=== PATIENT | male | born 1975 | race Hispanic/Latino ===

== ENCOUNTER 2018-06-06 12:32 | Inpatient (IN) | payer MEDICAID, OTHER ==
[2018-06-06] MEDS ORDERED: Naloxone 0.4 mg/ml Inj (Adult) ONE (12:42)
[2018-06-06] MEDS ORDERED: Succinylcholine 200 mg/10 ml Inj IV ONE ×2 (12:46→19:16)
[2018-06-06] MEDS ORDERED: Etomidate 20 mg/10ml Inj IV ONE (12:46)
[2018-06-06] MEDS ORDERED: Rocuronium 10 mg/ml (5 ml) ONE (12:51)
[2018-06-06] MEDS: Propofol 10 mg/ml 1,000 MG/100 ML VIAL IV PRN ×2 (13:00→19:30)
[2018-06-06] MEDS ORDERED: Propofol 10 mg/ml 1,000 MG/100 ML VIAL ONE (13:00)
--- NOTE | 2018-06-06 13:10 | ED PDOC ---
Arrival/HPI - General Chief Complaint: Cardiac Arrest Historian: Patient - History of Present Illness Narrative History of Present Illness (Text): 06/06/18 12:56 42 year old, whose past medical history includes migraines, who presents to the Emergency department brought in by EMS for cardiac arrest travel pta. Patient's father states patient drove up from [place] to [place]. When he got to the house he felt normal, sat down, and then began feeling hot and short of breath. Patient stiffened up and became unresponsive. Patient's father started CPR until EMS arrived. No pulse was found at the time. Upon EMS and ALS arrival, CPR was continued, patient went into V tach and was converted to sinus tach after 1 shock and patient started having spontaneous respirations. Patient was given 0.4 of narcan and patient had minimal response. Patient arrived to the ED obtunded w/agonal breathing. A second dose of 0.4 narcan was administered in the Emergency department w/o any improvement in mentation or respirations. Patient was then intubated by me for impending respiratory failure and airway protection. Time/Duration: Prior to Arrival Symptom Onset: Sudden Symptom Course: Unchanged Activities at Onset: Light Context: Home Past Medical History - Provider Review Nursing Documentation Reviewed: Yes - Infectious Disease Hx of Infectious Diseases: None - Cardiac Hx Cardiac Disorders: No - Pulmonary Hx Respiratory Disorders: No - HEENT Hx HEENT Disorder: No - Renal Hx Renal Disorder: No - Psychiatric Hx Substance Use: Yes - Anesthesia Hx Anesthesia: No Family/Social History - Physician Review Nursing Documentation Reviewed: Yes Family/Social History: Unknown Family HX Smoking Status: Smoker Currrent Status Unknown Hx Alcohol Use: No Hx Substance Use: Yes Allergies/Home Meds Allergies/Adverse Reactions: Allergies No Known Allergies Allergy (Verified 06/06/18 15:28) Home Medications: Home Meds Medication Instructions Recorded Confirmed RX: Unobtainable 06/06/18 06/06/18 Review of Systems - Review of Systems Systems not reviewed;Unavailable: Acuity of Condition Physical Exam - Physical Exam Narrative Physical Exam (Text): 06/06/18 13:11 Gen: Unresponsive. Head: NCAT. HEENT: EYES: pupils 4mm, reactive. MOUTH: posterior pharynx without erythema , uvula midline. CV: tachycardia. (+) S1S2, no M/G/R LUNGS: Agonal breathing. Rhonchi. Intubated. Abd: Soft, flat, nl BS. Neuro: GCS 6. ext: no cyanosis or edema Finger Stick Blood Glucose: 246 Medical Decision Making ED Course and Treatment: 06/06/18 13:12 Impression: 42 year old male presents to the Emergency department brought in by EMS for cardiac arrest travel pta. Plan: -- ABG -- Labs -- EKG -- Cardiac ISO -- Chest X-ray -- Urinalysis -- NG Tube -- [place] -- Reassess and disposition Progress Notes: 06/06/18 11:52 EMS states they received call about patient. 06/06/18 12:30 Patient arrived to Emergency department unresponsive. Pt was in sinus tachycardia. 0.4 of narcan was administered with no response. 06/06/18 12:45 20 of etomidate and 100 of succs was administered. 06/06/18 12:40 EKG reviewed, shows sinus tachycardia at 73 bpm. Normal Interval. Normal axis. Q wave intervals. ST elevations in V5, V6, AVL, and V1. EKG sent to Dr. Rush, who believes abnormal EKG is due to electrolyte imbalance. Labs should be reviewed, and EKG repeated. 06/06/18 12:50 8.0 ET tube placed. pt intubated. Good color noted. 22 lip line noted. 06/06/18 13:00 Propophol started 06/06/18 13:[address] Swanson, wants a stop on the amnio drip. 06/06/18 13:20 Pt w/questionalbe seizure-like activity (though coughing), will start Keppra. 06/06/18 13:[address] Berman, who agrees with kepra and suggests CT head. 06/06/18 14:28 Chest X-ray reviewed, shows: IMPRESSION: Satisfactory position of endotracheal tube. Nasogastric tube tip in the stomach. The side hole is at the level of the gastroesophageal junction. - Scribe Statement The provider has reviewed the documentation as recorded by the Scribe Geeta Barnhart All medical record entries made by the Scribe were at my direction and personal ly dictated by me. I have reviewed the chart and agree that the record accurately reflects my personal performance of the history, physical exam, medical decision making, and the department course for this patient. I have also personally directed, reviewed, and agree with the discharge instructions and disposition. Disposition/Present on Arrival - Present on Arrival Any Indicators Present on Arrival: No History of DVT/PE: No History of Uncontrolled Diabetes: No Urinary Catheter: No History of Decub. Ulcer: No History Surgical Site Infection Following: None - Disposition Have Diagnosis and Disposition been Completed?: Yes Diagnosis: Cardiac arrest Disposition: HOSPITALIZED Disposition Time: 13:00 Patient Plan: Admission, ICU Patient Problems: Current Active Problems Problem Status Onset Cardiac arrest Acute Status epilepticus Acute Condition: CRITICAL
[2018-06-06 13:13] LABS: BASO # 0.02 K/mm3 (0.0-2.0); BASO % 0.2 % (0.0-3.0); EOS # 0.1 (0.0-0.7); GRAN # 5.36 (1.4-6.5); GRAN % 52.6 % (50.0-68.0); HEMOGLOBIN 13.9 g/dL (14.0-18.0); LYMPH # 3.7 (1.2-3.4); LYMPH % 36.6 % (22.0-35.0); MEAN CELL VOLUME 97.6 fl (80.0-105.0); MEAN CORPUSCULAR HEMOGLOBIN 32.9 pg (25.0-35.0); MEAN CORPUSCULAR HGB CONC 33.7 g/dl (31.0-37.0); MEAN PLATELET VOLUME 9.8 fl (7.0-11.0); MONO % 9.6 % (1.0-6.0); RBC 4.22 10^6/uL (3.5-6.1); RED CELL DISTRIBUTION WIDTH 13.1 % (11.5-14.5); WHITE BLOOD COUNT 10.2 10^3/uL (4.5-11.0)
[2018-06-06 13:16] LABS: INR 1.08; PROTHROMBIN TIME 12.4 SECONDS (9.4-12.5)
[2018-06-06 13:23] LABS: ACETAMINOPHEN < 10.0 ug/ml (10.0-20.0); ALB/GLOB RATIO 1.4 (1.1-1.8); ALBUMIN 4.2 g/dL (3.0-4.8); ALT/SGPT 53 U/L (7-56); AST/SGOT 56 U/L (17-59); BLOOD UREA NITROGEN 14 mg/dL (7-21); CALCIUM 8.7 mg/dL (8.4-10.5); GFR NON-AFRICAN AMERICAN > 60; SALICYLATE < 1 mg/dL (2.0-20.0)
[2018-06-06] MEDS ORDERED: levETIRAcetam 1000mg/100ml NS 100 ML IV ONE (13:40)
--- NOTE | 2018-06-06 14:03 | RAD ---
Date of service: 06/06/2018 HISTORY: ETT placement COMPARISON: No prior. FINDINGS: LUNGS: No active pulmonary disease. PLEURA: No significant pleural effusion identified, no pneumothorax apparent. CARDIOVASCULAR: No atherosclerotic calcification present Normal. OSSEOUS STRUCTURES: No significant abnormalities. VISUALIZED UPPER ABDOMEN: Normal. OTHER FINDINGS: Satisfactory position of recently placed support apparatus including endotracheal tube and nasogastric tube. Optimal positioning/placement of the nasogastric tube would involve advancement by approximately 5 cm (the distal side hole is at the gastroesophageal junction). IMPRESSION: Satisfactory position of endotracheal tube. Nasogastric tube tip in the stomach. The side hole is at the level of the gastroesophageal junction.
--- NOTE | 2018-06-06 14:09 | CP.PCM.HP ---
Present on Admission - Present on Admission Any Indicators Present on Admission: No Review of Systems - Review of Systems Systems not reviewed;Unavailable: Intubated Past Patient History - Infectious Disease Hx of Infectious Diseases: None - Past Social History Smoking Status: Smoker Currrent Status Unknown - CARDIAC Hx Cardiac Disorders: No - PULMONARY Hx Respiratory Disorders: No - HEENT Hx HEENT Problems: No - RENAL Hx Chronic Kidney Disease: No - PSYCHIATRIC Hx Substance Use: Yes - ANESTHESIA Hx Anesthesia: No Meds Allergies/Adverse Reactions: Allergies Allergy/AdvReac Type Severity Reaction Status Date / Time No Known Allergies Allergy Unverified 06/06/18 13:01 Physical Exam - Constitutional Appears: In Acute Distress - Head Exam Head Exam: ATRAUMATIC, NORMOCEPHALIC - ENT Exam ENT Exam: Mucous Membranes Moist Additional comments: ett in place - Neck Exam Neck exam: Negative for: Lymphadenopathy, Thyromegaly - Respiratory Exam Respiratory Exam: Clear to Auscultation Bilateral. absent: Decreased Breath Sounds, Rales, Rhonchi, Wheezes, Respiratory Distress, Stridor - Cardiovascular Exam Cardiovascular Exam: REGULAR RHYTHM, +S1, +S2. absent: Systolic Murmur - GI/Abdominal Exam GI & Abdominal Exam: Hypoactive Bowel Sounds, Soft. absent: Distended, Guarding, Rebound, Rigid - Extremities Exam Extremities exam: Positive for: normal capillary refill. Negative for: joint swelling, pedal edema, tenderness - Neurological Exam Neurological exam: Altered - Skin Skin Exam: Dry, Intact, Normal Color Results - Vital Signs Recent Vital Signs: Last Vital Signs Temp 97.5 F L 06/06/18 13:47 Pulse 107 H 06/06/18 13:47 Resp 27 H 06/06/18 13:47 BP 134/56 L 06/06/18 13:47 Pulse Ox 93 L 06/06/18 13:47 - Labs Result Diagrams: 06/06/18 13:00 06/06/18 13:00 Labs: Laboratory Results - last 24 hr 06/06/18 06/06/18 06/06/18 13:00 13:00 13:00 WBC 10.2 RBC 4.22 Hgb 13.9 L Hct 41.2 L MCV 97.6 MCH 32.9 MCHC 33.7 RDW 13.1 Plt Count 204 MPV 9.8 Gran % 52.6 Lymph % (Auto) 36.6 H [place] % (Auto) 9.6 H Eos % (Auto) 1.0 L Baso % (Auto) 0.2 Gran # 5.36 Lymph # (Auto) 3.7 H [place] # (Auto) 1.0 H Eos # (Auto) 0.1 Baso # (Auto) 0.02 PT 12.4 INR 1.08 Sodium 139 Potassium 3.4 L Chloride 106 Carbon Dioxide 17 L Anion Gap 19 BUN 14 Creatinine 0.9 Est GFR ( Amer) > 60 Est GFR (Non-Af Amer) > 60 Random Glucose 241 H Calcium 8.7 Magnesium 2.0 Total Bilirubin 0.4 AST 56 ALT 53 Alkaline Phosphatase 58 Lactate Dehydrogenase 625 Total Creatine Kinase 84 Total Protein 7.1 Albumin 4.2 Globulin 2.9 Albumin/Globulin Ratio 1.4 Salicylates Acetaminophen Alcohol, Quantitative 06/06/18 06/06/18 13:00 13:00 WBC RBC Hgb Hct MCV MCH MCHC RDW Plt Count MPV Gran % Lymph % (Auto) [place] % (Auto) Eos % (Auto) Baso % (Auto) Gran # Lymph # (Auto) [place] # (Auto) Eos # (Auto) Baso # (Auto) PT INR Sodium Potassium Chloride Carbon Dioxide Anion Gap BUN Creatinine Est GFR ( Amer) Est GFR (Non-Af Amer) Random Glucose Calcium Magnesium Total Bilirubin AST ALT Alkaline Phosphatase Lactate Dehydrogenase Total Creatine Kinase Total Protein Albumin Globulin Albumin/Globulin Ratio Salicylates < 1 L Acetaminophen < 10.0 L Alcohol, Quantitative < 10 Assessment & Plan - Date & Time Date: 06/06/18 Time: 14:09
[2018-06-06] MEDS ORDERED: Midazolam 2 MG/2 ML VIAL IVP STA ×2 (14:12→14:35)
[2018-06-06 14:19] LABS: URINE BILIRUBIN NEGATIVE (NEGATIVE); URINE BLOOD SMALL (NEGATIVE); URINE GLUCOSE (UA) NEGATIVE (NEGATIVE); URINE LEUKOCYTE ESTERASE NEGATIVE Leu/uL (NEGATIVE); URINE PROTEIN 100 mg/dL (<30 mg/dL); URINE UROBILINOGEN 0.2 E.U./dL (<1 E.U./dL)
[2018-06-06 14:21] LABS: ARTERIAL BLOOD GAS HCO3 11.1 mmol/L (21-28); ARTERIAL BLOOD GAS O2 CAPACITY 19.4 mL/dl (16-24); ARTERIAL BLOOD GAS O2 CONTENT 19.6 ML/dl (15-23); ARTERIAL BLOOD GAS O2 SAT 100.9 % (95-98); ARTERIAL BLOOD GAS PCO2 35 mm/Hg (35-45); ARTERIAL BLOOD GAS TCO2 12.2 mmol.L (22-28)
[2018-06-06 14:24] LABS: ARTERIAL BLOOD GAS PH 7.11 (7.35-7.45)
[2018-06-06 14:26] LABS: URINE APPEARANCE CLEAR (CLEAR); URINE COLOR YELLOW (YELLOW)
[2018-06-06] MEDS ORDERED: Midazolam 100 mg/100ml in NS 100 MG/100 ML SOL IV PRN (14:28)
[2018-06-06 14:29] LABS: TROPONIN I < 0.01 ng/mL
[2018-06-06] MEDS ORDERED: Midazolam 2 MG/2 ML VIAL ONE ×2 (14:32→15:01)
[2018-06-06] MEDS ORDERED: Midazolam 50 mg/10 ml Inj IVP ONE (14:36)
[2018-06-06 14:42] LABS: URINE BACTERIA FEW /hpf; URINE RBC 0 - 2 /hpf (0-2)
[2018-06-06 14:45] LABS: BARBITURATES, UR NEGATIVE (NEGATIVE); BENZODIAZEPINES, UR NEGATIVE (NEGATIVE); OPIATES, UR NEGATIVE (NEGATIVE); PHENCYCLIDINE, UR NEGATIVE (NEGATIVE)
[2018-06-06] MEDS ORDERED: Sodium Bicarbonate 8.4% 80 MEQ in Dextrose 5%/0.45% NS 1,000 ML IV SCH (14:45)
[2018-06-06] MEDS: Midazolam 100 mg/100ml in NS 100 MG/100 ML SOL IV PRN (14:55)
[2018-06-06] MEDS ORDERED: Midazolam 2 MG/2 ML VIAL IV ONE ×2 (15:00)
[2018-06-06] MEDS ORDERED: Sodium Chloride 0.9% 500 ML IV STA (15:36)
--- NOTE | 2018-06-06 15:50 | CP.PCM.CON ---
History of Present Illness - History of Present Illness History of Present Illness: Neurology Consultation Note: Mr. Robbins is a 42-year-old man with no significant past medical history, who went to his father's house today, had an episode of seizure-like activity, and subsequently became pulseless. EMS was called and arrived on the scene after chest compressions were started. He was in Vtach and was shocked. He then converted to sinus tachycardia. He was brought to the ED and required intubation for airway protection. He appeared to have tonic seizures and was given Ativan, started on propofol, but his BP dropped. He was then started on Versed drip and loaded with Keppra as well. He continues to have tonic movements that are sometimes voluntary in nature. Review of Systems - Review of Systems Systems not reviewed;Unavailable: Intubated Past Patient History - Infectious Disease Hx of Infectious Diseases: None - Past Social History Smoking Status: Smoker Currrent Status Unknown - CARDIAC Hx Cardiac Disorders: No - PULMONARY Hx Respiratory Disorders: No - HEENT Hx HEENT Problems: No - RENAL Hx Chronic Kidney Disease: No - PSYCHIATRIC Hx Substance Use: Yes - ANESTHESIA Hx Anesthesia: No Meds Allergies/Adverse Reactions: Allergies Allergy/AdvReac Type Severity Reaction Status Date / Time No Known Allergies Allergy Verified 06/06/18 15:28 - Medications Medications: Current Medications Propofol (Diprivan) 1,000 mg in 100 mls @ 2.041 mls/hr IV .Q24H PRN; Protocol PRN Reason: TITRATE PER MD ORDER Last Admin: 06/06/18 13:00 Dose: 5 mcg/kg/min, 2.041 mls/hr Midazolam 100 mg/100ml in NS (Midazolam 100 Mg/100ml In Ns) 100 mg in 100 mls @ 5 mls/hr IV .Q20H PRN; Protocol PRN Reason: Agitation Last Admin: 06/06/18 14:55 Dose: 5 mg/hr, 5 mls/hr Sodium Bicarbonate 80 meq/ (Dextrose/Sodium Chloride) 1,080 mls @ 150 mls/hr IV .Q7H12M JENNIFER Last Admin: 06/06/18 15:27 Dose: 150 mls/hr Potassium Chloride (Potassium Chloride 20 Meq/100 Ml) 20 meq in 100 mls @ 50 mls/hr IVPB ONCE ONE Stop: 06/06/18 16:48 Sodium Chloride (Sodium Chloride 0.9%) 500 mls @ 999 mls/hr IV .Q31M STA Stop: 06/06/18 16:06 Physical Exam - Neurological Exam Additional comments: Moves all extremities, but is intubated and sedated currently. Pupils are dilated, but responsive to light from 9mm to 4mm bilaterally. Reflexes are normal, plantar responses are downgoing. Results - Vital Signs Recent Vital Signs: Last Vital Signs Temp 97.5 F L 06/06/18 13:47 Pulse 107 H 06/06/18 13:47 Resp 27 H 06/06/18 13:47 BP 134/56 L 06/06/18 13:47 Pulse Ox 93 L 06/06/18 13:47 - Labs Result Diagrams: 06/06/18 13:00 06/06/18 13:00 Labs: Laboratory Results - last 24 hr 06/06/18 06/06/18 06/06/18 13:00 13:00 13:00 WBC 10.2 RBC 4.22 Hgb 13.9 L Hct 41.2 L MCV 97.6 MCH 32.9 MCHC 33.7 RDW 13.1 Plt Count 204 MPV 9.8 Gran % 52.6 Lymph % (Auto) 36.6 H [place] % (Auto) 9.6 H Eos % (Auto) 1.0 L Baso % (Auto) 0.2 Gran # 5.36 Lymph # (Auto) 3.7 H [place] # (Auto) 1.0 H Eos # (Auto) 0.1 Baso # (Auto) 0.02 PT 12.4 INR 1.08 pCO2 pO2 HCO3 ABG pH ABG Total CO2 ABG O2 Saturation ABG O2 Content ABG Base Excess ABG Hemoglobin ABG Carboxyhemoglobin POC ABG HHb (Measured) ABG Methemoglobin ABG O2 Capacity Hgb O2 Saturation FiO2 Sodium 139 Potassium 3.4 L Chloride 106 Carbon Dioxide 17 L Anion Gap 19 BUN 14 Creatinine 0.9 Est GFR ( Amer) > 60 Est GFR (Non-Af Amer) > 60 Random Glucose 241 H Calcium 8.7 Magnesium 2.0 Total Bilirubin 0.4 AST 56 ALT 53 Alkaline Phosphatase 58 Lactate Dehydrogenase 625 Total Creatine Kinase 84 Troponin I < 0.01 Total Protein 7.1 Albumin 4.2 Globulin 2.9 Albumin/Globulin Ratio 1.4 Urine Color Urine Appearance Urine pH Ur Specific [place] Urine Protein Urine Glucose (UA) Urine Ketones Urine Blood Urine Nitrate Urine Bilirubin Urine Urobilinogen Ur Leukocyte Esterase Urine RBC Urine WBC Ur Epithelial Cells Urine Bacteria Urine Other Salicylates Urine Opiates Screen Urine Methadone Screen Acetaminophen Ur Barbiturates Screen Ur Phencyclidine Scrn Ur Amphetamines Screen U Benzodiazepines Scrn U Oth Cocaine Metabols U Cannabinoids Screen Alcohol, Quantitative 06/06/18 06/06/18 06/06/18 13:00 13:00 13:30 WBC RBC Hgb Hct MCV MCH MCHC RDW Plt Count MPV Gran % Lymph % (Auto) [place] % (Auto) Eos % (Auto) Baso % (Auto) Gran # Lymph # (Auto) [place] # (Auto) Eos # (Auto) Baso # (Auto) PT INR pCO2 pO2 HCO3 ABG pH ABG Total CO2 ABG O2 Saturation ABG O2 Content ABG Base Excess ABG Hemoglobin ABG Carboxyhemoglobin POC ABG HHb (Measured) ABG Methemoglobin ABG O2 Capacity Hgb O2 Saturation FiO2 Sodium Potassium Chloride Carbon Dioxide Anion Gap BUN Creatinine Est GFR ( Amer) Est GFR (Non-Af Amer) Random Glucose Calcium Magnesium Total Bilirubin AST ALT Alkaline Phosphatase Lactate Dehydrogenase Total Creatine Kinase Troponin I Total Protein Albumin Globulin Albumin/Globulin Ratio Urine Color Yellow Urine Appearance Clear Urine pH 6.0 Ur Specific [place] >= 1.030 Urine Protein 100 H Urine Glucose (UA) Negative Urine Ketones Negative Urine Blood Small H Urine Nitrate Negative Urine Bilirubin Negative Urine Urobilinogen 0.2 Ur Leukocyte Esterase Negative Urine RBC 0 - 2 Urine WBC 1 - 3 Ur Epithelial Cells 1 - 3 Urine Bacteria Few Urine Other Usperm Salicylates < 1 L Urine Opiates Screen Urine Methadone Screen Acetaminophen < 10.0 L Ur Barbiturates Screen Ur Phencyclidine Scrn Ur Amphetamines Screen U Benzodiazepines Scrn U Oth Cocaine Metabols U Cannabinoids Screen Alcohol, Quantitative < 10 06/06/18 06/06/18 13:30 14:05 WBC RBC Hgb Hct MCV MCH MCHC RDW Plt Count MPV Gran % Lymph % (Auto) [place] % (Auto) Eos % (Auto) Baso % (Auto) Gran # Lymph # (Auto) [place] # (Auto) Eos # (Auto) Baso # (Auto) PT INR pCO2 35 pO2 283.0 H HCO3 11.1 L ABG pH 7.11 L* ABG Total CO2 12.2 L ABG O2 Saturation 100.9 H ABG O2 Content 19.6 ABG Base Excess -17.5 L ABG Hemoglobin 14.0 ABG Carboxyhemoglobin 4.0 H POC ABG HHb (Measured) -0.9 L ABG Methemoglobin 0.7 ABG O2 Capacity 19.4 Hgb O2 Saturation 96.2 FiO2 60.0 Sodium Potassium Chloride Carbon Dioxide Anion Gap BUN Creatinine Est GFR ( Amer) Est GFR (Non-Af Amer) Random Glucose Calcium Magnesium Total Bilirubin AST ALT Alkaline Phosphatase Lactate Dehydrogenase Total Creatine Kinase Troponin I Total Protein Albumin Globulin Albumin/Globulin Ratio Urine Color Urine Appearance Urine pH Ur Specific [place] Urine Protein Urine Glucose (UA) Urine Ketones Urine Blood Urine Nitrate Urine Bilirubin Urine Urobilinogen Ur Leukocyte Esterase Urine RBC Urine WBC Ur Epithelial Cells Urine Bacteria Urine Other Salicylates Urine Opiates Screen Negative Urine Methadone Screen Negative Acetaminophen Ur Barbiturates Screen Negative Ur Phencyclidine Scrn Negative Ur Amphetamines Screen Negative U Benzodiazepines Scrn Negative U Oth Cocaine Metabols Negative U Cannabinoids Screen Positive H Alcohol, Quantitative Assessment & Plan (1) Status epilepticus Assessment and Plan: Continue Keppra and Versed drip at 5 mg/hr after a 5 mg bolus. Will order STAT VEEG to evaluate for status since the patient's symptoms are not typical. STAT CT scan of the head is also needed now for further evaluation. MRI of the brain can be obtained when the patient is stable. Admit to ICU for close observation. Thank you for this consultation. Status: Acute
--- NOTE | 2018-06-06 15:54 | CP.PCM.HP ---
<Mukul Mueller - Last Filed: 06/06/18 17:21> History of Present Illness - History of Present Illness History of Present Illness: Mukul Ervin DO: [facility] for Hospitalist Service 42 year old male with a past medical history of cannabinoid hyperemesis syndrome who presented to [facility] [place] for cardiac arrest. Patient drove in from [place] to visit family and reported feeling short of breath and sat down for a minute and then started arching his back and became unresponsive. Patient was noted to be pulseless, 911 was called, father started CPR on patient and neighbor came over who assisted with breathing. In the field the patient underwent CPR and was shocked for v-fibrillation with ROSC. In the ED patient was intubated and was agitated requiring Propofol and Versed drip. Patient's EKG showed somed ST changed in V4-V6; code heart correspondence section supervisor physician was spoken to in regards to the EKG findings. Patient was also found to be acidotic warranting a bicarbonate drip. Neurology was consulted for what appeared to be convulsions and recommended Midazolam to assist with seizure control. Important to note, patient's family report he had one week of a head cold and when he returned home he was sweating. Otherwise, 12 point ROS could not be obtained secondary to patient being unresponsive and intubated. PMH: cannabis hyperemesis syndrome, migraines PSH: unknown Allergies: NKDA Social: Unemployed, has a girlfriend, uses Marijuana Present on Admission - Present on Admission Any Indicators Present on Admission: No Review of Systems - Review of Systems Systems not reviewed;Unavailable: Acuity of Condition, Altered Mental Status, Intubated Past Patient History - Infectious Disease Hx of Infectious Diseases: None - Past Social History Smoking Status: Smoker Currrent Status Unknown - CARDIAC Hx Cardiac Disorders: No - PULMONARY Hx Respiratory Disorders: No - HEENT Hx HEENT Problems: No - RENAL Hx Chronic Kidney Disease: No - PSYCHIATRIC Hx Substance Use: Yes - ANESTHESIA Hx Anesthesia: No Meds Allergies/Adverse Reactions: Allergies Allergy/AdvReac Type Severity Reaction Status Date / Time No Known Allergies Allergy Verified 06/06/18 15:28 Physical Exam - Constitutional Appears: Agitated - Eye Exam Eye Exam: PERRL Pupil Exam: Miosis - ENT Exam ENT Exam: Mucous Membranes Dry - Respiratory Exam Respiratory Exam: Clear to Auscultation Bilateral, NORMAL BREATHING PATTERN. absent: Accessory Muscle Use - Cardiovascular Exam Cardiovascular Exam: Tachycardia, +S1, +S2 - GI/Abdominal Exam GI & Abdominal Exam: Normal Bowel Sounds. absent: Guarding - Exam Additional comments: [place] in - Extremities Exam Extremities exam: Positive for: normal inspection, pedal pulses present. Negative for: calf tenderness - Skin Skin Exam: Dry, Intact, Normal Color, Warm Results - Vital Signs Recent Vital Signs: Last Vital Signs Temp 97.5 F L 06/06/18 13:47 Pulse 107 H 06/06/18 13:47 Resp 27 H 06/06/18 13:47 BP 134/56 L 06/06/18 13:47 Pulse Ox 93 L 06/06/18 13:47 - Labs Result Diagrams: 06/06/18 13:00 06/06/18 13:00 Labs: Laboratory Results - last 24 hr 06/06/18 06/06/18 06/06/18 13:00 13:00 13:00 WBC 10.2 RBC 4.22 Hgb 13.9 L Hct 41.2 L MCV 97.6 MCH 32.9 MCHC 33.7 RDW 13.1 Plt Count 204 MPV 9.8 Gran % 52.6 Lymph % (Auto) 36.6 H Mcculloch % (Auto) 9.6 H Eos % (Auto) 1.0 L Baso % (Auto) 0.2 Gran # 5.36 Lymph # (Auto) 3.7 H Mcculloch # (Auto) 1.0 H Eos # (Auto) 0.1 Baso # (Auto) 0.02 PT 12.4 INR 1.08 pCO2 pO2 HCO3 ABG pH ABG Total CO2 ABG O2 Saturation ABG O2 Content ABG Base Excess ABG Hemoglobin ABG Carboxyhemoglobin POC ABG HHb (Measured) ABG Methemoglobin ABG O2 Capacity Hgb O2 Saturation FiO2 Sodium 139 Potassium 3.4 L Chloride 106 Carbon Dioxide 17 L Anion Gap 19 BUN 14 Creatinine 0.9 Est GFR ( Amer) > 60 Est GFR (Non-Af Amer) > 60 Random Glucose 241 H Calcium 8.7 Magnesium 2.0 Total Bilirubin 0.4 AST 56 ALT 53 Alkaline Phosphatase 58 Lactate Dehydrogenase 625 Total Creatine Kinase 84 Troponin I < 0.01 Total Protein 7.1 Albumin 4.2 Globulin 2.9 Albumin/Globulin Ratio 1.4 Urine Color Urine Appearance Urine pH Ur Specific [place] Urine Protein Urine Glucose (UA) Urine Ketones Urine Blood Urine Nitrate Urine Bilirubin Urine Urobilinogen Ur Leukocyte Esterase Urine RBC Urine WBC Ur Epithelial Cells Urine Bacteria Urine Other Salicylates Urine Opiates Screen Urine Methadone Screen Acetaminophen Ur Barbiturates Screen Ur Phencyclidine Scrn Ur Amphetamines Screen U Benzodiazepines Scrn U Oth Cocaine Metabols U Cannabinoids Screen Alcohol, Quantitative 06/06/18 06/06/18 06/06/18 13:00 13:00 13:30 WBC RBC Hgb Hct MCV MCH MCHC RDW Plt Count MPV Gran % Lymph % (Auto) Mcculloch % (Auto) Eos % (Auto) Baso % (Auto) Gran # Lymph # (Auto) Mcculloch # (Auto) Eos # (Auto) Baso # (Auto) PT INR pCO2 pO2 HCO3 ABG pH ABG Total CO2 ABG O2 Saturation ABG O2 Content ABG Base Excess ABG Hemoglobin ABG Carboxyhemoglobin POC ABG HHb (Measured) ABG Methemoglobin ABG O2 Capacity Hgb O2 Saturation FiO2 Sodium Potassium Chloride Carbon Dioxide Anion Gap BUN Creatinine Est GFR ( Amer) Est GFR (Non-Af Amer) Random Glucose Calcium Magnesium Total Bilirubin AST ALT Alkaline Phosphatase Lactate Dehydrogenase Total Creatine Kinase Troponin I Total Protein Albumin Globulin Albumin/Globulin Ratio Urine Color Yellow Urine Appearance Clear Urine pH 6.0 Ur Specific [place] >= 1.030 Urine Protein 100 H Urine Glucose (UA) Negative Urine Ketones Negative Urine Blood Small H Urine Nitrate Negative Urine Bilirubin Negative Urine Urobilinogen 0.2 Ur Leukocyte Esterase Negative Urine RBC 0 - 2 Urine WBC 1 - 3 Ur Epithelial Cells 1 - 3 Urine Bacteria Few Urine Other Usperm Salicylates < 1 L Urine Opiates Screen Urine Methadone Screen Acetaminophen < 10.0 L Ur Barbiturates Screen Ur Phencyclidine Scrn Ur Amphetamines Screen U Benzodiazepines Scrn U Oth Cocaine Metabols U Cannabinoids Screen Alcohol, Quantitative < 10 06/06/18 06/06/18 13:30 14:05 WBC RBC Hgb Hct MCV MCH MCHC RDW Plt Count MPV Gran % Lymph % (Auto) M[place]ulloch % (Auto) Eos % (Auto) Baso % (Auto) Gran # Lymph # (Auto) M[place]ulloch # (Auto) Eos # (Auto) Baso # (Auto) PT INR pCO2 35 pO2 283.0 H HCO3 11.1 L ABG pH 7.11 L* ABG Total CO2 12.2 L ABG O2 Saturation 100.9 H ABG O2 Content 19.6 ABG Base Excess -17.5 L ABG Hemoglobin 14.0 ABG Carboxyhemoglobin 4.0 H POC ABG HHb (Measured) -0.9 L ABG Methemoglobin 0.7 ABG O2 Capacity 19.4 Hgb O2 Saturation 96.2 FiO2 60.0 Sodium Potassium Chloride Carbon Dioxide Anion Gap BUN Creatinine Est GFR ( Amer) Est GFR (Non-Af Amer) Random Glucose Calcium Magnesium Total Bilirubin AST ALT Alkaline Phosphatase Lactate Dehydrogenase Total Creatine Kinase Troponin I Total Protein Albumin Globulin Albumin/Globulin Ratio Urine Color Urine Appearance Urine pH Ur Specific [place] Urine Protein Urine Glucose (UA) Urine Ketones Urine Blood Urine Nitrate Urine Bilirubin Urine Urobilinogen Ur Leukocyte Esterase Urine RBC Urine WBC Ur Epithelial Cells Urine Bacteria Urine Other Salicylates Urine Opiates Screen Negative Urine Methadone Screen Negative Acetaminophen Ur Barbiturates Screen Negative Ur Phencyclidine Scrn Negative Ur Amphetamines Screen Negative U Benzodiazepines Scrn Negative U Oth Cocaine Metabols Negative U Cannabinoids Screen Positive H Alcohol, Quantitative - EKG Data Rate: Tachycardia Assessment & Plan - Assessment and Plan (Free Text) Assessment: 42 year old male with a past medical history of cannabis hyperemesis syndrome who came in s/p cardiac arrest and obtained ROSC with CPR and defibrillation. Plan: 1) S/P cardiac arrest - Intubated on mechanical ventilation - EKG shows ST-T changes in V4-V6; will trend troponins - ICU and cardiology consulted - Contacted on-call (code heart manager care management) given EKG showed some ST elevation in V4-V6; agreed that EKG findings most likely represent pseudoinfarct pattern seen in the setting of cannabinoid ingestion, acidosis, and electrolyte abnormalities - Dr. Hernandez consulted 2) Seizures and agitation - CT head ordered - Video EEG - neurology consulted - Propafol and Versed ggt; titrate to reduce seizure/agitation - Consider LP 3) Metabolic acidosis - D5W 1/2 NS with 80 mEq of bicarbonate at 150 mls/hr 4) Fever - Tylenol 650 mg q6h PRN for fever - blood culture, urine cultures, and sputum cultures Case reviewed and discussed with attending physician, Dr. Berman - Date & Time Date: 06/06/18 Time: 17:25 <Cullen,Anwar A - Last Filed: 06/06/18 19:04> Results - Vital Signs Recent Vital Signs: Last Vital Signs Temp 100.0 F H 06/06/18 18:14 Pulse 88 06/06/18 18:14 Resp 30 H 06/06/18 16:51 BP 93/56 L 06/06/18 18:15 Pulse Ox 100 06/06/18 18:14 - Labs Result Diagrams: 06/06/18 13:00 06/06/18 13:00 Labs: Laboratory Results - last 24 hr 06/06/18 06/06/18 06/06/18 13:00 13:00 13:00 WBC 10.2 RBC 4.22 Hgb 13.9 L Hct 41.2 L MCV 97.6 MCH 32.9 MCHC 33.7 RDW 13.1 Plt Count 204 MPV 9.8 Gran % 52.6 Lymph % (Auto) 36.6 H Mcculloch % (Auto) 9.6 H Eos % (Auto) 1.0 L Baso % (Auto) 0.2 Gran # 5.36 Lymph # (Auto) 3.7 H Mcculloch # (Auto) 1.0 H Eos # (Auto) 0.1 Baso # (Auto) 0.02 PT 12.4 INR 1.08 pCO2 pO2 HCO3 ABG pH ABG Total CO2 ABG O2 Saturation ABG O2 Content ABG Base Excess ABG Hemoglobin ABG Carboxyhemoglobin POC ABG HHb (Measured) ABG Methemoglobin ABG O2 Capacity Hgb O2 Saturation FiO2 Sodium 139 Potassium 3.4 L Chloride 106 Carbon Dioxide 17 L Anion Gap 19 BUN 14 Creatinine 0.9 Est GFR ( Amer) > 60 Est GFR (Non-Af Amer) > 60 Random Glucose 241 H Calcium 8.7 Magnesium 2.0 Total Bilirubin 0.4 AST 56 ALT 53 Alkaline Phosphatase 58 Lactate Dehydrogenase 625 Total Creatine Kinase 84 CK-MB (CK-2) CK-MB (CK-2) % Troponin I < 0.01 Total Protein 7.1 Albumin 4.2 Globulin 2.9 Albumin/Globulin Ratio 1.4 Urine Color Urine Appearance Urine pH Ur Specific [place] Urine Protein Urine Glucose (UA) Urine Ketones Urine Blood Urine Nitrate Urine Bilirubin Urine Urobilinogen Ur Leukocyte Esterase Urine RBC Urine WBC Ur Epithelial Cells Urine Bacteria Urine Other Salicylates Urine Opiates Screen Urine Methadone Screen Acetaminophen Ur Barbiturates Screen Ur Phencyclidine Scrn Ur Amphetamines Screen U Benzodiazepines Scrn U Oth Cocaine Metabols U Cannabinoids Screen Alcohol, Quantitative 06/06/18 06/06/18 06/06/18 13:00 13:00 13:30 WBC RBC Hgb Hct MCV MCH MCHC RDW Plt Count MPV Gran % Lymph % (Auto) [place]ull[place] % (Auto) Eos % (Auto) Baso % (Auto) Gran # Lymph # (Auto) [place]ull[place] # (Auto) Eos # (Auto) Baso # (Auto) PT INR pCO2 pO2 HCO3 ABG pH ABG Total CO2 ABG O2 Saturation ABG O2 Content ABG Base Excess ABG Hemoglobin ABG Carboxyhemoglobin POC ABG HHb (Measured) ABG Methemoglobin ABG O2 Capacity Hgb O2 Saturation FiO2 Sodium Potassium Chloride Carbon Dioxide Anion Gap BUN Creatinine Est GFR ( Amer) Est GFR (Non-Af Amer) Random Glucose Calcium Magnesium Total Bilirubin AST ALT Alkaline Phosphatase Lactate Dehydrogenase Total Creatine Kinase CK-MB (CK-2) CK-MB (CK-2) % Troponin I Total Protein Albumin Globulin Albumin/Globulin Ratio Urine Color Yellow Urine Appearance Clear Urine pH 6.0 Ur Specific [place] >= 1.030 Urine Protein 100 H Urine Glucose (UA) Negative Urine Ketones Negative Urine Blood Small H Urine Nitrate Negative Urine Bilirubin Negative Urine Urobilinogen 0.2 Ur Leukocyte Esterase Negative Urine RBC 0 - 2 Urine WBC 1 - 3 Ur Epithelial Cells 1 - 3 Urine Bacteria Few Urine Other Usperm Salicylates < 1 L Urine Opiates Screen Urine Methadone Screen Acetaminophen < 10.0 L Ur Barbiturates Screen Ur Phencyclidine Scrn Ur Amphetamines Screen U Benzodiazepines Scrn U Oth Cocaine Metabols U Cannabinoids Screen Alcohol, Quantitative < 10 06/06/18 06/06/18 06/06/18 13:30 14:05 17:30 WBC RBC Hgb Hct MCV MCH MCHC RDW Plt Count MPV Gran % Lymph % (Auto) Mcculloch % (Auto) Eos % (Auto) Baso % (Auto) Gran # Lymph # (Auto) [place]ulloch # (Auto) Eos # (Auto) Baso # (Auto) PT INR pCO2 35 pO2 283.0 H HCO3 11.1 L ABG pH 7.11 L* ABG Total CO2 12.2 L ABG O2 Saturation 100.9 H ABG O2 Content 19.6 ABG Base Excess -17.5 L ABG Hemoglobin 14.0 ABG Carboxyhemoglobin 4.0 H POC ABG HHb (Measured) -0.9 L ABG Methemoglobin 0.7 ABG O2 Capacity 19.4 Hgb O2 Saturation 96.2 FiO2 60.0 Sodium Potassium Chloride Carbon Dioxide Anion Gap BUN Creatinine Est GFR ( Amer) Est GFR (Non-Af Amer) Random Glucose Calcium Magnesium Total Bilirubin AST ALT Alkaline Phosphatase Lactate Dehydrogenase 847 H Total Creatine Kinase 584 H CK-MB (CK-2) 7.9 H CK-MB (CK-2) % 1.4 L Troponin I 0.69 H* D Total Protein Albumin Globulin Albumin/Globulin Ratio Urine Color Urine Appearance Urine pH Ur Specific [place] Urine Protein Urine Glucose (UA) Urine Ketones Urine Blood Urine Nitrate Urine Bilirubin Urine Urobilinogen Ur Leukocyte Esterase Urine RBC Urine WBC Ur Epithelial Cells Urine Bacteria Urine Other Salicylates Urine Opiates Screen Negative Urine Methadone Screen Negative Acetaminophen Ur Barbiturates Screen Negative Ur Phencyclidine Scrn Negative Ur Amphetamines Screen Negative U Benzodiazepines Scrn Negative U Oth Cocaine Metabols Negative U Cannabinoids Screen Positive H Alcohol, Quantitative Attending/Attestation - Attestation I have personally seen and examined this patient.: Yes I have fully participated in the care of the patient.: Yes I have reviewed all pertinent clinical information: Yes Notes (Text): 06/06/18 18:58 42 year old male with past medical history of cannabis use who presented today s/p cardiac arrest. Obtained ROSC with CPR and defibrillation for vtach on the field. In the ER he was intubated for airway protection and agonal breathing. He was found to have significant seizures and started on keppra, versed and proprofol. Neurology evaluation was appreciated who requested CT head and video EEG, still pending. EKG showed some ST changes in anterolateral leads. Initial troponin was negative. EKGs were reviewed with code heart manager care management who recommended to correct electrolytes and acidosis. Started on iv bicarb and potassium supplementation. Will trend troponins and request cardiology evaluation. Echocardiogram and lipid panel ordered. Consider aspirin if CT head is negative. Patient will be admitted to the ICU. Case discussed with Dr. Swanson. Family is at bedside and questions were answered. Yoko Berman MD Hospitalist.
[2018-06-06 18:21] LABS: CK MB% 1.4 % (2.5-3.0); CK-MB 7.9 ng/mL (0.0-3.6); TROPONIN I 0.69 ng/mL
[2018-06-06] MEDS ORDERED: Sodium Chloride 0.9% 1,000 ML IV STA (19:16)
[2018-06-06] MEDS ORDERED: Naloxone 0.4 mg/ml Inj (Adult) IVP ONE (19:16)
[2018-06-06] MEDS ORDERED: Etomidate 20 mg/10ml Inj IVP STA (19:16)
[2018-06-06 19:48] LABS: HDL CHOLESTEROL 25 mg/dL (29-60)
[2018-06-06 20:00] LABS: LDL CHOLESTEROL 144 mg/dL (0-129)
[2018-06-06 20:34] VITALS: BMI 23.5
[2018-06-06] MEDS ORDERED: Influenza Vaccine 60 mcg/0.5 mL SYR (4YR UP) IM ONE (20:34)
[2018-06-06] MEDS ORDERED: Pneumococcal 23-Valent Vaccine IM ONE (20:34)
--- NOTE | 2018-06-06 21:09 | CON ---
DATE: 06/06/2018 COMPOSING ROOM SUPERVISOR CONSULT REQUESTING PHYSICIAN: Dr. Berman. CHIEF COMPLAINT: The patient presented with CPR cardiac arrest. HISTORY OF PRESENT ILLNESS: Mr. Robbins, he is a 42-year-old male who has no significant past medical history, it was stated that he had come home and was sitting on the couch and had an episode of seizure-like activity at which time the patient developed cardiac arrest and CPR was done. The patient had episode of ventricular tachycardia as well, was transported to the emergency room. Since being in the emergency room, the patient has had seizure-like activity and at present he is on Keppra, Versed, as well as Diprivan, and is on bicarb drip for metabolic acidosis. The patient is on ventilator for respiratory support and airway protection. This patient has a history of cannabinoid use and does have what is known as cannabinoid hyperemesis syndrome. PAST MEDICAL HISTORY: As above. ALLERGIES: HE HAS NO KNOWN ALLERGIES. CURRENT MEDICATIONS: Can be evaluated as per the nurse's intake form. SOCIAL HISTORY: The patient does use cannabinoids or cannabis. Smoking history: Unknown. FAMILY HISTORY: Unknown. REVIEW OF SYSTEMS: Unable to assess or obtain because the patient is sedated, on the ventilator. PHYSICAL EXAMINATION VITAL SIGNS: Note that his temperature is 97.4, his pulse is 94, respirations are 20, and BP is 99/52. SKIN: Warm and dry. HEENT: Head: Atraumatic, normocephalic. Eyes: Reactive to light. Ear, nose, and throat: Seem to be within normal limits. NECK: Supple. No JVD. No thyroid enlargement. No lymph nodes. HEART: Regular rate and rhythm. Normal S1, S2. LUNGS: Reveal good breath sounds bilaterally. ABDOMEN: Soft. Decreased bowel sounds. GENITALIA AND RECTAL: Deferred. MUSCULOSKELETAL: No joint deformities. EXTREMITIES: Reveal no edema. NEUROLOGICAL: The patient is sedated, on the ventilator. LABORATORY DATA: Laboratories reveal a white count of 10.2, hemoglobin of 13.9, hematocrit 41.2, and platelets of 204,000. His PT is 12.4, INR is 1.08. Arterial blood gas reveals a pH of 7.11, pCO2 of 35, and a pO2 of 283. His sodium is 139, potassium 3.4, chloride 106, CO2 of 17, BUN of 14, creatinine 0.9, and glucose of 241. The patient's tox screen is positive for cannabinoids. IMPRESSION: As far as my impression, this patient has cardiac arrest requiring CPR. The patient also had ventricular tachycardia. As this point the patient had respiratory failure and now is on ventilator support. He had episodes of seizure activity and has significant metabolic acidosis at this time. The patient has a history of cannabinoid use. PLAN: As far as our plan, the patient is on bicarb drip and he continues to require Versed as well as Diprivan. We have called consult for Cardiology as well as Neurology. The patient continues to require the ventilator and we will titrate FIO2 down as tolerated. We will follow his chest x-ray and arterial blood gases, and we will continue to treat aggressively along with the other consultants and the primary care doctor. Carmelo Swanson MD
--- NOTE | 2018-06-06 23:24 | PN ---
DATE: 06/06/2018 Incidentally, I found a consult on my list for the patient, Felix Robbins around 6:30 p.m. and I did review the case in the computer, discussed the case with Dr. Berman. Apparently, the patient drove from [place] to [place] and he sustained a cardiac arrest and he did test positive for cannabinoids. After suffering a cardiac arrest in the field, in the emergency room the patient had another cardiac arrest that required resuscitation. The patient was also experiencing recurrent seizure activity and so that CAT scan could not be performed yet. The initial EKG was consistent with recent anterolateral SC, and Dr. Rush the marketing project specialist was contacted and the patient was not considered a candidate for immediate cardiac catheterization. In the meantime, Dr. Alarcon, the neurologist was consulted, and the patient was as status epilepticus and was started on Keppra and drips and a stat VEEG was ordered, and the brain MRI will be obtained when the patient is stable. In the meantime, in view of abnormal EKG and borderline troponin elevation and hypokalemia, I recommend replacing potassium, and if CT scan reveals no hemorrhage, start baby aspirin and obtain a bedside echocardiographic study. Boyd Hernandez MD
[2018-06-06 23:58] LABS: ARTERIAL BLOOD GAS HCO3 21.9 mmol/L (21-28); ARTERIAL BLOOD GAS HEMOGLOBIN 12.1 g/dL (11.7-17.4); ARTERIAL BLOOD GAS O2 CAPACITY 17.2 mL/dl (16-24); ARTERIAL BLOOD GAS O2 CONTENT 17.3 ML/dl (15-23); ARTERIAL BLOOD GAS O2 SAT 100.4 % (95-98); ARTERIAL BLOOD GAS PCO2 33 mm/Hg (35-45); ARTERIAL BLOOD GAS PH 7.43 (7.35-7.45); ARTERIAL BLOOD GAS TCO2 22.9 mmol.L (22-28)
[2018-06-07] MEDS: Propofol 10 mg/ml 1,000 MG/100 ML VIAL IV PRN ×3 (00:10→18:22)
[2018-06-07] MEDS: Midazolam 100 mg/100ml in NS 100 MG/100 ML SOL IV PRN (00:11)
[2018-06-07 06:14] LABS: BASO # 0.01 K/mm3 (0.0-2.0); BASO % 0.1 % (0.0-3.0); EOS % 0.1 % (1.5-5.0); GRAN # 7.47 (1.4-6.5); GRAN % 76.3 % (50.0-68.0); HEMOGLOBIN 12.1 g/dL (14.0-18.0); LYMPH # 1.4 (1.2-3.4); LYMPH % 14.2 % (22.0-35.0); MEAN CELL VOLUME 96.8 fl (80.0-105.0); MEAN CORPUSCULAR HEMOGLOBIN 32.4 pg (25.0-35.0); MEAN CORPUSCULAR HGB CONC 33.5 g/dl (31.0-37.0); MEAN PLATELET VOLUME 10.6 fl (7.0-11.0); MONO # 0.9 (0.1-0.6); MONO % 9.3 % (1.0-6.0); RBC 3.73 10^6/uL (3.5-6.1); RED CELL DISTRIBUTION WIDTH 13.3 % (11.5-14.5); WHITE BLOOD COUNT 9.8 10^3/uL (4.5-11.0)
[2018-06-07 06:26] LABS: ALB/GLOB RATIO 1.3 (1.1-1.8); ALBUMIN 3.5 g/dL (3.0-4.8); ALT/SGPT 53 U/L (7-56); AST/SGOT 64 U/L (17-59); BLOOD UREA NITROGEN 10 mg/dL (7-21); CALCIUM 7.7 mg/dL (8.4-10.5); GFR NON-AFRICAN AMERICAN > 60
--- NOTE | 2018-06-07 09:07 | CARD ---
APPROVED REPORT Date of service: 06/06/2018 EKG Measurement Heart [id number] <Conclusion> Normal sinus rhythm Possible Left atrial enlargement ALMI, age unknown STTW changes Prolonged QTc
--- NOTE | 2018-06-07 10:06 | CP.PCM.PN ---
<AshleyDotsamuel Chavez - Last Filed: 06/07/18 16:11> Subjective - Date & Time of Evaluation Date of Evaluation: 06/07/18 Time of Evaluation: 10:06 - Subjective Subjective: Resident Progress Note for Hospitalist Service Patient examined at bedside. Patient is sedated and intubated, unable to follow commands. Patient is on propofol and versed drip. Patient was noted to have adin red blood in OG tube. Objective - Vital Signs/Intake and Output Vital Signs (last 24 hours): Temp Pulse Resp BP Pulse Ox 99.0 F 65 20 102/62 100 06/07/18 07:50 06/07/18 07:50 06/07/18 07:36 06/07/18 07:45 06/07/18 07:50 Intake and Output: 06/07/18 06/07/18 06:59 18:59 Intake Total 260 1200 Output Total 1000 Balance 260 200 - Medications Medications: Current Medications Acetaminophen (Tylenol 650 Mg Supp) 650 mg RC Q4H PRN PRN Reason: Fever >100.4 F Propofol (Diprivan) 1,000 mg in 100 mls @ 2.041 mls/hr IV .Q24H PRN; Protocol PRN Reason: TITRATE PER MD ORDER Last Titration: 06/07/18 07:00 Dose: 20 mcg/kg/min, 8.165 mls/hr Midazolam 100 mg/100ml in NS (Midazolam 100 Mg/100ml In Ns) 100 mg in 100 mls @ 5 mls/hr IV .Q20H PRN; Protocol PRN Reason: Agitation Last Titration: 06/07/18 07:00 Dose: 6 mg/hr, 6 mls/hr Sodium Chloride (Sodium Chloride 0.9%) 1,000 mls @ 100 mls/hr IV .Q10H JENN[facility]ER Lorazepam (Ativan) 4 mg IVP ONCE PRN; Protocol PRN Reason: prior to CT Last Admin: 06/06/18 23:36 Dose: 4 mg Pantoprazole Sodium (Protonix Inj) 40 mg IVP Q12 JENNIFER - Labs Labs: 06/07/18 05:30 06/07/18 05:30 PT 12.4 SECONDS (9.4-12.5) 06/06/18 13:00 INR 1.08 06/06/18 13:00 - Constitutional Appears: No Acute Distress, Agitated - Head Exam Head Exam: ATRAUMATIC, NORMOCEPHALIC - Eye Exam Eye Exam: Normal appearance. absent: Scleral icterus - ENT Exam ENT Exam: Mucous Membranes Moist Additional comments: OG tube and ett in place - Respiratory Exam Respiratory Exam: Clear to Ausculation Bilateral, NORMAL BREATHING PATTERN. absent: Wheezes, Respiratory Distress - Cardiovascular Exam Cardiovascular Exam: REGULAR RHYTHM, +S1, +S2. absent: Murmur - GI/Abdominal Exam GI & Abdominal Exam: Soft, Hypoactive Bowel Sounds. absent: Distended, Firm, Guarding, Rigid - Exam Additional comments: lee in place with pink urine - Extremities Exam Extremities Exam: Normal Capillary Refill. absent: Pedal Edema - Neurological Exam Neurological Exam: Altered - Skin Skin Exam: Dry, Intact Assessment and Plan - Assessment and Plan (Free Text) Assessment: 42 year old male with a past medical history of cannabis hyperemesis syndrome who came in s/p cardiac arrest and obtained ROSC with CPR and defibrillation, now admitted to ICU for management of respiratory failure and metabolic aci dosis. Plan: Cardiac arrest - s/p intubation - troponins trending down - ICU and cardiology consulted. - Contacted on-call ([facility]) given EKG showed some ST elevation in V4-V6; agreed that EKG findings most likely represent pseudoinfarct, pattern seen in the setting of cannabinoid ingestion, acidosis, and electrolyte abnormalities - Cardiology consulted. Seizures - UDS positive for cannabinoids, negative for salicylates/acetaminophen/alcohol - CT head shows no acute intracranial abnormalities - followup VEEG - Neurology consulted. Appreciate recs. - Propofol and Versed ggt GI bleed - coffee grounds noted in OG tube - Hgb stable - monitor and transfuse as needed - GI consulted. Appreciate recs. Metabolic acidosis - resolved - D5W 1/2 NS with 80 mEq of bicarbonate at 150 mls/hr PPX - SCDs - DVT ppx contraindicated due to bleeding Case discussed with attending physician, Dr. Cullen Ramirez PGY-1 <Yoko Berman - Last Filed: 06/08/18 07:36> Objective - Vital Signs/Intake and Output Vital Signs (last 24 hours): Temp Pulse Resp BP Pulse Ox 98.6 F 65 15 124/70 100 06/08/18 04:23 06/08/18 04:23 06/08/18 04:23 06/08/18 04:15 06/08/18 04:23 Intake and Output: 06/08/18 06/08/18 06:59 18:59 Intake Total 1600 Output Total 800 Balance 800 - Medications Medications: Current Medications Acetaminophen (Tylenol 650 Mg Supp) 650 mg RC Q4H PRN PRN Reason: Fever >100.4 F Propofol (Diprivan) 1,000 mg in 100 mls @ 2.041 mls/hr IV .Q24H PRN; Protocol PRN Reason: TITRATE PER MD ORDER Last Admin: 06/08/18 07:04 Dose: 30 mcg/kg/min, 12.247 mls/hr Midazolam 100 mg/100ml in NS (Midazolam 100 Mg/100ml In Ns) 100 mg in 100 mls @ 5 mls/hr IV .Q20H PRN; Protocol PRN Reason: Agitation Last Titration: 06/07/18 07:00 Dose: 6 mg/hr, 6 mls/hr Sodium Chloride (Sodium Chloride 0.9%) 1,000 mls @ 100 mls/hr IV .Q10H JENNIFER Last Admin: 06/08/18 07:05 Dose: 100 mls/hr Levetiracetam (Keppra 500mg Ivpb) 500 mg in 100 mls @ 460 mls/hr IV Q12 JENNIFER Last Admin: 06/07/18 22:03 Dose: 460 mls/hr Acetaminophen (Ofirmev) 1,000 mg in 100 mls @ 400 mls/hr IVPB Q6H PRN PRN Reason: Temperature Stop: 06/09/18 19:54 Last Admin: 06/07/18 22:04 Dose: 400 mls/hr Lorazepam (Ativan) 4 mg IVP ONCE PRN; Protocol PRN Reason: prior to CT Last Admin: 06/06/18 23:36 Dose: 4 mg Pantoprazole Sodium (Protonix Inj) 40 mg IVP Q12 JENNIFER Last Admin: 06/07/18 22:10 Dose: 40 mg - Labs Labs: 06/08/18 05:30 06/08/18 05:30 PT 12.4 SECONDS (9.4-12.5) 06/06/18 13:00 INR 1.08 06/06/18 13:00 Attending/Attestation - Attestation I have personally seen and examined this patient.: Yes I have fully participated in the care of the patient.: Yes I have reviewed all pertinent clinical information, including history, physical exam and plan: Yes Notes (Text): 06/07/18 42 year old male with past medical history of cannabis use who presented s/p cardiac arrest. Obtained ROSC with CPR and defibrillation for vtach on the field. In the ER he was intubated for airway protection and agonal breathing. He was found to have seizures and started on keppra, versed and proprofol. CT head was negative. EEG is pending. Neurology is following. EKG showed some ST changes in anterolateral leads. Initial troponin was neg ative however repeat troponins were 0.69 and 0.42. EKGs were reviewed with code heart ball assembler who recommended to correct electrolytes and acidosis. Started on iv bicarb and potassium supplementation with improvement of acidosis and hypokalemia. Cardiology evaluation was appreciated. Echocardiogram is pending. Patient is not on aspirin secondary to coffee ground emesis from OGT. He is on protonix and GI is pending. Yoko Berman MD Hospitalist.
--- NOTE | 2018-06-07 10:55 | PN ---
INVESTMENT SPECIALIST NOTE DATE: 06/07/2018 SUBJECTIVE: The patient is sedated on the ventilator with FIO2 of 60%. He is getting Diprivan as well as Versed. Noted that he has a OG tube placed this morning, it is noted that he had a small amount of coffee grounds come from the tube most likely secondary to stress ulcers and GI consult has been called. The patient is hemodynamically stable at this time. PHYSICAL EXAMINATION: VITAL SIGNS: His temperature is 99, his pulse is 65, respirations are 20 and BP is 102/62. SKIN: Warm and dry. HEENT: Head atraumatic and normocephalic. Eyes reactive to light. Ear, nose and throat seemed to be within normal limits. NECK: Supple. No JVD. No thyroid enlargement or lymph nodes. HEART: Has regular rate and rhythm. Normal S1 and S2. LUNGS: Reveal rare rhonchi at the bases. ABDOMEN: Soft. Decreased bowel sounds. GENITALIA: Deferred. RECTAL: Deferred. MUSCULOSKELETAL: No joint deformities. EXTREMITIES: Reveal no edema. NEUROLOGIC: He is sedated on the ventilator. LABORATORY DATA: The patient's white count is 9.8, hemoglobin is 12.1, hematocrit 36.1 with platelets of 184,000. Noted that his arterial blood gas is pH of 7.43, pCO2 of 33 and pO2 of 260. The sodium is 141, potassium 4.0, chloride 111, CO2 of 24 with a BUN of 10, creatinine of 0.8 and a glucose of 102. The patient had increased troponin. Chest x-ray is pending. IMPRESSION: This patient is post cardiac arrest with cardiopulmonary resuscitation and cardiac arrhythmia. He has respiratory failure requiring ventilator support and episodes of seizure activity. The patient is status post metabolic acidosis and drug tox revealed cannabinoid use. PLAN: We will continue with Versed and Diprivan and GI was consulted for the GI bleed. The patient continues to require ventilator support and we will decrease FIO2 as tolerated. We will follow his chest x-ray and arterial blood gas closely. We will continue to treat aggressively along with the other consultants and the primary care doctor. Carmelo Swanson MD
--- NOTE | 2018-06-07 11:11 | CARD ---
APPROVED REPORT Date of service: 06/06/2018 EKG Measurement Heart [id number] ID [id number] <Conclusion> Normal sinus rhythm Possible Left atrial enlargement ALMI, age unknown STTW changes Prolonged QTc
[2018-06-07] MEDS: Sodium Chloride 0.9% 1,000 ML IV SCH ×2 (11:37→18:23)
--- NOTE | 2018-06-07 12:15 | CT ---
Date of service: 06/06/2018 PROCEDURE: CT HEAD WITHOUT CONTRAST. HISTORY: possible seizure COMPARISON: None available. TECHNIQUE: Axial computed tomography images were obtained through the head/brain without intravenous contrast. Supplemental Coronal and Sagittal projections created and reviewed. Radiation dose: Total exam DLP = 1063.67 mGy-cm. This CT exam was performed using one or more of the following dose reduction techniques: Automated exposure control, adjustment of the mA and/or kV according to patient size, and/or use of iterative reconstruction technique. FINDINGS: HEMORRHAGE: No intracranial hemorrhage. BRAIN: No mass effect or edema. No atrophy or chronic microvascular ischemic changes. VENTRICLES: Unremarkable. No hydrocephalus. CALVARIUM: Unremarkable. PARANASAL SINUSES: Unremarkable as visualized. No significant inflammatory changes. MASTOID AIR CELLS: Unremarkable as visualized. No inflammatory changes. OTHER FINDINGS: None. IMPRESSION: No acute intracranial abnormalities. No significant findings to account for the clinical presentation. Concordant results (preliminary interpretation) provided by [employer]. Procedure Completed: 22:19. Preliminary Report: Dictated and Authenticated: 22:50. Final Interpretation: 12:11. June 07, 2018
[2018-06-07] MEDS ORDERED: levETIRAcetam 500 MG in Sodium Chloride 0.9% 100 ML IV STA ×2 (12:56→13:48)
[2018-06-07 13:03] LABS: BASO # 0.01 K/mm3 (0.0-2.0); BASO % 0.1 % (0.0-3.0); EOS % 0.2 % (1.5-5.0); GRAN # 10.12 (1.4-6.5); GRAN % 80.2 % (50.0-68.0); HEMOGLOBIN 12.6 g/dL (14.0-18.0); LYMPH # 1.5 (1.2-3.4); LYMPH % 11.7 % (22.0-35.0); MEAN CELL VOLUME 97.6 fl (80.0-105.0); MEAN CORPUSCULAR HEMOGLOBIN 33.1 pg (25.0-35.0); MEAN CORPUSCULAR HGB CONC 33.9 g/dl (31.0-37.0); MEAN PLATELET VOLUME 9.5 fl (7.0-11.0); MONO % 7.8 % (1.0-6.0); RBC 3.81 10^6/uL (3.5-6.1); RED CELL DISTRIBUTION WIDTH 13.3 % (11.5-14.5); WHITE BLOOD COUNT 12.6 10^3/uL (4.5-11.0)
--- NOTE | 2018-06-07 15:26 | CP.PCM.PN ---
Subjective - Date & Time of Evaluation Date of Evaluation: 06/07/18 Time of Evaluation: 11:00 - Subjective Subjective: Patient seen and examined at bedside intubated and sedated on diprivan and versed. As per nursing, patient was pulling at his endotracheal tube and lee. ROS not obtained due to patient being sedated. Objective - Vital Signs/Intake and Output Vital Signs (last 24 hours): Temp Pulse Resp BP Pulse Ox 99.3 F 71 32 H 114/68 99 06/07/18 14:50 06/07/18 14:50 06/07/18 12:32 06/07/18 14:45 06/07/18 14:50 Intake and Output: 06/07/18 06/07/18 06:59 18:59 Intake Total 260 1300 Output Total 1000 Balance 260 300 - Medications Medications: Current Medications Acetaminophen (Tylenol 650 Mg Supp) 650 mg RC Q4H PRN PRN Reason: Fever >100.4 F Propofol (Diprivan) 1,000 mg in 100 mls @ 2.041 mls/hr IV .Q24H PRN; Protocol PRN Reason: TITRATE PER MD ORDER Last Admin: 06/07/18 09:51 Dose: 20 mcg/kg/min, 8.165 mls/hr Midazolam 100 mg/100ml in NS (Midazolam 100 Mg/100ml In Ns) 100 mg in 100 mls @ 5 mls/hr IV .Q20H PRN; Protocol PRN Reason: Agitation Last Titration: 06/07/18 07:00 Dose: 6 mg/hr, 6 mls/hr Sodium Chloride (Sodium Chloride 0.9%) 1,000 mls @ 100 mls/hr IV .Q10H JENNIFER Last Admin: 06/07/18 11:37 Dose: 100 mls/hr Lorazepam (Ativan) 4 mg IVP ONCE PRN; Protocol PRN Reason: prior to CT Last Admin: 06/06/18 23:36 Dose: 4 mg Pantoprazole Sodium (Protonix Inj) 40 mg IVP Q12 JENNIFER Last Admin: 06/07/18 11:36 Dose: 40 mg - Labs Labs: 06/07/18 12:50 06/07/18 05:30 PT 12.4 SECONDS (9.4-12.5) 06/06/18 13:00 INR 1.08 06/06/18 13:00 - Head Exam Head Exam: ATRAUMATIC, NORMAL INSPECTION, NORMOCEPHALIC - Eye Exam Additional comments: pupils no longer as dilated as yesterday, responsive to light - ENT Exam ENT Exam: Mucous Membranes Moist - Respiratory Exam Respiratory Exam: absent: Clear to Ausculation Bilateral, NORMAL BREATHING PATTERN - Cardiovascular Exam Cardiovascular Exam: REGULAR RHYTHM, +S1, +S2 - GI/Abdominal Exam GI & Abdominal Exam: Soft - Neurological Exam Additional comments: not obtained as patient is intubated and sedated - Skin Skin Exam: Normal Color, Warm Assessment and Plan - Assessment and Plan (Free Text) Assessment: Status epilepticus -Continue Keppra 500 BID -VEEG monitoring to evaluate for status since the patient's symptoms are atypical -CT head reveals no acute intracranial abnormalities -MRI brain once patient is stable -Will be able to better assess once patient is off sedation and extubated
[2018-06-07 18:09] LABS: BASO # 0.01 K/mm3 (0.0-2.0); BASO % 0.1 % (0.0-3.0); EOS % 0.1 % (1.5-5.0); GRAN # 11.21 (1.4-6.5); GRAN % 80.9 % (50.0-68.0); HEMOGLOBIN 12.4 g/dL (14.0-18.0); LYMPH # 1.6 (1.2-3.4); LYMPH % 11.3 % (22.0-35.0); MEAN CELL VOLUME 97.4 fl (80.0-105.0); MEAN CORPUSCULAR HEMOGLOBIN 32.6 pg (25.0-35.0); MEAN CORPUSCULAR HGB CONC 33.5 g/dl (31.0-37.0); MEAN PLATELET VOLUME 9.4 fl (7.0-11.0); MONO # 1.1 (0.1-0.6); MONO % 7.6 % (1.0-6.0); RBC 3.8 10^6/uL (3.5-6.1); RED CELL DISTRIBUTION WIDTH 13.4 % (11.5-14.5); WHITE BLOOD COUNT 13.8 10^3/uL (4.5-11.0)
--- NOTE | 2018-06-07 21:39 | CON ---
DATE: 06/07/2018 CARDIOLOGY CONSULT REASON FOR CONSULTATION: Cardiac arrest. The history was obtained from the patient's father at the bedside. HISTORY OF PRESENT ILLNESS: The patient is a 42-year-old male who has no significant cardiac history, but he has a strong family history of coronary artery disease. His mother had stent in her mid 40s. The patient has a history of migraine and according to the son, he had a history of abdominal seizures for which he took no medications. The clinical syndrome described by the father as episodic abdominal cramps and nausea and vomiting. The patient arrived from yesterday and he was reporting after arrival that he is feeling short of breath and palpitation. Following that, the patient did not answer, was found by the father on the floor, unresponsive and . The patient initiated CPR with the help of a neighboring physician who did [id number] breathing. In few minutes, EMS arrived and the patient required a defibrillation. According to the father, the patient required intubation in the ambulance and required another resuscitation in the ambulance itself. The patient received 2 doses of Narcan and the patient continues to have seizures in the emergency room and in the ICU. The case was discussed with a "heart on-call" lamina searcher who did not consider the patient a suitable candidate for emergency cardiac catheterization. There is no reported ventricular tachycardia since the patient's presentation to the ICU. SOCIAL HISTORY: The patient is a smoker. He is a marijuana abuser. He lives with his girlfriend. MEDICATIONS: The patient is on Ativan 4 mg intravenously p.r.n., Diprivan infusion, midazolam drip, Protonix 40 mg intravenously every 12 hours, and normal saline 100 mL an hour. PHYSICAL EXAMINATION: GENERAL: The patient is a middle-aged male who is sedated, on a ventilator. VITAL SIGNS: Blood pressure 102/62, heart rate 65, temperature 99, respirations 32. HEENT: Normocephalic. CHEST: Clear. HEART: S1 and S2 regular. EXTREMITIES: No edema. LABORATORY DATA: The EKG on admission revealed sinus tachycardia at a rate of 126; consider recent anterolateral versus acute anterolateral OR. Subsequent EKG revealed sinus rhythm, LVH, heart rate is 73 with recent anterolateral OR. Chest x-ray was remarkable except for mild cardiomegaly and prominent bronchovascular markings. Head CT scan, no acute intracranial abnormality. Today's hemoglobin and hematocrit 12.6 and 37.2, white count 12.6, platelet count 157,000. Today's SMA-7 is within normal limits except for chloride of 111. Calcium is 7.7. Troponin, first one was negative, second one 0.69, third one 0.42. ASSESSMENT: 1. Status post cardiac arrest. 2. Status epilepticus. 3. Borderline troponin elevation. 4. Evidence of recent anterolateral infarct on EKG. 5. Mild hypokalemia on presentation. 6. Cannabinoid abuse. RECOMMENDATIONS: The patient's case was discussed with the medical team. Aspirin on hold because of bleeding noted from the nasogastric tube. Continue current IV midazolam and p.r.n. IV Ativan. Obtain a bedside echocardiographic study tomorrow. Boyd Hernandez MD
[2018-06-07] MEDS: levETIRAcetam 500mg IVPB 500 MG/100 ML BAG IV SCH (22:03)
[2018-06-08] MEDS ORDERED: levETIRAcetam 500 MG in Sodium Chloride 0.9% 100 ML IV SCH (01:00)
[2018-06-08 01:19] LABS: BASO # 0.01 K/mm3 (0.0-2.0); BASO % 0.1 % (0.0-3.0); EOS % 0.1 % (1.5-5.0); GRAN # 11.09 (1.4-6.5); GRAN % 77.7 % (50.0-68.0); HEMOGLOBIN 12.3 g/dL (14.0-18.0); MEAN CELL VOLUME 98.2 fl (80.0-105.0); MEAN CORPUSCULAR HEMOGLOBIN 32.5 pg (25.0-35.0); MEAN CORPUSCULAR HGB CONC 33.1 g/dl (31.0-37.0); MEAN PLATELET VOLUME 10.1 fl (7.0-11.0); MONO # 1.2 (0.1-0.6); MONO % 8.1 % (1.0-6.0); RBC 3.79 10^6/uL (3.5-6.1); RED CELL DISTRIBUTION WIDTH 13.5 % (11.5-14.5); WHITE BLOOD COUNT 14.3 10^3/uL (4.5-11.0)
[2018-06-08 06:35] LABS: BASO # 0.01 K/mm3 (0.0-2.0); BASO % 0.1 % (0.0-3.0); EOS % 0.1 % (1.5-5.0); GRAN # 11.57 (1.4-6.5); GRAN % 79.5 % (50.0-68.0); HEMOGLOBIN 13.5 g/dL (14.0-18.0); LYMPH # 1.6 (1.2-3.4); LYMPH % 10.7 % (22.0-35.0); MEAN CELL VOLUME 98.8 fl (80.0-105.0); MEAN CORPUSCULAR HEMOGLOBIN 32.5 pg (25.0-35.0); MEAN CORPUSCULAR HGB CONC 32.8 g/dl (31.0-37.0); MEAN PLATELET VOLUME 9.9 fl (7.0-11.0); MONO # 1.4 (0.1-0.6); MONO % 9.6 % (1.0-6.0); RBC 4.16 10^6/uL (3.5-6.1); RED CELL DISTRIBUTION WIDTH 13.5 % (11.5-14.5); WHITE BLOOD COUNT 14.6 10^3/uL (4.5-11.0)
--- NOTE | 2018-06-08 06:44 | CP.PCM.PN ---
<Rhina Ramirez - Last Filed: 06/08/18 14:40> Subjective - Date & Time of Evaluation Date of Evaluation: 06/08/18 Time of Evaluation: 06:43 - Subjective Subjective: Resident Progress Note for Hospitalist Service Patient examined at bedside. No acute events overnight. Patient is intubated and sedated but moves all extremities. Unable to provide history. Objective - Vital Signs/Intake and Output Vital Signs (last 24 hours): Temp Pulse Resp BP Pulse Ox 98.6 F 65 15 124/70 100 06/08/18 04:23 06/08/18 04:23 06/08/18 04:23 06/08/18 04:15 06/08/18 04:23 Intake and Output: 06/07/18 06/08/18 18:59 06:59 Intake Total 2750 1500 Output Total 2075 800 Balance 675 700 - Medications Medications: Current Medications Acetaminophen (Tylenol 650 Mg Supp) 650 mg RC Q4H PRN PRN Reason: Fever >100.4 F Propofol (Diprivan) 1,000 mg in 100 mls @ 2.041 mls/hr IV .Q24H PRN; Protocol PRN Reason: TITRATE PER MD ORDER Last Admin: 06/07/18 18:22 Dose: 30 mcg/kg/min, 12.247 mls/hr Midazolam 100 mg/100ml in NS (Midazolam 100 Mg/100ml In Ns) 100 mg in 100 mls @ 5 mls/hr IV .Q20H PRN; Protocol PRN Reason: Agitation Last Titration: 06/07/18 07:00 Dose: 6 mg/hr, 6 mls/hr Sodium Chloride (Sodium Chloride 0.9%) 1,000 mls @ 100 mls/hr IV .Q10H JENNIFER Last Admin: 06/07/18 18:23 Dose: 100 mls/hr Levetiracetam (Keppra 500mg Ivpb) 500 mg in 100 mls @ 460 mls/hr IV Q12 JENNIFER Last Admin: 06/07/18 22:03 Dose: 460 mls/hr Acetaminophen (Ofirmev) 1,000 mg in 100 mls @ 400 mls/hr IVPB Q6H PRN PRN Reason: Temperature Stop: 06/09/18 19:54 Last Admin: 06/07/18 22:04 Dose: 400 mls/hr Lorazepam (Ativan) 4 mg IVP ONCE PRN; Protocol PRN Reason: prior to CT Last Admin: 06/06/18 23:36 Dose: 4 mg Pantoprazole Sodium (Protonix Inj) 40 mg IVP Q12 JENNIFER Last Admin: 06/07/18 22:10 Dose: 40 mg - Labs Labs: 06/08/18 00:30 06/07/18 05:30 PT 12.4 SECONDS (9.4-12.5) 06/06/18 13:00 INR 1.08 06/06/18 13:00 - Additional Findings Additional findings: - Constitutional Appears: No Acute Distress, Agitated - Head Exam Head Exam: ATRAUMATIC, NORMOCEPHALIC - Eye Exam Eye Exam: Normal appearance. absent: Scleral icterus - ENT Exam ENT Exam: Mucous Membranes Moist Additional comments: OG tube with dark bloody output ett in place - Respiratory Exam Respiratory Exam: Clear to Ausculation Bilateral, NORMAL BREATHING PATTERN. absent: Wheezes, Respiratory Distress - Cardiovascular Exam Cardiovascular Exam: REGULAR RHYTHM, +S1, +S2. absent: Murmur - GI/Abdominal Exam GI & Abdominal Exam: Soft, Hypoactive Bowel Sounds. absent: Distended, Firm, Guarding, Rigid - Exam Additional comments: lee in place with pink urine - Extremities Exam Extremities Exam: Normal Capillary Refill. absent: Pedal Edema - Neurological Exam Neurological Exam: Altered - Skin Skin Exam: Dry, Intact Assessment and Plan - Assessment and Plan (Free Text) Assessment: 42 year old male with a past medical history of cannabis hyperemesis syndrome who came in s/p cardiac arrest and obtained ROSC with CPR and defibrillation, now admitted to ICU for management of respiratory failure and metabolic acidosis. Plan: Cardiac arrest - s/p intubation - EKG shows recent anterolateral M.I. - ECHO shows EF 26%, akinetic apex, mild TR, mild/mod pulm HTN - ICU and cardiology consulted. - Cardiology consulted. - Losartan 12.5 mg PO daily Seizures - UDS positive for cannabinoids, negative for salicylates/acetaminophen/alcohol - CT head shows no acute intracranial abnormalities - VEEG shows rae matter dysfunction, findings do not suggest a specific etiology - Neurology consulted. Appreciate recs. - Propofol and Versed ggt - Keppra 500 mg IV Q12H GI bleed - coffee grounds noted in OG tube - Hgb stable - monitor and transfuse as needed - hold aspirin - GI consulted. Appreciate recs. - Protonix 40 mg IV Q12 - NS @ 100 ccs/hr Metabolic acidosis - resolved - bicarb drip discontinued PPX - SCDs - Protonix Case discussed with Dr. Cullen Ramirez PGY-1 <Yoko Berman - Last Filed: 06/08/18 18:13> Objective - Vital Signs/Intake and Output Vital Signs (last 24 hours): Temp Pulse Resp BP Pulse Ox 99.9 F H 72 28 H 119/68 100 06/08/18 17:10 06/08/18 17:10 06/08/18 14:03 06/08/18 17:00 06/08/18 17:10 Intake and Output: 06/08/18 06/08/18 06:59 18:59 Intake Total 1700 100 Output Total 800 Balance 900 100 - Medications Medications: Current Medications Acetaminophen (Tylenol 650 Mg Supp) 650 mg RC Q4H PRN PRN Reason: Fever >100.4 F Last Admin: 06/08/18 16:39 Dose: 650 mg Carvedilol (Coreg) 3.125 mg PO BID JENNIFER Last Admin: 06/08/18 16:36 Dose: 3.125 mg Propofol (Diprivan) 1,000 mg in 100 mls @ 2.041 mls/hr IV .Q24H PRN; Protocol PRN Reason: TITRATE PER MD ORDER Last Admin: 06/08/18 14:05 Dose: 30 mcg/kg/min, 12.247 mls/hr Midazolam 100 mg/100ml in NS (Midazolam 100 Mg/100ml In Ns) 100 mg in 100 mls @ 5 mls/hr IV .Q20H PRN; Protocol PRN Reason: Agitation Last Admin: 06/08/18 09:53 Dose: 6 mg/hr, 6 mls/hr Sodium Chloride (Sodium Chloride 0.9%) 1,000 mls @ 100 mls/hr IV .Q10H JENNIFER Last Admin: 06/08/18 11:03 Dose: 100 mls/hr Levetiracetam (Keppra 500mg Ivpb) 500 mg in 100 mls @ 460 mls/hr IV Q12 JENNIFER Last Admin: 06/08/18 09:46 Dose: 460 mls/hr Acetaminophen (Ofirmev) 1,000 mg in 100 mls @ 400 mls/hr IVPB Q6H PRN PRN Reason: Temperature Stop: 06/09/18 19:54 Last Admin: 06/07/18 22:04 Dose: 400 mls/hr Lorazepam (Ativan) 4 mg IVP ONCE PRN; Protocol PRN Reason: prior to CT Last Admin: 06/06/18 23:36 Dose: 4 mg Losartan Potassium (Cozaar) 12.5 mg PO DAILY [facility] Last Admin: 06/08/18 16:37 Dose: 12.5 mg Pantoprazole Sodium (Protonix Inj) 40 mg IVP Q12 [facility] Last Admin: 06/08/18 11:02 Dose: 40 mg Thiamine HCl (Vitamin B1 Tab) 100 mg NG DAILY [facility] Last Admin: 06/08/18 16:38 Dose: 100 mg - Labs Labs: 06/08/18 05:30 06/08/18 05:30 PT 12.4 SECONDS (9.4-12.5) 06/06/18 13:00 INR 1.08 06/06/18 13:00 Attending/Attestation - Attestation I have personally seen and examined this patient.: Yes I have fully participated in the care of the patient.: Yes I have reviewed all pertinent clinical information, including history, physical exam and plan: Yes Notes (Text): 06/08/18 18:10 42 year old male with past medical history of cannabis use who presented s/p cardiac arrest. Obtained ROSC with CPR and defibrillation for vtach on the field. In the ER he was intubated for airway protection and agonal breathing. He was found to have seizures and started on keppra, versed and proprofol. CT head was negative. VEEG was reviewed as above. Neurology is following. EKG showed some ST changes in anterolateral leads. Initial troponin was negative however repeat troponins were 0.69 and 0.42. EKGs were reviewed with code heart burlap bag sewer who recommended to correct electrolytes and acidosis. Started on iv bicarb and potassium supplementation with improvement of acidosis and hypokalemia. Cardiology evaluation was appreciated. Echocardiogram was reviewed as above. Patient is started on coreg and cozaar. Patient is not on aspirin secondary to coffee ground emesis from OGT. Consider cardiac cath as per cardiology once cleared by neurology/pulmonary. He is on protonix and GI was appreciated. Yoko Berman MD Hospitalist.
[2018-06-08 06:49] LABS: ALB/GLOB RATIO 1.3 (1.1-1.8); ALBUMIN 3.7 g/dL (3.0-4.8); ALT/SGPT 46 U/L (7-56); AST/SGOT 68 U/L (17-59); BLOOD UREA NITROGEN 9 mg/dL (7-21); CALCIUM 8.4 mg/dL (8.4-10.5); GFR NON-AFRICAN AMERICAN > 60
--- NOTE | 2018-06-08 06:50 | CP.CCUPN ---
<Tani Mesa - Last Filed: 06/08/18 12:54> CCU Subjective - Physician Review Subjective (Free Text): Tani Mesa Internal Medicine Resident- Progress Note on Behalf of Critical Care Team Subjective: Patient seen and examined at bedside. No acute events. Further subjective data cannot be ascertained at this time. 12 point ROS cannot be ascertained at this time due to altered mental status Physical Examination: - Constitutional Appears: Well, No Acute Distress - Head Exam Head Exam: ATRAUMATIC, NORMAL INSPECTION, NORMOCEPHALIC - Eye Exam Eye Exam: sluggish pupillary response to light - ENT Exam ENT Exam: Mucous Membranes Dry, OG tube and ett in place - Neck Exam Neck exam: Positive for: Normal Inspection - Respiratory Exam Respiratory Exam: Clear to Auscultation Bilateral, NORMAL BREATHING PATTERN - Cardiovascular Exam Cardiovascular Exam: REGULAR RHYTHM, +S1, +S2. absent: Gallop, JVD, Rubs - GI/Abdominal Exam GI & Abdominal Exam: Normal Bowel Sounds, Soft. absent: Tenderness - Neurological Exam Neurological exam: Altered mental status, GCS 3T - Psychiatric Exam Psychiatric exam: Normal Affect, Normal Mood - Skin Skin Exam: Dry, Intact, Normal Color, Warm Assessment and Plan: Patient is a 42 year old male with a past medical history of cannabis hyperemesis syndrome who came in s/p cardiac arrest and obtained ROSC with CPR and defibrillation. Patient is admitted to ICU for management of respiratory failure on vent. Neuro Acute encephalopathy,AMS - rule out metabolic vs. toxic - 06/06/2018 CT Head without contrast No acute intracranial abnormalities - 06/08/2018 CT head without contrast- ordered and pending - GCS3T Seizures - continue on keppra 500mg IV q12 - continue on versed drip 5mcg/hr & propofol @ 5mcg/kg/min - neurology consulted- appreciate recommendation, follow up video EEG - UDS positive for cannabinoids Cardiovascular: Cardiac Arrest s/p ROSC - troponins trending down - 06/08/2018 echocardiogram- LVEF 26%, LV moderately dilated, akinetic apex - hold aspirin due to GI bleed - consider starting patient on statin once CPK normalizes - cardiology consulted (Dr. Velasco)- appreciate recommendation- will need AC upon GI hemorrhage resolution Hyperlipidemia - elevated LDL and TAG - consider starting patient on statin - hold aspirin secondary to GI bleed Resp: Respiratory Failure s/p Cardiac Arrest, Seizure - intubated - continue PRVC TV400 RR12 [id number] [id number] - weaning trial and sedation trial daily GI GI Hemorrhage - ddx- j carlos keith tear during seizure episode - NPO - continue protonix 40mg IV q12 - continue IVF NS @ 100cc/hr - GI consulted (Dr. Minor)- appreciate recommendations Heme Anemia - normocytic - stable 13.5 DVT Ppx - SCD Patient case discussed with and plan approved by attending physician, Dr. Hampton. CCU Objective - Vital Signs / Intake & Output Vital Signs (Last 4 hours): Vital Signs Temp Pulse Resp BP Pulse Ox 06/08/18 04:23 98.6 F 65 15 100 06/08/18 04:22 98.6 F 65 23 100 06/08/18 04:21 98.6 F 68 28 H 100 06/08/18 04:20 98.6 F 75 29 H 100 06/08/18 04:19 98.6 F 76 28 H 100 06/08/18 04:18 98.4 F 73 28 H 100 06/08/18 04:17 98.4 F 71 19 100 06/08/18 04:16 98.4 F 84 24 100 06/08/18 04:15 124/70 06/08/18 04:14 98.4 F 68 28 H 100 06/08/18 04:13 98.4 F 66 21 99 06/08/18 04:12 98.4 F 67 17 99 06/08/18 04:11 98.4 F 67 24 99 06/08/18 04:10 98.4 F 68 20 99 06/08/18 04:09 98.4 F 68 18 99 06/08/18 04:08 98.4 F 68 22 100 06/08/18 04:07 98.4 F 69 23 100 06/08/18 04:06 98.4 F 73 25 H 100 06/08/18 04:05 98.4 F 69 27 H 100 06/08/18 04:04 98.4 F 57 L 27 H 100 06/08/18 04:03 98.2 F 62 28 H 100 06/08/18 04:02 98.2 F 84 39 H 99 06/08/18 04:01 98.2 F 85 28 H 100 06/08/18 04:00 126/87 06/08/18 03:59 98.2 F 68 16 100 06/08/18 03:58 98.2 F 68 17 100 06/08/18 03:57 98.2 F 89 24 100 06/08/18 03:56 98.2 F 74 15 100 06/08/18 03:55 98.2 F 61 24 100 06/08/18 03:54 98.2 F 64 26 H 100 06/08/18 03:53 98.2 F 69 26 H 100 06/08/18 03:52 98.1 F 79 18 100 06/08/18 03:51 98.1 F 82 20 100 06/08/18 03:50 98.1 F 76 21 100 06/08/18 03:49 98.1 F 75 17 100 06/08/18 03:48 98.1 F 67 21 100 06/08/18 03:47 98.1 F 75 18 100 06/08/18 03:46 98.2 F 69 23 100 06/08/18 03:45 131/74 06/08/18 03:44 98.2 F 63 21 100 06/08/18 03:43 98.1 F 72 21 100 06/08/18 03:42 98.1 F 70 21 100 06/08/18 03:41 98.2 F 68 22 100 06/08/18 03:40 98.2 F 67 21 100 06/08/18 03:39 98.1 F 69 21 100 06/08/18 03:38 98.1 F 62 15 100 06/08/18 03:37 98.1 F 63 22 100 Intake and Output (Last 8hrs): Intake & Output 06/07/18 06/07/18 06/08/18 14:59 22:59 06:59 Intake Total 1300 1450 1500 Output Total 1000 1075 800 Balance 300 375 700 Weight 137 lb 12.8 oz Intake: IV 1300 1450 1500 Left Forearm 1000 10 Right Forearm 1200 1400 Right Hand 200 140 100 Oral 0 0 0 Output: Gastric Amount 200 Stomach 200 Urine 1000 775 600 Urethral ([place]) 1000 775 600 Other 300 Other: # Bowel Movements 0 0 - Medications Active Medications: Active Medications Generic Name Dose Route Start Last Admin Trade Name Freq PRN Reason Stop Dose Admin Acetaminophen 650 mg 06/06/18 17:21 Tylenol 650 Mg Supp RC Q4H PRN Fever >100.4 F Propofol 1,000 mg in 100 mls @ 2.041 mls/hr 06/06/18 13:44 06/07/18 18:22 Diprivan IV 30 mcg/kg/min .Q24H PRN 12.247 mls/hr TITRATE PER MD ORDER Administration Protocol 5 MCG/KG/MIN Midazolam 100 mg/100ml in NS 100 mg in 100 mls @ 5 mls/hr 06/06/18 14:34 06/07/18 07:00 Midazolam 100 Mg/100ml In Ns IV 6 mg/hr .Q20H PRN 6 mls/hr Agitation Titration Protocol 5 MG/HR Sodium Chloride 1,000 mls @ 100 mls/hr 06/07/18 04:30 06/07/18 18:23 Sodium Chloride 0.9% IV 100 mls/hr .Q10H JENNIFER Administration Levetiracetam 500 mg in 100 mls @ 460 mls/hr 06/07/18 22:00 06/07/18 22:03 Keppra 500mg Ivpb IV 460 mls/hr Q12 JENNIFER Administration Acetaminophen 1,000 mg in 100 mls @ 400 mls/hr 06/07/18 19:53 06/07/18 22:04 Ofirmev IVPB 06/09/18 19:54 400 mls/hr Q6H PRN Administration Temperature Lorazepam 4 mg 06/06/18 19:33 06/06/18 23:36 Ativan IVP 4 mg ONCE PRN Administration prior to CT Protocol Pantoprazole Sodium 40 mg 06/07/18 10:00 06/07/18 22:10 Protonix Inj IVP 40 mg Q12 JENNIFER Administration - Patient Studies Lab Studies: Microbiology Studies 06/06/18 16:00 MRSA Culture (Admit) - Final Naris MRSA NOT DETECTED 06/06/18 17:45 Blood Culture - Preliminary Blood NO GROWTH AFTER 24 HOURS 06/06/18 17:30 Blood Culture - Preliminary Blood NO GROWTH AFTER 24 HOURS 06/06/18 18:50 Gram Stain - Final Trachasp Lab Studies 06/08/18 06/08/18 06/08/18 Range/Units 05:30 05:30 00:30 WBC 14.6 H 14.3 H (4.5-11.0) 10^3/uL RBC 4.16 3.79 (3.5-6.1) 10^6/uL Hgb 13.5 L 12.3 L (14.0-18.0) g/dL Hct 41.1 L 37.2 L (42.0-52.0) % MCV 98.8 98.2 (80.0-105.0) fl MCH 32.5 32.5 (25.0-35.0) pg MCHC 32.8 33.1 (31.0-37.0) g/dl RDW 13.5 13.5 (11.5-14.5) % Plt Count 176 187 (120.0-450.0) 10^3/uL MPV 9.9 10.1 (7.0-11.0) fl Gran % 79.5 H 77.7 H (50.0-68.0) % Lymph % (Auto) 10.7 L 14.0 L (22.0-35.0) % [place] % (Auto) 9.6 H 8.1 H (1.0-6.0) % Eos % (Auto) 0.1 L 0.1 L (1.5-5.0) % Baso % (Auto) 0.1 0.1 (0.0-3.0) % Gran # 11.57 H 11.09 H (1.4-6.5) Lymph # (Auto) 1.6 2.0 (1.2-3.4) [place] # (Auto) 1.4 H 1.2 H (0.1-0.6) Eos # (Auto) 0.0 0.0 (0.0-0.7) Baso # (Auto) 0.01 0.01 (0.0-2.0) K/mm3 Sodium 141 (132-148) mmol/L Potassium 4.1 (3.6-5.0) mmol/L Chloride 112 H (98-107) mmol/L Carbon Dioxide 22 (21-33) mmol/L Anion Gap 12 (10-20) BUN 9 (7-21) mg/dL Creatinine 0.7 L (0.8-1.5) mg/dl Est GFR ( Amer) > 60 Est GFR (Non-Af Amer) > 60 Random Glucose 85 (70-110) mg/dL Calcium 8.4 (8.4-10.5) mg/dL Magnesium 2.2 (1.7-2.2) mg/dL Total Bilirubin 0.8 (0.2-1.3) mg/dL AST 68 H (17-59) U/L ALT 46 (7-56) U/L Alkaline Phosphatase 58 (38-126) U/L Total Protein 6.5 (5.8-8.3) g/dL Albumin 3.7 (3.0-4.8) g/dL Globulin 2.8 gm/dL Albumin/Globulin Ratio 1.3 (1.1-1.8) 06/07/18 06/07/18 Range/Units 18:00 12:50 WBC 13.8 H 12.6 H D (4.5-11.0) 10^3/uL RBC 3.80 3.81 (3.5-6.1) 10^6/uL Hgb 12.4 L 12.6 L (14.0-18.0) g/dL Hct 37.0 L 37.2 L (42.0-52.0) % MCV 97.4 97.6 (80.0-105.0) fl MCH 32.6 33.1 (25.0-35.0) pg MCHC 33.5 33.9 (31.0-37.0) g/dl RDW 13.4 13.3 (11.5-14.5) % Plt Count 166 157 (120.0-450.0) 10^3/uL MPV 9.4 9.5 (7.0-11.0) fl Gran % 80.9 H 80.2 H (50.0-68.0) % Lymph % (Auto) 11.3 L 11.7 L (22.0-35.0) % [place] % (Auto) 7.6 H 7.8 H (1.0-6.0) % Eos % (Auto) 0.1 L 0.2 L (1.5-5.0) % Baso % (Auto) 0.1 0.1 (0.0-3.0) % Gran # 11.21 H 10.12 H (1.4-6.5) Lymph # (Auto) 1.6 1.5 (1.2-3.4) [place] # (Auto) 1.1 H 1.0 H (0.1-0.6) Eos # (Auto) 0.0 0.0 (0.0-0.7) Baso # (Auto) 0.01 0.01 (0.0-2.0) K/mm3 Sodium (132-148) mmol/L Potassium (3.6-5.0) mmol/L Chloride (98-107) mmol/L Carbon Dioxide (21-33) mmol/L Anion Gap (10-20) BUN (7-21) mg/dL Creatinine (0.8-1.5) mg/dl Est GFR ( Amer) Est GFR (Non-Af Amer) Random Glucose (70-110) mg/dL Calcium (8.4-10.5) mg/dL Magnesium (1.7-2.2) mg/dL Total Bilirubin (0.2-1.3) mg/dL AST (17-59) U/L ALT (7-56) U/L Alkaline Phosphatase (38-126) U/L Total Protein (5.8-8.3) g/dL Albumin (3.0-4.8) g/dL Globulin gm/dL Albumin/Globulin Ratio (1.1-1.8) Laboratory Results - last 24 hr 06/07/18 06/07/18 06/08/18 12:50 18:00 00:30 WBC 12.6 H D 13.8 H 14.3 H RBC 3.81 3.80 3.79 Hgb 12.6 L 12.4 L 12.3 L Hct 37.2 L 37.0 L 37.2 L MCV 97.6 97.4 98.2 MCH 33.1 32.6 32.5 MCHC 33.9 33.5 33.1 RDW 13.3 13.4 13.5 Plt Count 157 166 187 MPV 9.5 9.4 10.1 Gran % 80.2 H 80.9 H 77.7 H Lymph % (Auto) 11.7 L 11.3 L 14.0 L [place] % (Auto) 7.8 H 7.6 H 8.1 H Eos % (Auto) 0.2 L 0.1 L 0.1 L Baso % (Auto) 0.1 0.1 0.1 Gran # 10.12 H 11.21 H 11.09 H Lymph # (Auto) 1.5 1.6 2.0 [place] # (Auto) 1.0 H 1.1 H 1.2 H Eos # (Auto) 0.0 0.0 0.0 Baso # (Auto) 0.01 0.01 0.01 Sodium Potassium Chloride Carbon Dioxide Anion Gap BUN Creatinine Est GFR ( Amer) Est GFR (Non-Af Amer) Random Glucose Calcium Magnesium Total Bilirubin AST ALT Alkaline Phosphatase Total Protein Albumin Globulin Albumin/Globulin Ratio 06/08/18 06/08/18 05:30 05:30 WBC 14.6 H RBC 4.16 Hgb 13.5 L Hct 41.1 L MCV 98.8 MCH 32.5 MCHC 32.8 RDW 13.5 Plt Count 176 MPV 9.9 Gran % 79.5 H Lymph % (Auto) 10.7 L [place] % (Auto) 9.6 H Eos % (Auto) 0.1 L Baso % (Auto) 0.1 Gran # 11.57 H Lymph # (Auto) 1.6 [place] # (Auto) 1.4 H Eos # (Auto) 0.0 Baso # (Auto) 0.01 Sodium 141 Potassium 4.1 Chloride 112 H Carbon Dioxide 22 Anion Gap 12 BUN 9 Creatinine 0.7 L Est GFR ( Amer) > 60 Est GFR (Non-Af Amer) > 60 Random Glucose 85 Calcium 8.4 Magnesium 2.2 Total Bilirubin 0.8 AST 68 H ALT 46 Alkaline Phosphatase 58 Total Protein 6.5 Albumin 3.7 Globulin 2.8 Albumin/Globulin Ratio 1.3 Radiology Impressions: Radiology Impressions Head CT 06/06/18 13:40 IMPRESSION: No acute intracranial abnormalities. No significant findings to account for the clinical presentation. Concordant results (preliminary interpretation) provided by SHAZIA FUENTES. Procedure Completed: 22:19. Preliminary Report: Dictated and Authenticated: 22:50. Final Interpretation: 12:11. June 07, 2018 EKG/Cardiology Studies: Cardiology / EKG Studies 06/07/18 14:37 EKG [ELECTROCARDIOGRAM] Stat Comment: was done yesterday 06/06 19:00 Reason For Exam: stat Fingerstick Blood Sugar Results: 246 <Ranjit Hampton - Last Filed: 06/08/18 13:40> CCU Objective - Vital Signs / Intake & Output Vital Signs (Last 4 hours): Vital Signs Temp Pulse Resp BP Pulse Ox 06/08/18 11:00 99.1 F 66 128/71 100 06/08/18 10:50 99.0 F 71 100 06/08/18 10:45 128/72 06/08/18 10:44 99.0 F 68 100 06/08/18 10:40 99.0 F 68 100 06/08/18 10:30 126/77 06/08/18 10:29 98.8 F 70 100 06/08/18 10:20 98.8 F 77 100 06/08/18 10:18 98.8 F 68 17 100 06/08/18 10:17 98.8 F 59 L 26 H 100 06/08/18 10:16 98.8 F 69 25 H 100 06/08/18 10:15 129/75 06/08/18 10:14 98.6 F 67 25 H 100 06/08/18 10:13 98.6 F 69 25 H 100 06/08/18 10:12 98.6 F 68 22 100 06/08/18 10:11 98.6 F 56 L 24 100 06/08/18 10:10 98.8 F 68 26 H 100 06/08/18 10:09 98.6 F 65 25 H 100 06/08/18 10:08 98.6 F 60 23 100 06/08/18 10:07 98.6 F 66 24 99 06/08/18 10:00 126/71 06/08/18 09:59 98.6 F 59 L 100 06/08/18 09:50 98.6 F 61 100 06/08/18 09:45 124/75 06/08/18 09:44 98.6 F 64 100 06/08/18 09:40 98.4 F 65 100 Intake and Output (Last 8hrs): Intake & Output 06/07/18 06/08/18 06/08/18 22:59 06:59 14:59 Intake Total 1450 1700 Output Total 1075 800 Balance 375 900 Weight 137 lb 12.8 oz Intake: IV 1450 1700 Left Forearm 10 Right Forearm 1200 1400 Right Hand 140 100 Oral 0 0 Output: Gastric Amount 200 Stomach 200 Urine 775 600 Urethral ([place]) 775 600 Other 300 Other: # Bowel Movements 0 - Medications Active Medications: Active Medications Generic Name Dose Route Start Last Admin Trade Name Freq PRN Reason Stop Dose Admin Acetaminophen 650 mg 06/06/18 17:21 Tylenol 650 Mg Supp RC Q4H PRN Fever >100.4 F Propofol 1,000 mg in 100 mls @ 2.041 mls/hr 06/06/18 13:44 06/08/18 07:04 Diprivan IV 30 mcg/kg/min .Q24H PRN 12.247 mls/hr TITRATE PER MD ORDER Administration Protocol 5 MCG/KG/MIN Midazolam 100 mg/100ml in NS 100 mg in 100 mls @ 5 mls/hr 06/06/18 14:34 06/08/18 09:53 Midazolam 100 Mg/100ml In Ns IV 6 mg/hr .Q20H PRN 6 mls/hr Agitation Administration Protocol 5 MG/HR Sodium Chloride 1,000 mls @ 100 mls/hr 06/07/18 04:30 06/08/18 11:03 Sodium Chloride 0.9% IV 100 mls/hr .Q10H JENNIFER Administration Levetiracetam 500 mg in 100 mls @ 460 mls/hr 06/07/18 22:00 06/08/18 09:46 Keppra 500mg Ivpb IV 460 mls/hr Q12 JENNIFER Administration Acetaminophen 1,000 mg in 100 mls @ 400 mls/hr 06/07/18 19:53 06/07/18 22:04 Ofirmev IVPB 06/09/18 19:54 400 mls/hr Q6H PRN Administration Temperature Lorazepam 4 mg 06/06/18 19:33 06/06/18 23:36 Ativan IVP 4 mg ONCE PRN Administration prior to CT Protocol Pantoprazole Sodium 40 mg 06/07/18 10:00 06/08/18 11:02 Protonix Inj IVP 40 mg Q12 JENNIFER Administration - Patient Studies Lab Studies: Microbiology Studies 06/06/18 18:50 Urine Culture - Final Urine,[place] No Growth (<1,000 CFU/ML) 06/06/18 16:00 MRSA Culture (Admit) - Final Naris MRSA NOT DETECTED 06/06/18 17:45 Blood Culture - Preliminary Blood NO GROWTH AFTER 24 HOURS 06/06/18 17:30 Blood Culture - Preliminary Blood NO GROWTH AFTER 24 HOURS 06/06/18 18:50 Gram Stain - Final Trachasp Lab Studies 06/08/18 06/08/18 06/08/18 Range/Units 05:30 05:30 00:30 WBC 14.6 H 14.3 H (4.5-11.0) 10^3/uL RBC 4.16 3.79 (3.5-6.1) 10^6/uL Hgb 13.5 L 12.3 L (14.0-18.0) g/dL Hct 41.1 L 37.2 L (42.0-52.0) % MCV 98.8 98.2 (80.0-105.0) fl MCH 32.5 32.5 (25.0-35.0) pg MCHC 32.8 33.1 (31.0-37.0) g/dl RDW 13.5 13.5 (11.5-14.5) % Plt Count 176 187 (120.0-450.0) 10^3/uL MPV 9.9 10.1 (7.0-11.0) fl Gran % 79.5 H 77.7 H (50.0-68.0) % Lymph % (Auto) 10.7 L 14.0 L (22.0-35.0) % [place] % (Auto) 9.6 H 8.1 H (1.0-6.0) % Eos % (Auto) 0.1 L 0.1 L (1.5-5.0) % Baso % (Auto) 0.1 0.1 (0.0-3.0) % Gran # 11.57 H 11.09 H (1.4-6.5) Lymph # (Auto) 1.6 2.0 (1.2-3.4) [place] # (Auto) 1.4 H 1.2 H (0.1-0.6) Eos # (Auto) 0.0 0.0 (0.0-0.7) Baso # (Auto) 0.01 0.01 (0.0-2.0) K/mm3 Sodium 141 (132-148) mmol/L Potassium 4.1 (3.6-5.0) mmol/L Chloride 112 H (98-107) mmol/L Carbon Dioxide 22 (21-33) mmol/L Anion Gap 12 (10-20) BUN 9 (7-21) mg/dL Creatinine 0.7 L (0.8-1.5) mg/dl Est GFR ( Amer) > 60 Est GFR (Non-Af Amer) > 60 Random Glucose 85 (70-110) mg/dL Hemoglobin A1c (4.2-6.5) % Calcium 8.4 (8.4-10.5) mg/dL Magnesium 2.2 (1.7-2.2) mg/dL Total Bilirubin 0.8 (0.2-1.3) mg/dL AST 68 H (17-59) U/L ALT 46 (7-56) U/L Alkaline Phosphatase 58 (38-126) U/L Total Protein 6.5 (5.8-8.3) g/dL Albumin 3.7 (3.0-4.8) g/dL Globulin 2.8 gm/dL Albumin/Globulin Ratio 1.3 (1.1-1.8) 06/07/18 06/07/18 Range/Units 18:00 14:00 WBC 13.8 H (4.5-11.0) 10^3/uL RBC 3.80 (3.5-6.1) 10^6/uL Hgb 12.4 L (14.0-18.0) g/dL Hct 37.0 L (42.0-52.0) % MCV 97.4 (80.0-105.0) fl MCH 32.6 (25.0-35.0) pg MCHC 33.5 (31.0-37.0) g/dl RDW 13.4 (11.5-14.5) % Plt Count 166 (120.0-450.0) 10^3/uL MPV 9.4 (7.0-11.0) fl Gran % 80.9 H (50.0-68.0) % Lymph % (Auto) 11.3 L (22.0-35.0) % [place] % (Auto) 7.6 H (1.0-6.0) % Eos % (Auto) 0.1 L (1.5-5.0) % Baso % (Auto) 0.1 (0.0-3.0) % Gran # 11.21 H (1.4-6.5) Lymph # (Auto) 1.6 (1.2-3.4) [place] # (Auto) 1.1 H (0.1-0.6) Eos # (Auto) 0.0 (0.0-0.7) Baso # (Auto) 0.01 (0.0-2.0) K/mm3 Sodium (132-148) mmol/L Potassium (3.6-5.0) mmol/L Chloride (98-107) mmol/L Carbon Dioxide (21-33) mmol/L Anion Gap (10-20) BUN (7-21) mg/dL Creatinine (0.8-1.5) mg/dl Est GFR ( Amer) Est GFR (Non-Af Amer) Random Glucose (70-110) mg/dL Hemoglobin A1c 5.8 (4.2-6.5) % Calcium (8.4-10.5) mg/dL Magnesium (1.7-2.2) mg/dL Total Bilirubin (0.2-1.3) mg/dL AST (17-59) U/L ALT (7-56) U/L Alkaline Phosphatase (38-126) U/L Total Protein (5.8-8.3) g/dL Albumin (3.0-4.8) g/dL Globulin gm/dL Albumin/Globulin Ratio (1.1-1.8) Laboratory Results - last 24 hr 06/07/18 06/07/18 06/08/18 14:00 18:00 00:30 WBC 13.8 H 14.3 H RBC 3.80 3.79 Hgb 12.4 L 12.3 L Hct 37.0 L 37.2 L MCV 97.4 98.2 MCH 32.6 32.5 MCHC 33.5 33.1 RDW 13.4 13.5 Plt Count 166 187 MPV 9.4 10.1 Gran % 80.9 H 77.7 H Lymph % (Auto) 11.3 L 14.0 L [place] % (Auto) 7.6 H 8.1 H Eos % (Auto) 0.1 L 0.1 L Baso % (Auto) 0.1 0.1 Gran # 11.21 H 11.09 H Lymph # (Auto) 1.6 2.0 [place] # (Auto) 1.1 H 1.2 H Eos # (Auto) 0.0 0.0 Baso # (Auto) 0.01 0.01 Sodium Potassium Chloride Carbon Dioxide Anion Gap BUN Creatinine Est GFR ( Amer) Est GFR (Non-Af Amer) Random Glucose Hemoglobin A1c 5.8 Calcium Magnesium Total Bilirubin AST ALT Alkaline Phosphatase Total Protein Albumin Globulin Albumin/Globulin Ratio 06/08/18 06/08/18 05:30 05:30 WBC 14.6 H RBC 4.16 Hgb 13.5 L Hct 41.1 L MCV 98.8 MCH 32.5 MCHC 32.8 RDW 13.5 Plt Count 176 MPV 9.9 Gran % 79.5 H Lymph % (Auto) 10.7 L [place] % (Auto) 9.6 H Eos % (Auto) 0.1 L Baso % (Auto) 0.1 Gran # 11.57 H Lymph # (Auto) 1.6 [place] # (Auto) 1.4 H Eos # (Auto) 0.0 Baso # (Auto) 0.01 Sodium 141 Potassium 4.1 Chloride 112 H Carbon Dioxide 22 Anion Gap 12 BUN 9 Creatinine 0.7 L Est GFR ( Amer) > 60 Est GFR (Non-Af Amer) > 60 Random Glucose 85 Hemoglobin A1c Calcium 8.4 Magnesium 2.2 Total Bilirubin 0.8 AST 68 H ALT 46 Alkaline Phosphatase 58 Total Protein 6.5 Albumin 3.7 Globulin 2.8 Albumin/Globulin Ratio 1.3 Radiology Impressions: Radiology Impressions Chest X-Ray 06/08/18 08:31 IMPRESSION: No active disease. EKG/Cardiology Studies: Cardiology / EKG Studies 06/07/18 14:37 EKG [ELECTROCARDIOGRAM] Stat Comment: was done yesterday 06/06 19:00 Reason For Exam: stat Assessment/Plan - Assessment and Plan (Free Text) Assessment: Patient seen and examined on rounds with resident, agree with note with following additions/exceptions: Patient is 42yo male with PMHx of marijuana abuse, presented s/p cardiac arrest, VFIB arrest, intubated Currently intubated, sedated, HD stable, comfortable in NAD EEG done, results noted CTH done on presentation no acute itracranial pathology NGT with dark/bloody material, GI following, HH has been stable Cardiology following Cardiac Arrest, ROSC GIB Recommend: - cont wiht vent support, low tidal vol ventilation, daily sedation vacation, - NO Issues - BP control - ECHO - cardiology follow up, may need cardiac cath - monitor electrolytes - NPO - PPI drip - monitor HH, thus far has been stable - follow up GI - follow up Neuro, ??MRI brain - GI ppx - DVT ppx, SCDs - Monitor in MICU Critical care time 35 minutes
[2018-06-08] MEDS: Propofol 10 mg/ml 1,000 MG/100 ML VIAL IV PRN ×3 (07:04→21:33)
[2018-06-08] MEDS: Sodium Chloride 0.9% 1,000 ML IV SCH ×3 (07:05→21:36)
--- NOTE | 2018-06-08 08:01 | CP.PCM.PN ---
<Imtiaz Bailey - Last Filed: 06/08/18 07:57> Subjective - Date & Time of Evaluation Date of Evaluation: 06/08/18 Time of Evaluation: 07:45 - Subjective Subjective: PGY-4 GI Fellow Consult Note The following obtained from chart review, hospital staff and family at bedside due to patient's clinical condition. Pt is a 42 yo WM with h/o cannabis abuse c/b hyperemesis who was admitted for cardiac arrest. There was some reports of possible seizure activity, respiratory failure then cardiac arrest. CPR and intubation were done in the field and patient later admitted to the ICU for ongoing treatment. Shortly after admission, an OG was placed which later reveal some bloody suctioned material and Hgb decreased from 13.9 -> 12.1; therefore, GI was called for further evaluation. Unable to obtain ROS due to clinical condition MHx: See above SurgHx: None Meds: None FamHx: Mother with CRC, dx at 62 yo SocHx: + MJ, no other substances reported All: NKDA Endos: Possible EGD many years ago, but no CSPY Objective - Vital Signs/Intake and Output Vital Signs (last 24 hours): Temp Pulse Resp BP Pulse Ox 98.6 F 65 17 124/70 98 06/08/18 04:23 06/08/18 04:23 06/08/18 07:37 06/08/18 04:15 06/08/18 07:37 Intake and Output: 06/08/18 06/08/18 06:59 18:59 Intake Total 1600 Output Total 800 Balance 800 - Medications Medications: Current Medications Acetaminophen (Tylenol 650 Mg Supp) 650 mg RC Q4H PRN PRN Reason: Fever >100.4 F Propofol (Diprivan) 1,000 mg in 100 mls @ 2.041 mls/hr IV .Q24H PRN; Protocol PRN Reason: TITRATE PER MD ORDER Last Admin: 06/08/18 07:04 Dose: 30 mcg/kg/min, 12.247 mls/hr Midazolam 100 mg/100ml in NS (Midazolam 100 Mg/100ml In Ns) 100 mg in 100 mls @ 5 mls/hr IV .Q20H PRN; Protocol PRN Reason: Agitation Last Titration: 06/07/18 07:00 Dose: 6 mg/hr, 6 mls/hr Sodium Chloride (Sodium Chloride 0.9%) 1,000 mls @ 100 mls/hr IV .Q10H [facility] Last Admin: 06/08/18 07:05 Dose: 100 mls/hr Levetiracetam (Keppra 500mg Ivpb) 500 mg in 100 mls @ 460 mls/hr IV Q12 [facility]ENN[facility]ER Last Admin: 06/07/18 22:03 Dose: 460 mls/hr Acetaminophen (Ofirmev) 1,000 mg in 100 mls @ 400 mls/hr IVPB Q6H PRN PRN Reason: Temperature Stop: 06/09/18 19:54 Last Admin: 06/07/18 22:04 Dose: 400 mls/hr Lorazepam (Ativan) 4 mg IVP ONCE PRN; Protocol PRN Reason: prior to CT Last Admin: 06/06/18 23:36 Dose: 4 mg Pantoprazole Sodium (Protonix Inj) 40 mg IVP Q12 [facility] Last Admin: 06/07/18 22:10 Dose: 40 mg - Labs Labs: 06/08/18 05:30 06/08/18 05:30 PT 12.4 SECONDS (9.4-12.5) 06/06/18 13:00 INR 1.08 06/06/18 13:00 - Constitutional Appears: Other (Sedated, on vent) - ENT Exam ENT Exam: Mucous Membranes Dry. absent: Mucous Membranes Moist - Respiratory Exam Additional comments: intubated, lungs clear anteriorly - Cardiovascular Exam Cardiovascular Exam: REGULAR RHYTHM, RRR - GI/Abdominal Exam GI & Abdominal Exam: Normal Bowel Sounds. absent: Bruit, Distended, Firm, Guarding, Rigid, Soft, Tenderness, Mass, Organomegaly, Pulsatile Mass, Rebound - Rectal Exam Rectal Exam: Deferred - Extremities Exam Extremities Exam: Normal Inspection. absent: Pedal Edema - Neurological Exam Neurological Exam: Altered. absent: Alert - Skin Skin Exam: Dry, Warm Assessment and Plan - Assessment and Plan (Free Text) Assessment: 42 yo WM with seizure activity, cardiac arrest, respiratory failure found to have some bloody output from OG tube. # Bloody OG output, Upper GI Bleed: Vitals and repeat Hgb stable. Main DDx included MW Syndrome given seizure activity and current intubation status (pt was reported agitated and while intubated can raise intrabd pressure). Also could be related to OG trauma. No reported hematemesis per nursing or family prior. Plan: - PPI IV q 12hrs - Monitor Hgb - If symptoms persist and pending clinical course, will consider endoscopic evaluation - Supportive care Pt seen and examined with Dr. Minor; please see attestation for further recs/changes. Imtiaz Bailey, PGY-4 <Sam Minor - Last Filed: 06/08/18 08:11> Objective - Vital Signs/Intake and Output Vital Signs (last 24 hours): Temp Pulse Resp BP Pulse Ox 98.6 F 65 17 124/70 98 06/08/18 04:23 06/08/18 04:23 06/08/18 07:37 06/08/18 04:15 06/08/18 07:37 Intake and Output: 06/08/18 06/08/18 06:59 18:59 Intake Total 1600 Output Total 800 Balance 800 - Medications Medications: Current Medications Acetaminophen (Tylenol 650 Mg Supp) 650 mg RC Q4H PRN PRN Reason: Fever >100.4 F Propofol (Diprivan) 1,000 mg in 100 mls @ 2.041 mls/hr IV .Q24H PRN; Protocol PRN Reason: TITRATE PER MD ORDER Last Admin: 06/08/18 07:04 Dose: 30 mcg/kg/min, 12.247 mls/hr Midazolam 100 mg/100ml in NS (Midazolam 100 Mg/100ml In Ns) 100 mg in 100 mls @ 5 mls/hr IV .Q20H PRN; Protocol PRN Reason: Agitation Last Titration: 06/07/18 07:00 Dose: 6 mg/hr, 6 mls/hr Sodium Chloride (Sodium Chloride 0.9%) 1,000 mls @ 100 mls/hr IV .Q10H [facility] Last Admin: 06/08/18 07:05 Dose: 100 mls/hr Levetiracetam (Keppra 500mg Ivpb) 500 mg in 100 mls @ 460 mls/hr IV Q12 [facility] Last Admin: 06/07/18 22:03 Dose: 460 mls/hr Acetaminophen (Ofirmev) 1,000 mg in 100 mls @ 400 mls/hr IVPB Q6H PRN PRN Reason: Temperature Stop: 06/09/18 19:54 Last Admin: 06/07/18 22:04 Dose: 400 mls/hr Lorazepam (Ativan) 4 mg IVP ONCE PRN; Protocol PRN Reason: prior to CT Last Admin: 06/06/18 23:36 Dose: 4 mg Pantoprazole Sodium (Protonix Inj) 40 mg IVP Q12 [facility]ENN[facility] Last Admin: 06/07/18 22:10 Dose: 40 mg - Labs Labs: 06/08/18 05:30 06/08/18 05:30 PT 12.4 SECONDS (9.4-12.5) 06/06/18 13:00 INR 1.08 06/06/18 13:00 Attending/Attestation - Attestation I have personally seen and examined this patient.: Yes I have fully participated in the care of the patient.: Yes I have reviewed all pertinent clinical information, including history, physical exam and plan: Yes Notes (Text): 06/08/18 08:05 I have seen and examined patient with GI fellow. Agree with above documentation with the following additions. In brief, this is a 42 year old male with history of substance abuse who presented to hospital with complaint of altered mental status, found to be unresponsive at home, intubated and brought to hospital. Hospital course complicated by seizure activity and cardiac arrest. GI called for evaluation of bloody output via OGT. Patient is currently intubated and sedated in critical care unit, undergoing video EEG monitoring. Approximately 600 cc bloody output in canister via OGT over past 24 hours noted. Review of vitals from today are normal. Substance abuse Altered mental status Status epilepticus Cardiac arrest Suspected upper GI bleeding, anemia - NPO - Continue to monitor OGT output - H/H stable, continue to monitor - Continue with PPI therapy - Follow up neurology recommendations - No current indication for GI intervention given ongoing cardiac and neurologic issues, will continue to monitor patient clinical course
--- NOTE | 2018-06-08 08:59 | CARD ---
APPROVED REPORT Date of service: 06/06/2018 EKG Measurement Heart [id number] <Conclusion> Sinus tachycardia Possible Left atrial enlargement Anterolateral infarct, age unknown, possibly recent
--- NOTE | 2018-06-08 09:33 | RAD ---
Date of service: 06/08/2018 HISTORY: vented COMPARISON: 06/06/2018 FINDINGS: LUNGS: The endotracheal tube and nasogastric tube are in satisfactory position. PLEURA: No significant pleural effusion identified, no pneumothorax apparent. CARDIOVASCULAR: No aortic atherosclerotic calcification present. Normal cardiac size. No pulmonary vascular congestion. OSSEOUS STRUCTURES: No significant abnormalities. VISUALIZED UPPER ABDOMEN: Normal. OTHER FINDINGS: None. IMPRESSION: No active disease.
[2018-06-08] MEDS: levETIRAcetam 500mg IVPB 500 MG/100 ML BAG IV SCH ×2 (09:46→21:34)
[2018-06-08] MEDS: Midazolam 100 mg/100ml in NS 100 MG/100 ML SOL IV PRN (09:53)
--- NOTE | 2018-06-08 10:10 | PCM.VEEG ---
Video EEG - Procedure Start Date: 06/07/18 Start Time: 16:10 End Date: 06/08/18 End Time: 09:00 Technical Summary: DATA ACQUISITION: This was a multichannel inpatient video-EEG, a minimum of 22 channels were uti lized, performed in accordance with recommendations specified by the [place] [employer] (Savage Ortega et al. ACNS Guideline 1: Minimum Technical Requirements for Performing Clinical Electroencephalography. Journal of Clinical Neurophysiology 2016;33:303-7). The 10-20 electrode placement system was utilized in accordance with guidelines detailed by the International Federation of Clinical Neurophysiology (Melita Montoya et al. The Ten-Twenty Electrode System of the International Federation. Recommendations for the Practice of Clinical Neurophysiology: Guidelines of the International Federation of Clinical Physiology 1999; EEG Suppl. 52.). DATA REVIEW / SPIKE DETECTION / DIGITAL ANALYSIS: The entire EEG was scanned and reviewed. Synchronized audio and video recording were reviewed at the time of each alarm and whenever an abnormality or suspicious activity was noted. The entire recording was analyzed utilizing an automated digital spike and seizure analysis program and all automatic spike and seizure detections were manually reviewed. A compressed spectral array was displayed and reviewed alongside the raw EEG tracings. In addition, further analysis of the EEG was performed when abnormalities were identified, including montage changes, dipole source localization, and frequency band identification. Video portion of the study is necessary to correlate abnormal EEG activity with clinical behavior. This study was attended 24 hours per day. - Interpretation Description of the study: INDICATION; 42 y/o man s/p cardiac arrest, preceded by a seizure, now unresponsive, possible non convulsive status epielpticus. EEG Finding during wakefulness: There was not discernible awake EEG background (patient was sedated), the EEG showed diffuse bilateral attenuation with frequencies in the 7 to 8 Hz range that were noon reactive to stimulation. At times EEG looks like diffuse bilateral a reactive alpha activity. Other time, the EEG showed diffuse 4 to5 Hz slowing with over riding faster activity. There was intermittent bifrontal rhythmic delta slowing at 3 to 4 Hz lasting 3 to 6 seconds seen on and off during the test. EEG Finding during sleep: Normal sleep architecture was not seen. The EEG did not show awake/sleep architecture. Interictal non-epileptiform abnormalities: None Interictal epileptiform abnormalities: None Ictal epileptiform abnormalities: None - Impression Impression: This is an abnormal video EEG, monitoring study, due to the presence of: 1- Moderate to severe background slowing, and EEG disorganization. No episodes were capture. No seizures. Not in status epilepticus. INTERPRETATION: The above findings are in keeping with a moderate to severe non specific diffuse disturbance of cortical activity. This is in keeping with a diffuse rae matter dysfunction. The findings do not suggest a specific etiology.
--- NOTE | 2018-06-08 12:46 | CARD ---
APPROVED REPORT Date of service: 06/08/2018 EXAM: Two-dimensional and M-mode echocardiogram with Doppler and color Doppler. INDICATION EVAL LVEF 2D DIMENSIONS IVSd1.1 (0.7-1.1cm)LVDd6.7 (3.9-5.9cm) PWd1.0 (0.7-1.1cm)LVDs5.9 (2.5-4.0cm) FS (%) 12.6 %LVEF (%)26.1 (>50%) M-Mode DIMENSIONS Left Atrium (MM)4.50 (2.5-4.0cm)Aortic Root3.50 (2.2-3.7cm) Aortic Cusp Exc.2.30 (1.5-2.0cm) Aortic Valve AoV Peak Utwjakbu404.0cm/Viral Peak GR.6mmHg Mitral Valve MV E Ouvatoyw069.0cm/sMV A Ktpvpmlt84.9cm/sE/A ratio2.1 TDI Lateral E' Peak V4.68cm/sMedial E' Peak V4.60cm/sE/Lateral E'22.0 E/Medial E'22.4 Tricuspid Valve TR Peak [id number]/sRAP [id number] Peak Gr.38mmHg [id number] LEFT VENTRICLE The Left Ventricle is moderately dilated. There is normal left ventricular wall thickness. The systolic function is severely impaired. Akinetic [place] Transmitral Doppler flow pattern is abnormal. Spontaneous contrast is noted consistent with the low flow state. RIGHT VENTRICLE The right ventricle is normal size. There is normal right ventricular wall thickness. Systolic function is mildly reduced. ATRIA The left atrium is mildly dilated. The right atrium is mildly dilated. AORTIC VALVE The aortic valve is normal in structure. There is trace aortic regurgitation. There is no aortic valvular stenosis. MITRAL VALVE There is no mitral valve regurgitation noted. There is no mitral valve stenosis. A mild mitral valve prolapse is present. TRICUSPID VALVE There is mild tricuspid regurgitation. There is mild to moderate pulmonary hypertension. GREAT VESSELS The aortic root is normal in size. <Conclusion> The Left Ventricle is moderately dilated. There is normal left ventricular wall thickness. The systolic function is severely impaired. Akinetic [place] Transmitral Doppler flow pattern is abnormal. Spontaneous contrast is noted consistent with the low flow state. There is mild tricuspid regurgitation. There is mild to moderate pulmonary hypertension.
--- NOTE | 2018-06-08 18:01 | PN ---
DATE: SUBJECTIVE: The patient is sedated on a ventilator. PHYSICAL EXAMINATION: VITAL SIGNS: Blood pressure 128/71, heart rate 66, temperature 98.1, respirations 20. HEENT: Normocephalic. CHEST: Bilateral rhonchi. HEART: S1 and S2 regular. EXTREMITIES: No edema. LABORATORY DATA: Today's hemoglobin and hematocrit 13.5 and 41.1, white count 14.6, platelet count 176,000. Today's SMA-7: Within normal limits except for chloride of 112 and BUN of 0.7. Echocardiographic study revealed mildly dilated eccentric with apical akinesis and ejection fraction. In my opinion, the yeast infection is now close to 15%. Spontaneous echo contrast is noted in the left ventricle. ASSESSMENT: 1. Status post cardiac arrest. 2. Ischemic cardiomyopathy. 3. Seizure activity. 4. Gastrointestinal bleeding. RECOMMENDATIONS: Case was discussed with the medical team. Continue current IV Keppra and IV midazolam. Start Coreg at 3.125 mg twice a day and Cozaar 12.5 mg daily. Cardiac catheterization will be considered once the patient is clear from the neurological point of view and stable from the respiratory failure point of view. Boyd Hernandez MD (Delete this signature block when dictator is a preceptor.)
[2018-06-09] MEDS: Midazolam 100 mg/100ml in NS 100 MG/100 ML SOL IV PRN ×2 (01:01→16:42)
[2018-06-09] MEDS: Propofol 10 mg/ml 1,000 MG/100 ML VIAL IV PRN ×3 (02:08→16:44)
[2018-06-09 05:42] LABS: BASO # 0.02 K/mm3 (0.0-2.0); BASO % 0.1 % (0.0-3.0); EOS # 0.1 (0.0-0.7); EOS % 0.4 % (1.5-5.0); GRAN # 9.9 (1.4-6.5); HEMOGLOBIN 12.9 g/dL (14.0-18.0); LYMPH # 2.5 (1.2-3.4); LYMPH % 18.3 % (22.0-35.0); MEAN CORPUSCULAR HEMOGLOBIN 32.8 pg (25.0-35.0); MEAN CORPUSCULAR HGB CONC 32.8 g/dl (31.0-37.0); MEAN PLATELET VOLUME 9.8 fl (7.0-11.0); MONO # 1.3 (0.1-0.6); MONO % 9.2 % (1.0-6.0); RBC 3.93 10^6/uL (3.5-6.1); RED CELL DISTRIBUTION WIDTH 13.6 % (11.5-14.5); WHITE BLOOD COUNT 13.8 10^3/uL (4.5-11.0)
[2018-06-09 05:51] LABS: ALB/GLOB RATIO 1.3 (1.1-1.8); ALBUMIN 3.6 g/dL (3.0-4.8); ALT/SGPT 41 U/L (7-56); AST/SGOT 72 U/L (17-59); BLOOD UREA NITROGEN 8 mg/dL (7-21); CALCIUM 8.6 mg/dL (8.4-10.5); GFR NON-AFRICAN AMERICAN > 60
[2018-06-09 06:01] LABS: TROPONIN I 0.02 ng/mL
[2018-06-09 06:25] LABS: ARTERIAL BLOOD GAS HEMOGLOBIN 11.7 g/dL (11.7-17.4); ARTERIAL BLOOD GAS O2 CAPACITY 16.1 mL/dl (16-24); ARTERIAL BLOOD GAS O2 CONTENT 15.7 ML/dl (15-23); ARTERIAL BLOOD GAS O2 SAT 97.7 % (95-98); ARTERIAL BLOOD GAS PCO2 30 mm/Hg (35-45); ARTERIAL BLOOD GAS PH 7.41 (7.35-7.45); ARTERIAL BLOOD GAS TCO2 19.9 mmol.L (22-28)
[2018-06-09 07:40] LABS: CK MB% 0.2 % (2.5-3.0); CK-MB 5.3 ng/mL (0.0-3.6)
--- NOTE | 2018-06-09 08:13 | CP.CCUPN ---
<Tani Mesa - Last Filed: 06/09/18 10:29> CCU Subjective - Physician Review Subjective (Free Text): Tani Mesa Internal Medicine Resident- Progress Note on Behalf of Critical Care Team Subjective: Patient seen and examined at bedside. Tmax overnight 100.6 F. Further subjective data cannot be ascertained at this time. 12 point ROS cannot be ascertained at this time due to altered mental status Physical Examination: - Constitutional Appears: Well, No Acute Distress - Head Exam Head Exam: ATRAUMATIC, NORMAL INSPECTION, NORMOCEPHALIC - Eye Exam Eye Exam: pinpoint pupils bilaterally, responsive to light - ENT Exam ENT Exam: Mucous Membranes Moist, OG tube and ett in place - Neck Exam Neck exam: Positive for: Normal Inspection - Respiratory Exam Respiratory Exam: Clear to Auscultation Bilateral, NORMAL BREATHING PATTERN - Cardiovascular Exam Cardiovascular Exam: REGULAR RHYTHM, +S1, +S2. absent: Gallop, JVD, Rubs - GI/Abdominal Exam GI & Abdominal Exam: Normal Bowel Sounds, Soft. absent: Tenderness - Neurological Exam Neurological exam: Altered mental status, GCS 3T - Psychiatric Exam Psychiatric exam: Normal Affect, Normal Mood - Skin Skin Exam: Dry, Intact, Normal Color, Warm Assessment and Plan: Patient is a 42 year old male with a past medical history of cannabis hyperemesis syndrome who came in s/p cardiac arrest and obtained ROSC with CPR and defibrillation. Patient is admitted to ICU for management of respiratory failure on vent. Neuro Acute encephalopathy,AMS - rule out metabolic vs. toxic - 06/06/2018 CT Head without contrast No acute intracranial abnormalities - 06/08/2018 CT head without contrast- ordered and pending- to be completed after video eeg completed - GCS3T Seizures - continue on keppra 500mg IV q12 - will discontinue on versed drip 5mcg/hr & propofol @ 5mcg/kg/min pending repeat CT of head without contrast 06/09/2018 - neurology consulted- appreciate recommendation, follow up video EEG - UDS positive for cannabinoids Cardiovascular: Cardiac Arrest s/p ROSC - troponins trending down - 06/08/2018 echocardiogram- LVEF 26%, LV moderately dilated, akinetic apex - hold aspirin due to GI bleed - consider starting patient on statin once CPK normalizes - cardiology consulted (Dr. Velasco)- appreciate recommendation- will need AC upon GI hemorrhage resolution, continue carvedilol 3.125 PO BID and losartan 12.5 PO daily with holding parameters Hyperlipidemia - elevated LDL and TAG - consider starting patient on statin once CPK normalizes - hold aspirin secondary to GI bleed Resp: Respiratory Failure s/p Cardiac Arrest, Seizure - intubated - continue PRVC TV450 RR15 FiO2 50 PEEP5 - weaning trial and sedation trial daily MSK Rhabdomyolysis - CPK elevated~ 2700 - increase IVF NS @ 100cc/hr to 150cc/hr - repeat CPK in AM GI GI Hemorrhage - ddx- j carlos keith tear during seizure episode - NPO - protonix 40mg IV q12 changed to protonix 40mg IV daily - continue IVF NS @ 100cc/hr - GI consulted (Dr. Minor)- appreciate recommendations Heme Anemia - normocytic - stable 12.9 DVT Ppx - SCD Patient case discussed with and plan approved by attending physician, Dr. Hampton. CCU Objective - Vital Signs / Intake & Output Vital Signs (Last 4 hours): Vital Signs Pulse 06/09/18 06:00 63 Intake and Output (Last 8hrs): Intake & Output 06/08/18 06/09/18 06/09/18 22:59 06:59 14:59 Intake Total 1700 1789 Output Total 900 1000 Balance 800 789 Weight 151 lb 3.2 oz Intake: IV 1700 1789 Left Forearm 1489 Right Forearm 400 Right Hand 1200 Oral 0 0 Output: Gastric Amount 200 Stomach 200 Urine 900 500 Urethral ([place]) 900 500 Other 300 Other: # Bowel Movements 0 - Medications Active Medications: Active Medications Generic Name Dose Route Start Last Admin Trade Name Freq PRN Reason Stop Dose Admin Acetaminophen 650 mg 06/06/18 17:21 06/09/18 00:03 Tylenol 650 Mg Supp RC 650 mg Q4H PRN Administration Fever >100.4 F Carvedilol 3.125 mg 06/08/18 18:00 06/08/18 21:21 Coreg PO 3.125 mg BID JENNIFER Administration Propofol 1,000 mg in 100 mls @ 2.041 mls/hr 06/06/18 13:44 06/09/18 06:36 Diprivan IV 45 mcg/kg/min .Q24H PRN 18.371 mls/hr TITRATE PER MD ORDER Administration Protocol 5 MCG/KG/MIN Midazolam 100 mg/100ml in NS 100 mg in 100 mls @ 5 mls/hr 06/06/18 14:34 06/09/18 01:01 Midazolam 100 Mg/100ml In Ns IV 6 mg/hr .Q20H PRN 6 mls/hr Agitation Administration Protocol 5 MG/HR Sodium Chloride 1,000 mls @ 100 mls/hr 06/07/18 04:30 06/08/18 21:36 Sodium Chloride 0.9% IV 100 mls/hr .Q10H JENNIFER Administration Levetiracetam 500 mg in 100 mls @ 460 mls/hr 06/07/18 22:00 06/08/18 21:34 Keppra 500mg Ivpb IV 460 mls/hr Q12 JENNIFER Administration Acetaminophen 1,000 mg in 100 mls @ 400 mls/hr 06/07/18 19:53 06/07/18 22:04 Ofirmev IVPB 06/09/18 19:54 400 mls/hr Q6H PRN Administration Temperature Lorazepam 4 mg 06/06/18 19:33 06/06/18 23:36 Ativan IVP 4 mg ONCE PRN Administration prior to CT Protocol Losartan Potassium 12.5 mg 06/08/18 14:15 06/08/18 16:37 Cozaar PO 12.5 mg DAILY JENNIFER Administration Pantoprazole Sodium 40 mg 06/07/18 10:00 06/08/18 21:35 Protonix Inj IVP 40 mg Q12 JENNIFER Administration Thiamine HCl 100 mg 06/08/18 14:15 06/08/18 16:38 Vitamin B1 Tab NG 100 mg DAILY JENNIFER Administration - Patient Studies Lab Studies: Microbiology Studies 06/06/18 17:45 Blood Culture - Preliminary Blood NO GROWTH AFTER 48 HOURS 06/06/18 17:30 Blood Culture - Preliminary Blood NO GROWTH AFTER 48 HOURS 06/06/18 18:50 Urine Culture - Final Urine,[place] No Growth (<1,000 CFU/ML) Lab Studies 06/09/18 06/09/18 06/09/18 Range/Units 05:25 05:25 05:00 WBC 13.8 H (4.5-11.0) 10^3/uL RBC 3.93 (3.5-6.1) 10^6/uL Hgb 12.9 L (14.0-18.0) g/dL Hct 39.3 L (42.0-52.0) % MCV 100.0 (80.0-105.0) fl MCH 32.8 (25.0-35.0) pg MCHC 32.8 (31.0-37.0) g/dl RDW 13.6 (11.5-14.5) % Plt Count 195 (120.0-450.0) 10^3/uL MPV 9.8 (7.0-11.0) fl Gran % 72.0 H (50.0-68.0) % Lymph % (Auto) 18.3 L (22.0-35.0) % Rolette % (Auto) 9.2 H (1.0-6.0) % Eos % (Auto) 0.4 L (1.5-5.0) % Baso % (Auto) 0.1 (0.0-3.0) % Gran # 9.90 H (1.4-6.5) Lymph # (Auto) 2.5 (1.2-3.4) Rolette # (Auto) 1.3 H (0.1-0.6) Eos # (Auto) 0.1 (0.0-0.7) Baso # (Auto) 0.02 (0.0-2.0) K/mm3 pCO2 30 L (35-45) mm/Hg pO2 78.0 L (80-100) mm/Hg HCO3 19.0 L (21-28) mmol/L ABG pH 7.41 (7.35-7.45) ABG Total CO2 19.9 L (22-28) mmol.L ABG O2 Saturation 97.7 (95-98) % ABG O2 Content 15.7 (15-23) ML/dl ABG Base Excess -4.6 L (-2.0-3.0) mmol/L ABG Hemoglobin 11.7 (11.7-17.4) g/dL ABG Carboxyhemoglobin 1.8 H (0.5-1.5) % POC ABG HHb (Measured) 2.2 (0-5) % ABG Methemoglobin 0.8 (0.0-3.0) % ABG O2 Capacity 16.1 (16-24) mL/dl Hgb O2 Saturation 95.2 (95.0-98.0) % FiO2 50.0 % Sodium 142 (132-148) mmol/L Potassium 4.3 (3.6-5.0) mmol/L Chloride 113 H (98-107) mmol/L Carbon Dioxide 22 (21-33) mmol/L Anion Gap 11 (10-20) BUN 8 (7-21) mg/dL Creatinine 0.6 L (0.8-1.5) mg/dl Est GFR ( Amer) > 60 Est GFR (Non-Af Amer) > 60 Random Glucose 79 (70-110) mg/dL Hemoglobin A1c (4.2-6.5) % Calcium 8.6 (8.4-10.5) mg/dL Magnesium 2.1 (1.7-2.2) mg/dL Total Bilirubin 0.6 (0.2-1.3) mg/dL AST 72 H (17-59) U/L ALT 41 (7-56) U/L Alkaline Phosphatase 59 (38-126) U/L Total Creatine Kinase 2702 H (35-230) U/L CK-MB (CK-2) 5.3 H (0.0-3.6) ng/mL CK-MB (CK-2) % 0.2 L (2.5-3.0) % Troponin I 0.02 D ng/mL Total Protein 6.5 (5.8-8.3) g/dL Albumin 3.6 (3.0-4.8) g/dL Globulin 2.9 gm/dL Albumin/Globulin Ratio 1.3 (1.1-1.8) 06/07/18 Range/Units 14:00 WBC (4.5-11.0) 10^3/uL RBC (3.5-6.1) 10^6/uL Hgb (14.0-18.0) g/dL Hct (42.0-52.0) % MCV (80.0-105.0) fl MCH (25.0-35.0) pg MCHC (31.0-37.0) g/dl RDW (11.5-14.5) % Plt Count (120.0-450.0) 10^3/uL MPV (7.0-11.0) fl Gran % (50.0-68.0) % Lymph % (Auto) (22.0-35.0) % Rolette % (Auto) (1.0-6.0) % Eos % (Auto) (1.5-5.0) % Baso % (Auto) (0.0-3.0) % Gran # (1.4-6.5) Lymph # (Auto) (1.2-3.4) Rolette # (Auto) (0.1-0.6) Eos # (Auto) (0.0-0.7) Baso # (Auto) (0.0-2.0) K/mm3 pCO2 (35-45) mm/Hg pO2 (80-100) mm/Hg HCO3 (21-28) mmol/L ABG pH (7.35-7.45) ABG Total CO2 (22-28) mmol.L ABG O2 Saturation (95-98) % ABG O2 Content (15-23) ML/dl ABG Base Excess (-2.0-3.0) mmol/L ABG Hemoglobin (11.7-17.4) g/dL ABG Carboxyhemoglobin (0.5-1.5) % POC ABG HHb (Measured) (0-5) % ABG Methemoglobin (0.0-3.0) % ABG O2 Capacity (16-24) mL/dl Hgb O2 Saturation (95.0-98.0) % FiO2 % Sodium (132-148) mmol/L Potassium (3.6-5.0) mmol/L Chloride (98-107) mmol/L Carbon Dioxide (21-33) mmol/L Anion Gap (10-20) BUN (7-21) mg/dL Creatinine (0.8-1.5) mg/dl Est GFR ( Amer) Est GFR (Non-Af Amer) Random Glucose (70-110) mg/dL Hemoglobin A1c 5.8 (4.2-6.5) % Calcium (8.4-10.5) mg/dL Magnesium (1.7-2.2) mg/dL Total Bilirubin (0.2-1.3) mg/dL AST (17-59) U/L ALT (7-56) U/L Alkaline Phosphatase (38-126) U/L Total Creatine Kinase (35-230) U/L CK-MB (CK-2) (0.0-3.6) ng/mL CK-MB (CK-2) % (2.5-3.0) % Troponin I ng/mL Total Protein (5.8-8.3) g/dL Albumin (3.0-4.8) g/dL Globulin gm/dL Albumin/Globulin Ratio (1.1-1.8) Laboratory Results - last 24 hr 06/07/18 06/09/18 06/09/18 14:00 05:00 05:25 WBC 13.8 H RBC 3.93 Hgb 12.9 L Hct 39.3 L MCV 100.0 MCH 32.8 MCHC 32.8 RDW 13.6 Plt Count 195 MPV 9.8 Gran % 72.0 H Lymph % (Auto) 18.3 L Rolette % (Auto) 9.2 H Eos % (Auto) 0.4 L Baso % (Auto) 0.1 Gran # 9.90 H Lymph # (Auto) 2.5 Rolette # (Auto) 1.3 H Eos # (Auto) 0.1 Baso # (Auto) 0.02 pCO2 30 L pO2 78.0 L HCO3 19.0 L ABG pH 7.41 ABG Total CO2 19.9 L ABG O2 Saturation 97.7 ABG O2 Content 15.7 ABG Base Excess -4.6 L ABG Hemoglobin 11.7 ABG Carboxyhemoglobin 1.8 H POC ABG HHb (Measured) 2.2 ABG Methemoglobin 0.8 ABG O2 Capacity 16.1 Hgb O2 Saturation 95.2 FiO2 50.0 Sodium Potassium Chloride Carbon Dioxide Anion Gap BUN Creatinine Est GFR ( Amer) Est GFR (Non-Af Amer) Random Glucose Hemoglobin A1c 5.8 Calcium Magnesium Total Bilirubin AST ALT Alkaline Phosphatase Total Creatine Kinase CK-MB (CK-2) CK-MB (CK-2) % Troponin I Total Protein Albumin Globulin Albumin/Globulin Ratio 06/09/18 05:25 WBC RBC Hgb Hct MCV MCH MCHC RDW Plt Count MPV Gran % Lymph % (Auto) Rolette % (Auto) Eos % (Auto) Baso % (Auto) Gran # Lymph # (Auto) Rolette # (Auto) Eos # (Auto) Baso # (Auto) pCO2 pO2 HCO3 ABG pH ABG Total CO2 ABG O2 Saturation ABG O2 Content ABG Base Excess ABG Hemoglobin ABG Carboxyhemoglobin POC ABG HHb (Measured) ABG Methemoglobin ABG O2 Capacity Hgb O2 Saturation FiO2 Sodium 142 Potassium 4.3 Chloride 113 H Carbon Dioxide 22 Anion Gap 11 BUN 8 Creatinine 0.6 L Est GFR ( Amer) > 60 Est GFR (Non-Af Amer) > 60 Random Glucose 79 Hemoglobin A1c Calcium 8.6 Magnesium 2.1 Total Bilirubin 0.6 AST 72 H ALT 41 Alkaline Phosphatase 59 Total Creatine Kinase 2702 H CK-MB (CK-2) 5.3 H CK-MB (CK-2) % 0.2 L Troponin I 0.02 D Total Protein 6.5 Albumin 3.6 Globulin 2.9 Albumin/Globulin Ratio 1.3 Radiology Impressions: Radiology Impressions Chest X-Ray 06/08/18 08:31 IMPRESSION: No active disease. EKG/Cardiology Studies: Cardiology / EKG Studies 06/09/18 04:55 ELECTROCARDIOGRAM Stat Comment: Reason For Exam: bradycardia Fingerstick Blood Sugar Results: 246 <Ranjit Hampton - Last Filed: 06/09/18 12:32> CCU Objective - Vital Signs / Intake & Output Vital Signs (Last 4 hours): Vital Signs Temp Pulse Resp Pulse Ox 06/09/18 08:54 97.3 F L 59 L 15 99 06/09/18 08:53 97.3 F L 59 L 15 99 06/09/18 08:52 97.3 F L 58 L 15 100 06/09/18 08:51 97.3 F L 58 L 15 100 06/09/18 08:50 97.3 F L 58 L 15 100 06/09/18 08:49 97.3 F L 57 L 15 100 06/09/18 08:48 97.3 F L 59 L 15 100 06/09/18 08:47 97.3 F L 60 15 100 06/09/18 08:46 97.2 F L 61 15 100 06/09/18 08:45 97.3 F L 59 L 15 100 06/09/18 08:44 97.3 F L 63 15 100 06/09/18 08:43 97.2 F L 55 L 15 100 06/09/18 08:42 97.2 F L 57 L 15 100 06/09/18 08:41 97.2 F L 57 L 16 99 06/09/18 08:40 97.2 F L 58 L 15 99 06/09/18 08:39 97.2 F L 57 L 15 100 06/09/18 08:38 97.3 F L 59 L 15 99 06/09/18 08:37 97.3 F L 60 15 100 06/09/18 08:36 97.3 F L 62 15 100 06/09/18 08:35 97.2 F L 67 15 100 06/09/18 08:34 97.2 F L 57 L 15 100 06/09/18 08:33 97.2 F L 56 L 15 100 06/09/18 08:32 97.2 F L 57 L 15 100 06/09/18 08:31 97.2 F L 57 L 15 100 06/09/18 08:30 97.2 F L 56 L 15 99 06/09/18 08:29 97.2 F L 57 L 15 99 06/09/18 08:28 97.2 F L 57 L 15 99 06/09/18 08:27 97.2 F L 57 L 15 99 06/09/18 08:26 97.2 F L 56 L 15 99 06/09/18 08:25 97.2 F L 56 L 15 99 Intake and Output (Last 8hrs): Intake & Output 06/08/18 06/09/18 06/09/18 22:59 06:59 14:59 Intake Total 1700 1789 Output Total 900 1000 Balance 800 789 Weight 151 lb 3.2 oz Intake: IV 1700 1789 Left Forearm 1489 Right Forearm 400 Right Hand 1200 Oral 0 0 Output: Gastric Amount 200 Stomach 200 Urine 900 500 Urethral ([place]) 900 500 Other 300 Other: # Bowel Movements 0 - Medications Active Medications: Active Medications Generic Name Dose Route Start Last Admin Trade Name Freq PRN Reason Stop Dose Admin Acetaminophen 650 mg 06/06/18 17:21 06/09/18 00:03 Tylenol 650 Mg Supp RC 650 mg Q4H PRN Administration Fever >100.4 F Aspirin 325 mg 06/09/18 11:30 Aspirin NG DAILY JENNIFER Carvedilol 3.125 mg 06/09/18 10:32 Coreg PO BID JENNIFER Propofol 1,000 mg in 100 mls @ 2.041 mls/hr 06/06/18 13:44 06/09/18 06:36 Diprivan IV 45 mcg/kg/min .Q24H PRN 18.371 mls/hr TITRATE PER MD ORDER Administration Protocol 5 MCG/KG/MIN Midazolam 100 mg/100ml in NS 100 mg in 100 mls @ 5 mls/hr 06/06/18 14:34 06/09/18 01:01 Midazolam 100 Mg/100ml In Ns IV 6 mg/hr .Q20H PRN 6 mls/hr Agitation Administration Protocol 5 MG/HR Levetiracetam 500 mg in 100 mls @ 460 mls/hr 06/07/18 22:00 06/09/18 10:23 Keppra 500mg Ivpb IV 460 mls/hr Q12 JENNIFER Administration Acetaminophen 1,000 mg in 100 mls @ 400 mls/hr 06/07/18 19:53 06/07/18 22:04 Ofirmev IVPB 06/09/18 19:54 400 mls/hr Q6H PRN Administration Temperature Sodium Chloride 1,000 mls @ 150 mls/hr 06/09/18 10:21 Sodium Chloride 0.9% IV .Q6H40M JENNIFER Lorazepam 4 mg 06/06/18 19:33 06/06/18 23:36 Ativan IVP 4 mg ONCE PRN Administration prior to CT Protocol Losartan Potassium 12.5 mg 06/09/18 10:33 Cozaar PO DAILY JENNIFER Pantoprazole Sodium 40 mg 06/10/18 10:00 Protonix Inj IVP DAILY JENNIFER Thiamine HCl 100 mg 06/08/18 14:15 06/09/18 10:26 Vitamin B1 Tab NG 100 mg DAILY JENNIFER Administration - Patient Studies Lab Studies: Microbiology Studies 06/06/18 17:45 Blood Culture - Preliminary Blood NO GROWTH AFTER 48 HOURS 06/06/18 17:30 Blood Culture - Preliminary Blood NO GROWTH AFTER 48 HOURS 06/06/18 18:50 Urine Culture - Final Urine,[place] No Growth (<1,000 CFU/ML) Lab Studies 06/09/18 06/09/18 06/09/18 Range/Units 05:25 05:25 05:00 WBC 13.8 H (4.5-11.0) 10^3/uL RBC 3.93 (3.5-6.1) 10^6/uL Hgb 12.9 L (14.0-18.0) g/dL Hct 39.3 L (42.0-52.0) % MCV 100.0 (80.0-105.0) fl MCH 32.8 (25.0-35.0) pg MCHC 32.8 (31.0-37.0) g/dl RDW 13.6 (11.5-14.5) % Plt Count 195 (120.0-450.0) 10^3/uL MPV 9.8 (7.0-11.0) fl Gran % 72.0 H (50.0-68.0) % Lymph % (Auto) 18.3 L (22.0-35.0) % Rolette % (Auto) 9.2 H (1.0-6.0) % Eos % (Auto) 0.4 L (1.5-5.0) % Baso % (Auto) 0.1 (0.0-3.0) % Gran # 9.90 H (1.4-6.5) Lymph # (Auto) 2.5 (1.2-3.4) Rolette # (Auto) 1.3 H (0.1-0.6) Eos # (Auto) 0.1 (0.0-0.7) Baso # (Auto) 0.02 (0.0-2.0) K/mm3 pCO2 30 L (35-45) mm/Hg pO2 78.0 L (80-100) mm/Hg HCO3 19.0 L (21-28) mmol/L ABG pH 7.41 (7.35-7.45) ABG Total CO2 19.9 L (22-28) mmol.L ABG O2 Saturation 97.7 (95-98) % ABG O2 Content 15.7 (15-23) ML/dl ABG Base Excess -4.6 L (-2.0-3.0) mmol/L ABG Hemoglobin 11.7 (11.7-17.4) g/dL ABG Carboxyhemoglobin 1.8 H (0.5-1.5) % POC ABG HHb (Measured) 2.2 (0-5) % ABG Methemoglobin 0.8 (0.0-3.0) % ABG O2 Capacity 16.1 (16-24) mL/dl Hgb O2 Saturation 95.2 (95.0-98.0) % FiO2 50.0 % Sodium 142 (132-148) mmol/L Potassium 4.3 (3.6-5.0) mmol/L Chloride 113 H (98-107) mmol/L Carbon Dioxide 22 (21-33) mmol/L Anion Gap 11 (10-20) BUN 8 (7-21) mg/dL Creatinine 0.6 L (0.8-1.5) mg/dl Est GFR ( Amer) > 60 Est GFR (Non-Af Amer) > 60 Random Glucose 79 (70-110) mg/dL Calcium 8.6 (8.4-10.5) mg/dL Magnesium 2.1 (1.7-2.2) mg/dL Total Bilirubin 0.6 (0.2-1.3) mg/dL AST 72 H (17-59) U/L ALT 41 (7-56) U/L Alkaline Phosphatase 59 (38-126) U/L Total Creatine Kinase 2702 H (35-230) U/L CK-MB (CK-2) 5.3 H (0.0-3.6) ng/mL CK-MB (CK-2) % 0.2 L (2.5-3.0) % Troponin I 0.02 D ng/mL Total Protein 6.5 (5.8-8.3) g/dL Albumin 3.6 (3.0-4.8) g/dL Globulin 2.9 gm/dL Albumin/Globulin Ratio 1.3 (1.1-1.8) Laboratory Results - last 24 hr 06/09/18 06/09/18 06/09/18 05:00 05:25 05:25 WBC 13.8 H RBC 3.93 Hgb 12.9 L Hct 39.3 L MCV 100.0 MCH 32.8 MCHC 32.8 RDW 13.6 Plt Count 195 MPV 9.8 Gran % 72.0 H Lymph % (Auto) 18.3 L Rolette % (Auto) 9.2 H Eos % (Auto) 0.4 L Baso % (Auto) 0.1 Gran # 9.90 H Lymph # (Auto) 2.5 Rolette # (Auto) 1.3 H Eos # (Auto) 0.1 Baso # (Auto) 0.02 pCO2 30 L pO2 78.0 L HCO3 19.0 L ABG pH 7.41 ABG Total CO2 19.9 L ABG O2 Saturation 97.7 ABG O2 Content 15.7 ABG Base Excess -4.6 L ABG Hemoglobin 11.7 ABG Carboxyhemoglobin 1.8 H POC ABG HHb (Measured) 2.2 ABG Methemoglobin 0.8 ABG O2 Capacity 16.1 Hgb O2 Saturation 95.2 FiO2 50.0 Sodium 142 Potassium 4.3 Chloride 113 H Carbon Dioxide 22 Anion Gap 11 BUN 8 Creatinine 0.6 L Est GFR ( Amer) > 60 Est GFR (Non-Af Amer) > 60 Random Glucose 79 Calcium 8.6 Magnesium 2.1 Total Bilirubin 0.6 AST 72 H ALT 41 Alkaline Phosphatase 59 Total Creatine Kinase 2702 H CK-MB (CK-2) 5.3 H CK-MB (CK-2) % 0.2 L Troponin I 0.02 D Total Protein 6.5 Albumin 3.6 Globulin 2.9 Albumin/Globulin Ratio 1.3 Radiology Impressions: Radiology Impressions Chest X-Ray 06/09/18 05:23 IMPRESSION: Stable infiltrate left lower lobe. Stable position of endotracheal tube. Improperly positioned nasogastric tube in the thorax/esophagus. EKG/Cardiology Studies: Cardiology / EKG Studies 06/09/18 04:55 ELECTROCARDIOGRAM Stat Comment: Reason For Exam: bradycardia Assessment/Plan - Assessment and Plan (Free Text) Assessment: Patient seen and examined on rounds with resident, agree with note with following additions/exceptions: Patient is 42yo male with PMHx of marijuana abuse, presented s/p cardiac arrest, VFIB arrest, intubated Currently intubated, sedated, HD stable, comfortable in NAD EEG done, results noted CTH done on presentation no acute itracranial pathology, repeat CT head today NGT NO longer with dark/bloody material, GI following, HH has been stable, OK to start ASA Cardiology following Cardiac Arrest, ROSC GIB Rhabdo Cardiomyopathy Recommend: - cont wiht vent support, low tidal vol ventilation, daily sedation vacation - NO ID Issues - BP control - ECHO results noted; will discuss with cardiology for cardiac cath - monitor electrolytes - monitor HH, thus far has been stable - follow up GI - follow up Neuro - ASA, BB - IVF, increase rate to 150cc/hr - GI ppx - DVT ppx, SCDs - Monitor in MICU Critical care time 30 minutes
--- NOTE | 2018-06-09 09:59 | CP.PCM.PN ---
<Imtiaz Bailey - Last Filed: 06/09/18 09:55> Subjective - Date & Time of Evaluation Date of Evaluation: 06/09/18 Time of Evaluation: 09:00 - Subjective Subjective: PGY-4 GI Fellow Prog Note Pt sedated on vent when seen this AM. Nursing stated only 50 cc of OG output. No BMs noted. Unable to obtain ROS due to clinical condition Objective - Vital Signs/Intake and Output Vital Signs (last 24 hours): Temp Pulse Resp BP Pulse Ox 97.3 F L 59 L 15 113/59 L 99 06/09/18 08:54 06/09/18 08:54 06/09/18 08:54 06/08/18 21:21 06/09/18 08:54 Intake and Output: 06/09/18 06/09/18 06:59 18:59 Intake Total 1889 Output Total 1000 Balance 889 - Medications Medications: Current Medications Acetaminophen (Tylenol 650 Mg Supp) 650 mg RC Q4H PRN PRN Reason: Fever >100.4 F Last Admin: 06/09/18 00:03 Dose: 650 mg Carvedilol (Coreg) 3.125 mg PO BID [facility] Last Admin: 06/08/18 21:21 Dose: 3.125 mg Propofol (Diprivan) 1,000 mg in 100 mls @ 2.041 mls/hr IV .Q24H PRN; Protocol PRN Reason: TITRATE PER MD ORDER Last Admin: 06/09/18 06:36 Dose: 45 mcg/kg/min, 18.371 mls/hr Midazolam 100 mg/100ml in NS (Midazolam 100 Mg/100ml In Ns) 100 mg in 100 mls @ 5 mls/hr IV .Q20H PRN; Protocol PRN Reason: Agitation Last Admin: 06/09/18 01:01 Dose: 6 mg/hr, 6 mls/hr Sodium Chloride (Sodium Chloride 0.9%) 1,000 mls @ 100 mls/hr IV .Q10H [facility] Last Admin: 06/08/18 21:36 Dose: 100 mls/hr Levetiracetam (Keppra 500mg Ivpb) 500 mg in 100 mls @ 460 mls/hr IV Q12 [facility] Last Admin: 06/08/18 21:34 Dose: 460 mls/hr Acetaminophen (Ofirmev) 1,000 mg in 100 mls @ 400 mls/hr IVPB Q6H PRN PRN Reason: Temperature Stop: 06/09/18 19:54 Last Admin: 06/07/18 22:04 Dose: 400 mls/hr Lorazepam (Ativan) 4 mg IVP ONCE PRN; Protocol PRN Reason: prior to CT Last Admin: 06/06/18 23:36 Dose: 4 mg Losartan Potassium (Cozaar) 12.5 mg PO DAILY [facility] Last Admin: 06/08/18 16:37 Dose: 12.5 mg Pantoprazole Sodium (Protonix Inj) 40 mg IVP Q12 [facility] Last Admin: 06/08/18 21:35 Dose: 40 mg Thiamine HCl (Vitamin B1 Tab) 100 mg NG DAILY [facility] Last Admin: 06/08/18 16:38 Dose: 100 mg - Labs Labs: 06/09/18 05:25 06/09/18 05:25 PT 12.4 SECONDS (9.4-12.5) 06/06/18 13:00 INR 1.08 06/06/18 13:00 - Constitutional Appears: Other (Sedated, intubated on vent) - ENT Exam ENT Exam: Mucous Membranes Dry Additional comments: OG in place, intubated - Cardiovascular Exam Cardiovascular Exam: REGULAR RHYTHM, RRR - GI/Abdominal Exam GI & Abdominal Exam: Soft, Normal Bowel Sounds. absent: Bruit, Distended, Firm, Guarding, Rigid, Tenderness, Mass, Organomegaly, Pulsatile Mass Assessment and Plan - Assessment and Plan (Free Text) Assessment: 42 yo WM with seizure activity, cardiac arrest, respiratory failure found to have some bloody output from OG tube. # Bloody OG output, Upper GI Bleed: Vitals and repeat Hgb continue to be stable. Likely due to MW Syndrome given seizure activity and current intubation status (pt was reported agitated and while intubated can raise intrabd pressure). Also could be related to OG trauma. No reported hematemesis per nursing or family prior. Plan: - PPI IV q 12hrs -> Pantoprazole 40 mg IV Daily - Monitor Hgb - Supportive care Thank you for the consult. Will sign off; please call if questions. Pt seen and examined with Dr. Minor; please see attestation for further recs/changes. Imtiaz Bailey, PGY-4 <Sam Minor - Last Filed: 06/09/18 11:23> Objective - Vital Signs/Intake and Output Vital Signs (last 24 hours): Temp Pulse Resp BP Pulse Ox 97.3 F L 59 L 15 113/59 L 99 06/09/18 08:54 06/09/18 08:54 06/09/18 08:54 06/08/18 21:21 06/09/18 08:54 Intake and Output: 06/09/18 06/09/18 06:59 18:59 Intake Total 1889 Output Total 1000 Balance 889 - Medications Medications: Current Medications Acetaminophen (Tylenol 650 Mg Supp) 650 mg RC Q4H PRN PRN Reason: Fever >100.4 F Last Admin: 06/09/18 00:03 Dose: 650 mg Carvedilol (Coreg) 3.125 mg PO BID [facility] Propofol (Diprivan) 1,000 mg in 100 mls @ 2.041 mls/hr IV .Q24H PRN; Protocol PRN Reason: TITRATE PER MD ORDER Last Admin: 06/09/18 06:36 Dose: 45 mcg/kg/min, 18.371 mls/hr Midazolam 100 mg/100ml in NS (Midazolam 100 Mg/100ml In Ns) 100 mg in 100 mls @ 5 mls/hr IV .Q20H PRN; Protocol PRN Reason: Agitation Last Admin: 06/09/18 01:01 Dose: 6 mg/hr, 6 mls/hr Levetiracetam (Keppra 500mg Ivpb) 500 mg in 100 mls @ 460 mls/hr IV Q12 [facility] Last Admin: 06/09/18 10:23 Dose: 460 mls/hr Acetaminophen (Ofirmev) 1,000 mg in 100 mls @ 400 mls/hr IVPB Q6H PRN PRN Reason: Temperature Stop: 06/09/18 19:54 Last Admin: 06/07/18 22:04 Dose: 400 mls/hr Sodium Chloride (Sodium Chloride 0.9%) 1,000 mls @ 150 mls/hr IV .Q6H40M [facility] Lorazepam (Ativan) 4 mg IVP ONCE PRN; Protocol PRN Reason: prior to CT Last Admin: 06/06/18 23:36 Dose: 4 mg Losartan Potassium (Cozaar) 12.5 mg PO DAILY [facility] Pantoprazole Sodium (Protonix Inj) 40 mg IVP DAILY [facility] Thiamine HCl (Vitamin B1 Tab) 100 mg NG DAILY [facility] Last Admin: 06/09/18 10:26 Dose: 100 mg - Labs Labs: 06/09/18 05:25 06/09/18 05:25 PT 12.4 SECONDS (9.4-12.5) 06/06/18 13:00 INR 1.08 06/06/18 13:00 Attending/Attestation - Attestation I have personally seen and examined this patient.: Yes I have fully participated in the care of the patient.: Yes I have reviewed all pertinent clinical information, including history, physical exam and plan: Yes Notes (Text): 06/09/18 11:20 I have seen and examined patient with GI fellow. No acute events overnight, he remains intubated and sedated in critical care unit. Minimal output via OGT (approximately 50 cc) over past 24 hours. No bowel movements. Altered mental status Seizure Cardiac arrest Respiratory failure, s/p intubation Anemia, bloody output via OGT - H/H remains stable without evidence of ongoing overt bleeding - May begin tube feeding - Continue with PPI therapy - Follow up cardiology and neurology recommendations - Currently no indication for GI intervention, would suggest additional follow up after neurologic and cardiac issues have resolved. Will sign off case, please reconsult as necessary, thank you. Case discussed with patient's sister at bedside and ICU team.
--- NOTE | 2018-06-09 10:07 | RAD ---
Date of service: 06/09/2018 HISTORY: routine COMPARISON: No prior. FINDINGS: LUNGS: Retrocardiac consolidative changes. PLEURA: No significant pleural effusion identified, no pneumothorax apparent. CARDIOVASCULAR: No atherosclerotic calcification present Normal. OSSEOUS STRUCTURES: No significant abnormalities. VISUALIZED UPPER ABDOMEN: Normal. OTHER FINDINGS: Stable position of endotracheal tube. Poorly positioned nasogastric tube. The tip is at least 5 cm from the esophagogastric junction. IMPRESSION: Stable infiltrate left lower lobe. Stable position of endotracheal tube. Improperly positioned nasogastric tube in the thorax/esophagus.
[2018-06-09] MEDS: levETIRAcetam 500mg IVPB 500 MG/100 ML BAG IV SCH ×2 (10:23→22:29)
--- NOTE | 2018-06-09 13:12 | CP.PCM.PN ---
<Maddy Burgos - Last Filed: 06/09/18 13:32> Subjective - Date & Time of Evaluation Date of Evaluation: 06/09/18 Time of Evaluation: 08:00 - Subjective Subjective: Maddy Burgos PGY1 Hospital Progress Note Patient seen and examined at bedside. Tmax of 100.6F at midnight, no other acute events reported overnight. Continues to be intubated and sedated. Unable to obtain ROS due to patient status. Repeat head CT today, then trial of sedation vacation. Possible cardiac cath tomorrow. Objective - Vital Signs/Intake and Output Vital Signs (last 24 hours): Temp Pulse Resp BP Pulse Ox 97.3 F L 59 L 15 113/59 L 99 06/09/18 08:54 06/09/18 08:54 06/09/18 08:54 06/08/18 21:21 06/09/18 08:54 Intake and Output: 06/09/18 06/09/18 06:59 18:59 Intake Total 1889 Output Total 1000 Balance 889 - Medications Medications: Current Medications Acetaminophen (Tylenol 650 Mg Supp) 650 mg RC Q4H PRN PRN Reason: Fever >100.4 F Last Admin: 06/09/18 00:03 Dose: 650 mg Aspirin (Aspirin) 325 mg NG DAILY [facility] Carvedilol (Coreg) 3.125 mg PO BID [facility] Propofol (Diprivan) 1,000 mg in 100 mls @ 2.041 mls/hr IV .Q24H PRN; Protocol PRN Reason: TITRATE PER MD ORDER Last Admin: 06/09/18 06:36 Dose: 45 mcg/kg/min, 18.371 mls/hr Midazolam 100 mg/100ml in NS (Midazolam 100 Mg/100ml In Ns) 100 mg in 100 mls @ 5 mls/hr IV .Q20H PRN; Protocol PRN Reason: Agitation Last Admin: 06/09/18 01:01 Dose: 6 mg/hr, 6 mls/hr Levetiracetam (Keppra 500mg Ivpb) 500 mg in 100 mls @ 460 mls/hr IV Q12 [facility] Last Admin: 06/09/18 10:23 Dose: 460 mls/hr Acetaminophen (Ofirmev) 1,000 mg in 100 mls @ 400 mls/hr IVPB Q6H PRN PRN Reason: Temperature Stop: 06/09/18 19:54 Last Admin: 06/07/18 22:04 Dose: 400 mls/hr Sodium Chloride (Sodium Chloride 0.9%) 1,000 mls @ 150 mls/hr IV .Q6H40M [facility] Lorazepam (Ativan) 4 mg IVP ONCE PRN; Protocol PRN Reason: prior to CT Last Admin: 06/06/18 23:36 Dose: 4 mg Losartan Potassium (Cozaar) 12.5 mg PO DAILY [facility] Pantoprazole Sodium (Protonix Inj) 40 mg IVP DAILY [facility] Thiamine HCl (Vitamin B1 Tab) 100 mg NG DAILY [facility] Last Admin: 06/09/18 10:26 Dose: 100 mg - Labs Labs: 06/09/18 05:25 06/09/18 05:25 PT 12.4 SECONDS (9.4-12.5) 06/06/18 13:00 INR 1.08 06/06/18 13:00 - Additional Findings Additional findings: - Constitutional Appears: No Acute Distress, Agitated - Head Exam Head Exam: ATRAUMATIC, NORMOCEPHALIC - Eye Exam Eye Exam: Normal appearance. absent: Scleral icterus - ENT Exam Additional comments: OG tube with dark bloody output ~50cc - Respiratory Exam Respiratory Exam: Clear to Ausculation Bilateral, NORMAL BREATHING PATTERN, intubated. absent: Wheezes, Respiratory Distress - Cardiovascular Exam Cardiovascular Exam: REGULAR RHYTHM, +S1, +S2. absent: Murmur - GI/Abdominal Exam GI & Abdominal Exam: Soft, Hypoactive Bowel Sounds. absent: Distended, Firm, Guarding, Rigid - Exam Additional comments: lee in place with yellow urine - Extremities Exam Extremities Exam: Normal Capillary Refill. absent: Pedal Edema - Neurological Exam Neurological Exam: sedated - Skin Skin Exam: Dry, Intact Assessment and Plan - Assessment and Plan (Free Text) Assessment: 42 year old male with a past medical history of cannabis hyperemesis syndrome who came in s/p cardiac arrest and obtained ROSC with CPR and defibrillation, now admitted to ICU for management of respiratory failure and metabolic acidosis. Plan: Cardiac arrest s/p chest compression -s/p intubation and sedation on propofol and versed -will try sedation vacation today -possible cardiac cath tomorrow -EKG shows recent anterolateral M.I. -ECHO shows EF 26%, akinetic apex, mild TR, mild/mod pulm HTN -ICU and cardiology consulted -Cardiology consulted -Losartan 12.5 mg PO daily Seizures -CT head shows no acute intracranial abnormalities -repeat CT head today -UDS positive for cannabinoids, otherwise unremarkable -VEEG shows moderate to severe background slowing, no seizures recorded -Neurology consulted -Keppra 500 mg IV Q12H GI bleed -OG tube drained ~50cc dark red fluid -Hgb stable, 12.9 today -monitor and transfuse as needed -hold aspirin -GI consulted -Protonix 40 mg IV Q12 -NS increased to 150cc/hr today, f/u AM CPK Metabolic acidosis -resolved -bicarb drip discontinued PPX -SCD, protonix Patient seen and case discussed with attending, Dr. Berman <Yoko Berman - Last Filed: 06/09/18 15:32> Objective - Vital Signs/Intake and Output Vital Signs (last 24 hours): Temp Pulse Resp BP Pulse Ox 98.2 F 63 16 113/59 L 100 06/09/18 13:00 06/09/18 13:00 06/09/18 13:00 06/08/18 21:21 06/09/18 12:59 Intake and Output: 06/09/18 06/09/18 06:59 18:59 Intake Total 1889 Output Total 1000 Balance 889 - Medications Medications: Current Medications Acetaminophen (Tylenol 650 Mg Supp) 650 mg RC Q4H PRN PRN Reason: Fever >100.4 F Last Admin: 06/09/18 00:03 Dose: 650 mg Aspirin (Aspirin) 325 mg NG DAILY [facility] Last Admin: 06/09/18 15:23 Dose: 325 mg Carvedilol (Coreg) 3.125 mg PO BID [facility] Propofol (Diprivan) 1,000 mg in 100 mls @ 2.041 mls/hr IV .Q24H PRN; Protocol PRN Reason: TITRATE PER MD ORDER Last Admin: 06/09/18 06:36 Dose: 45 mcg/kg/min, 18.371 mls/hr Midazolam 100 mg/100ml in NS (Midazolam 100 Mg/100ml In Ns) 100 mg in 100 mls @ 5 mls/hr IV .Q20H PRN; Protocol PRN Reason: Agitation Last Admin: 06/09/18 01:01 Dose: 6 mg/hr, 6 mls/hr Levetiracetam (Keppra 500mg Ivpb) 500 mg in 100 mls @ 460 mls/hr IV Q12 [facility] Last Admin: 06/09/18 10:23 Dose: 460 mls/hr Acetaminophen (Ofirmev) 1,000 mg in 100 mls @ 400 mls/hr IVPB Q6H PRN PRN Reason: Temperature Stop: 06/09/18 19:54 Last Admin: 06/07/18 22:04 Dose: 400 mls/hr Sodium Chloride (Sodium Chloride 0.9%) 1,000 mls @ 150 mls/hr IV .Q6H40M [facility] Lorazepam (Ativan) 4 mg IVP ONCE PRN; Protocol PRN Reason: prior to CT Last Admin: 06/06/18 23:36 Dose: 4 mg Losartan Potassium (Cozaar) 12.5 mg PO DAILY [facility] Pantoprazole Sodium (Protonix Inj) 40 mg IVP DAILY [facility] Thiamine HCl (Vitamin B1 Tab) 100 mg NG DAILY [facility] Last Admin: 06/09/18 10:26 Dose: 100 mg - Labs Labs: 06/09/18 05:25 06/09/18 05:25 PT 12.4 SECONDS (9.4-12.5) 06/06/18 13:00 INR 1.08 06/06/18 13:00 Attending/Attestation - Attestation I have personally seen and examined this patient.: Yes I have fully participated in the care of the patient.: Yes I have reviewed all pertinent clinical information, including history, physical exam and plan: Yes Notes (Text): 06/09/18 15:28 42 year old male with past medical history of cannabis use who presented s/p cardiac arrest. Obtained ROSC with CPR and defibrillation for vtach on the field. In the ER he was intubated for airway protection and agonal breathing. He was found to have seizures and started on keppra, versed and proprofol. CT head was negative. VEEG was reviewed as above. Neurology is following. Repeat CT head today negative as well. EKG showed some ST changes in anterolateral leads. Initial troponin was negative however repeat troponins were 0.69 and 0.42. EKGs were reviewed with code heart typesetter perforator operator who recommended to correct electrolytes and acidosis. Started on iv bicarb and potassium supplementation with improvement of acidosis and hypokalemia. Cardiology is following. Echocardiogram was reviewed as above. Patient was started on coreg and cozaar. Patient is not on aspirin secondary to coffee ground emesis from OGT. He is not on statin secondary to elevated CPK (fluids was increased). Coreg is held today secondary to episode of bradycardia earlier this morning. Consider cardiac cath as per cardiology once cleared by neurology/pulmonary. He is on protonix and GI is following. Yoko Berman MD Hospitalist.
--- NOTE | 2018-06-09 13:56 | CT ---
Date of service: 06/09/2018 PROCEDURE: CT HEAD WITHOUT CONTRAST. HISTORY: Cardiac arrest COMPARISON: 06/06/2018 CT head TECHNIQUE: Axial computed tomography images were obtained through the head/brain without intravenous contrast. Supplemental Coronal and Sagittal projections created and reviewed. Radiation dose: Total exam DLP = 924.48 mGy-cm. This CT exam was performed using one or more of the following dose reduction techniques: Automated exposure control, adjustment of the mA and/or kV according to patient size, and/or use of iterative reconstruction technique. FINDINGS: HEMORRHAGE: No intracranial hemorrhage. BRAIN: No mass effect or edema. No atrophy or chronic microvascular ischemic changes. VENTRICLES: Unremarkable. No hydrocephalus. CALVARIUM: Unremarkable. PARANASAL SINUSES: Unremarkable as visualized. No significant inflammatory changes. MASTOID AIR CELLS: Unremarkable as visualized. No inflammatory changes. OTHER FINDINGS: None. IMPRESSION: No acute intracranial abnormalities. No significant findings to account for the clinical presentation. No significant interval change compared to the prior examination(s).
--- NOTE | 2018-06-09 18:44 | CARD ---
APPROVED REPORT Date of service: 06/09/2018 EKG Measurement Heart [id number] <Conclusion> Sinus rhythm with marked sinus arrhythmia Possible Left atrial enlargement Anterolateral infarct, age undetermined Abnormal ECG
[2018-06-09] MEDS: Sodium Chloride 0.9% 1,000 ML IV SCH (22:30)
[2018-06-10] MEDS: Propofol 10 mg/ml 1,000 MG/100 ML VIAL IV PRN ×6 (00:12→23:18)
[2018-06-10] MEDS: Sodium Chloride 0.9% 1,000 ML IV SCH (05:15)
[2018-06-10 05:36] LABS: ARTERIAL BLOOD GAS HEMOGLOBIN 13.1 g/dL (11.7-17.4); ARTERIAL BLOOD GAS O2 CAPACITY 18.4 mL/dl (16-24); ARTERIAL BLOOD GAS O2 CONTENT 18.4 ML/dl (15-23); ARTERIAL BLOOD GAS O2 SAT 100.2 % (95-98); ARTERIAL BLOOD GAS PCO2 38 mm/Hg (35-45); ARTERIAL BLOOD GAS PH 7.33 (7.35-7.45); ARTERIAL BLOOD GAS TCO2 21.2 mmol.L (22-28)
[2018-06-10] MEDS: Midazolam 100 mg/100ml in NS 100 MG/100 ML SOL IV PRN (06:16)
[2018-06-10 06:41] LABS: BASO # 0.02 K/mm3 (0.0-2.0); BASO % 0.2 % (0.0-3.0); EOS # 0.1 (0.0-0.7); EOS % 1.2 % (1.5-5.0); GRAN # 5.7 (1.4-6.5); GRAN % 63.5 % (50.0-68.0); LYMPH # 2.1 (1.2-3.4); LYMPH % 23.6 % (22.0-35.0); MEAN CELL VOLUME 99.1 fl (80.0-105.0); MEAN CORPUSCULAR HEMOGLOBIN 32.5 pg (25.0-35.0); MEAN CORPUSCULAR HGB CONC 32.8 g/dl (31.0-37.0); MEAN PLATELET VOLUME 9.4 fl (7.0-11.0); MONO % 11.5 % (1.0-6.0); RBC 3.29 10^6/uL (3.5-6.1); RED CELL DISTRIBUTION WIDTH 13.5 % (11.5-14.5)
[2018-06-10 06:43] LABS: HEMOGLOBIN 10.7 g/dL (14.0-18.0)
--- NOTE | 2018-06-10 06:49 | CP.CCUPN ---
CCU Subjective - Physician Review Subjective (Free Text): Mervin Moreland, PGY-1 Progress Note for ICU Patient seen and evaluated at bedside. Patient lying in bed in no acute distress. Patient was able to follow commands but was unable to verbalize further ROS at time of evaluation due to intubation. Soft upper extremity restraints in place to prevent pulling of the endotracheal tube. CCU Objective - Vital Signs / Intake & Output Vital Signs (Last 4 hours): Vital Signs Pulse 06/10/18 03:52 58 L Intake and Output (Last 8hrs): Intake & Output 06/09/18 06/09/18 06/10/18 14:59 22:59 06:59 Intake Total 218 300 Output Total 425 Balance -207 300 Intake: IV 218 300 Oral 0 Output: Urine 425 Urethral (Goodrich) 425 Other: # Bowel Movements 0 - Physical Exam Other physical findings (Free Text): - Constitutional Appears: Well, No Acute Distress - Head Exam Head Exam: ATRAUMATIC, NORMAL INSPECTION, NORMOCEPHALIC - Eye Exam Eye Exam: pinpoint pupils bilaterally, responsive to light - ENT Exam ENT Exam: Mucous Membranes Moist, OG tube and ETT in place - Neck Exam Neck exam: Positive for: Normal Inspection - Respiratory Exam Respiratory Exam: Clear to Auscultation Bilateral, NORMAL BREATHING PATTERN - Cardiovascular Exam Cardiovascular Exam: REGULAR RHYTHM, +S1, +S2. absent: Gallop, JVD, Rubs - GI/Abdominal Exam GI & Abdominal Exam: Normal Bowel Sounds, Soft. absent: Tenderness - Neurological Exam Neurological exam: Altered mental status, GCS 3T - Psychiatric Exam Psychiatric exam: Normal Affect, Normal Mood - Skin Skin Exam: Dry, Intact, Normal Color, Warm - Medications Active Medications: Active Medications Generic Name Dose Route Start Last Admin Trade Name Freq PRN Reason Stop Dose Admin Acetaminophen 650 mg 06/06/18 17:21 06/09/18 00:03 Tylenol 650 Mg Supp RC 650 mg Q4H PRN Administration Fever >100.4 F Aspirin 325 mg 06/09/18 11:30 06/09/18 15:23 Aspirin NG 325 mg DAILY [facility]ENN[facility]ER Administration Carvedilol 3.125 mg 06/09/18 10:32 06/09/18 20:22 Coreg PO 3.125 mg BID JENN[facility]ER Administration Propofol 1,000 mg in 100 mls @ 2.041 mls/hr 06/06/18 13:44 06/10/18 06:15 Diprivan IV 40 mcg/kg/min .Q24H PRN 16.329 mls/hr TITRATE PER MD ORDER Titration Protocol 5 MCG/KG/MIN Midazolam 100 mg/100ml in NS 100 mg in 100 mls @ 5 mls/hr 06/06/18 14:34 12/12/01 06:16 Midazolam 100 Mg/100ml In Ns IV 6 mg/hr .Q20H PRN 6 mls/hr Agitation Administration Protocol 5 MG/HR Levetiracetam 500 mg in 100 mls @ 460 mls/hr 06/07/18 22:00 06/09/18 22:29 Keppra 500mg Ivpb IV 460 mls/hr Q12 JENN[facility]ER Administration Sodium Chloride 1,000 mls @ 150 mls/hr 06/09/18 10:21 06/10/18 05:15 Sodium Chloride 0.9% IV 150 mls/hr .Q6H40M [facility]ENN[facility]ER Administration Lorazepam 4 mg 06/06/18 19:33 06/06/18 23:36 Ativan IVP 4 mg ONCE PRN Administration prior to CT Protocol Losartan Potassium 12.5 mg 06/09/18 10:33 Cozaar PO DAILY [facility] Pantoprazole Sodium 40 mg 06/10/18 10:00 Protonix Inj IVP DAILY [facility] Thiamine HCl 100 mg 06/08/18 14:15 06/09/18 10:26 Vitamin B1 Tab NG 100 mg DAILY [facility]ER Administration - Patient Studies Lab Studies: Microbiology Studies 06/06/18 17:45 Blood Culture - Preliminary Blood NO GROWTH AFTER 3 DAYS 06/06/18 17:30 Blood Culture - Preliminary Blood NO GROWTH AFTER 3 DAYS 06/06/18 18:50 Gram Stain - Final Trachasp Sputum Culture - Final NORMAL ORAL STEPHANIE Lab Studies 06/10/18 06/09/18 06/09/18 Range/Units 05:25 05:25 05:00 pCO2 38 30 L (35-45) mm/Hg pO2 199.0 H 78.0 L (80-100) mm/Hg HCO3 20.0 L 19.0 L (21-28) mmol/L ABG pH 7.33 L 7.41 (7.35-7.45) ABG Total CO2 21.2 L 19.9 L (22-28) mmol.L ABG O2 Saturation 100.2 H 97.7 (95-98) % ABG O2 Content 18.4 15.7 (15-23) ML/dl ABG Base Excess -5.4 L -4.6 L (-2.0-3.0) mmol/L ABG Hemoglobin 13.1 11.7 (11.7-17.4) g/dL ABG Carboxyhemoglobin 1.8 H 1.8 H (0.5-1.5) % POC ABG HHb (Measured) -0.2 L 2.2 (0-5) % ABG Methemoglobin 0.9 0.8 (0.0-3.0) % ABG O2 Capacity 18.4 16.1 (16-24) mL/dl Hgb O2 Saturation 97.5 95.2 (95.0-98.0) % FiO2 50.0 50.0 % CK-MB (CK-2) 5.3 H (0.0-3.6) ng/mL CK-MB (CK-2) % 0.2 L (2.5-3.0) % Laboratory Results - last 24 hr 06/09/18 06/09/18 06/10/18 05:00 05:25 05:25 pCO2 30 L 38 pO2 78.0 L 199.0 H HCO3 19.0 L 20.0 L ABG pH 7.41 7.33 L ABG Total CO2 19.9 L 21.2 L ABG O2 Saturation 97.7 100.2 H ABG O2 Content 15.7 18.4 ABG Base Excess -4.6 L -5.4 L ABG Hemoglobin 11.7 13.1 ABG Carboxyhemoglobin 1.8 H 1.8 H POC ABG HHb (Measured) 2.2 -0.2 L ABG Methemoglobin 0.8 0.9 ABG O2 Capacity 16.1 18.4 Hgb O2 Saturation 95.2 97.5 FiO2 50.0 50.0 CK-MB (CK-2) 5.3 H CK-MB (CK-2) % 0.2 L Radiology Impressions: Radiology Impressions Head CT 06/08/18 09:54 IMPRESSION: No acute intracranial abnormalities. No significant findings to account for the clinical presentation. No significant interval change compared to the prior examination(s). Chest X-Ray 06/09/18 05:23 IMPRESSION: Stable infiltrate left lower lobe. Stable position of endotracheal tube. Improperly positioned nasogastric tube in the thorax/esophagus. Fingerstick Blood Sugar Results: 246 Review of Systems - Review of Systems Review of Systems: 12 point ROS unable to be ascertained due to altered mental status. Assessment/Plan - Assessment and Plan (Free Text) Assessment: 42 year old male with a past medical history of cannabis hyperemesis syndrome who came in s/p cardiac arrest and obtained ROSC with CPR and defibrillation s/p episodes of pulseless v-tach and V-fib. Patient is admitted to ICU for management of respiratory failure on vent. Sedation had been initially discontinued but restarted in advance of cardiac cath later today. Periods of sinus bradycardia overnight. Restraints in place to prevent patient from removing endotracheal tube. Neuro Acute encephalopathy, AMS - rule out metabolic vs. toxic - 06/06/2018 CT Head without contrast No acute intracranial abnormalities - 06/08/2018 CT head without contrast- showed no acute intracranial abnormalities - [id number] Seizures - continue on keppra 500mg IV q12 - will continue on versed drip 5mcg/hr & propofol @ 5mcg/kg/min - neurology consulted- appreciate recommendation, video EEG 06/08 results shows moderate to severe background slowing. No seizures and not in status epilepticus, nonspecific diffuse disturbance of cortical activity. Diffuse rae matter dysfunction. - UDS positive for cannabinoids Cardiovascular: Cardiac Arrest s/p ROSC - troponins trending down - 06/08/2018 echocardiogram- LVEF 26%, LV moderately dilated, akinetic apex - cardiology consulted (Dr. Velasco)- appreciate recommendation- continue losartan 12.5 PO daily with holding parameters. Carvedilol 3.125 PO BID on hold, likely in light of bradycardia. - 06/[address] Moon. Loading Plavix given in advance. 4 ROMANA placed, f/u final report. Begin ASA 81, Plavix 75, and Lipitor 40 mg tomorrow. On Integrilin drip. F/U repeat EKG. - elevated LDL and TG Resp: Respiratory Failure s/p Cardiac Arrest, Seizure - currently intubated - continue PRVC [id number] RR15 FiO2 50 PEEP5 - weaning trial and sedation trial daily - CXR 06/10: Stable retrocardiac opacity reflecting atelectasis or infiltrate small pleural effusion not excluded. Remaining lung guillen appear clear. MSK Rhabdomyolysis - CPK elevated~ 2700, repeat CPK 06/10 improved to 1146. F/U repeat in AM - IVF NS discontinued and replaced with D5 @ 50 cc/hr GI GI Hemorrhage - ddx- j carlos keith tear during seizure episode - NPO - protonix 40mg IV daily - GI consulted (Dr. Minor)- H/H remains stable without evidence of ongoing overt bleeding, May begin tube feeding, Continue with PPI therapy, Signed off. - Awaiting RD recs for tube feedings Endo - Periods of hypoglycemia - Two seperate Amps of D50 ordered after episodes of hypoglycemia, continue D5 @ 50 cc/hr - Accuchecks q4 Heme - normocytic anemia - 10.7 from 12.9 yesterday, no evidence of active bleed Ppx - PTX, SCD DRAFT Mervin Moreland, PGY-1
[2018-06-10 06:59] LABS: ALB/GLOB RATIO 1.1 (1.1-1.8); ALT/SGPT 41 U/L (7-56); AST/SGOT 48 U/L (17-59); BLOOD UREA NITROGEN 9 mg/dL (7-21); GFR NON-AFRICAN AMERICAN > 60
--- NOTE | 2018-06-10 07:17 | RAD ---
Date of service: 06/10/2018 HISTORY: Pt is on ventilator. COMPARISON: Portable chest 06/09/2018. FINDINGS: LUNGS: Endotracheal tube appears retracted in the interval terminating 5.6 cm above the johnathan, positioned at or just above the level of clavicles in the mid trachea. Consider advancing 2-3 cm antegrade. Prior nasogastric tube is apparently been removed. Left basilar opacification persists likely atelectasis or infiltrate with limited left pleural effusion not excluded. No right pleural effusion. No pneumothorax bilaterally. PLEURA: As above. CARDIOVASCULAR: No aortic atherosclerotic calcification present. Stable cardiac silhouette. No pulmonary vascular congestion in the interval. OSSEOUS STRUCTURES: No significant abnormalities. VISUALIZED UPPER ABDOMEN: Normal. OTHER FINDINGS: None. IMPRESSION: Stable retrocardiac opacity reflecting atelectasis or infiltrate small pleural effusion not excluded. Remaining lung guillen appear clear. Interval removal of nasogastric tube apparent. ET tube appears retracted in the interval as discussed above. Consider advancing 2-3 cm antegrade into the trachea. Follow-up radiography recommended.
[2018-06-10] MEDS ORDERED: DOBUTamine 500mg/250ml D5W 500 MG/250 ML BAG IV PRN (07:19)
[2018-06-10] MEDS ORDERED: Dextrose 50% SYRINGE Inj (50 ml) IVP ONE ×3 (07:36→16:39)
[2018-06-10 07:51] LABS: CK-MB 1.5 ng/mL (0.0-3.6)
[2018-06-10] MEDS ORDERED: Heparin25000 units/250ml 1/2NS 25,000 UNITS/250 ML BAG IV SCH (08:00)
[2018-06-10 08:40] LABS: INR 1.06; PROTHROMBIN TIME 12.2 SECONDS (9.4-12.5)
[2018-06-10] MEDS: levETIRAcetam 500mg IVPB 500 MG/100 ML BAG IV SCH ×2 (09:07→20:59)
--- NOTE | 2018-06-10 09:58 | PN ---
DATE: 06/10/2018 SUBJECTIVE: This is a 42-year-old gentleman with history of cannabinoid hyperemesis syndrome and migraines who presented to [facility] after cardiac arrest. The patient is seen at bedside. He is intubated. He tolerates so far pressure support trial well with 5/5 with FiO2 of 40%. His rapid shallow breathing index varies between 50 and 80. He is pulling about 400 mL tidal volume. He is following commands and trying to communicate nonverbally. Sedation was off. The IV fluid was switched to D5W. Accu-Chek. The patient is not on pressors, but will be started on dobutamine for ionotropic support. PHYSICAL EXAMINATION: VITAL SIGNS: Heart rate 66, oxygen saturation 99% on 40% FiO2, end-tidal CO2 on the monitor at 32, blood pressure 116/70, temperature 97.5. HEENT: Head and neck atraumatic. The patient is intubated. LUNGS: Clear to auscultation bilaterally. HEART: Regular rate and rhythm. S1, S2 distant. ABDOMEN: Soft, nontender, nondistended. MUSCULOSKELETAL: Trace bilateral pedal and ankle edema. NEUROLOGIC: The patient moves all extremities spontaneously. SKIN: Moist. PSYCH: The patient is alert, awake and following commands. LABORATORY DATA: WBC 9, hemoglobin 10.7, platelet count 215. Sodium 143, potassium 3.6, chloride 114, carbon dioxide 21, BUN 9, creatinine 0.7, glucose 67 (Accu-Chek 59 and he was given 50% dextrose), AST 48, ALT 49, total bilirubin 0.4. ABG today pH 7.33, pCO2 of 38, pO2 of 199, 50% FiO2. DIAGNOSTIC DATA: Chest x-ray, no acute pulmonary disease. Echocardiogram two days ago revealed severe left ventricular systolic dysfunction and left ventricular diastolic dysfunction. MEDICATIONS: Tylenol p.r.n., aspirin, dobutamine, Keppra, Ativan p.r.n., Cozaar 12.5 mg p.o. daily, Protonix, normal saline (held thiamine, Versed held). ASSESSMENT AND PLAN: This is a 42-year-old gentleman who presented with cardiac arrest, likely secondary to heart attack in the setting of severe left ventricular systolic dysfunction. I spoke with Dr. Hernandez today morning. He will not do cardiac catheterization today. He was okay with the patient to be extubated if tolerates weaning protocol as he suggested no need for keeping the patient intubated for the cardiac catheterization which he is planning on doing tomorrow. At present time, we will proceed with aspirin and ionotropic support with dobutamine, Cozaar for afterload reduction. I will leave Plavix and heparin drip up for discretion of Cardiology service as they are on board and has been following the patient for more than two days now. We will proceed with head of bed elevated more than 35 degrees. Oral hygiene, conservative fluid and oxygen management. If the patient tolerated pressure support trial in two hours, we will proceed with ABG and extubation to BiPAP. The patient will remain n.p.o. We will start D5 containing IV fluids to maintain blood glucose within 140-180 range according to night sugar trial. We will proceed with Accu-Chek every 4 hours. We will maintain mean arterial pressure more than 65. Avoid nephrotoxic medication and hyperchloremia. We will try to maintain euglycemia and normothermia. The patient is afebrile and does not have leukocytosis. I have low suspicion for ongoing infection. We will continue with DVT, GI prophylaxis. Of note, the CT head did not reveal any intracranial abnormalities and EEG did not reveal any seizures. The patient is off sedation. Addendum: Dr. Hernandez called again later and suggested proceeding with plavix and TAC. He also adviced that Dr. Moon will evaluate patient for consideration of PCI. Discussed case with Dr. Moon at bedside-->Plavix 600 mg PO bolus given, TAC is held due to patient going for PCI in 2 hours. Meanwhile patient failed PST (RSBI up to 120), put back on PRVC and propofol restarted. Addendum: PCI is done, multiple vessel disease, stented, 3a2b GP inhibitor started, plavix and aspirin will continue. dobutmaine was stopped by cardio service. will repeat weaning trial in am ccm time 40 min Junior Oquendo MD CRYSTAL
[2018-06-10] MEDS ORDERED: Phenylephrine 10 mg/ml Inj ONE (11:22)
[2018-06-10] MEDS ORDERED: Iohexol 350mgl/ml 50 ML ONE (11:23)
[2018-06-10] MEDS ORDERED: Nitroglycerin 50mg in D5W 50 MG/250 ML BOTTLE IV ONE (11:23)
--- NOTE | 2018-06-10 11:36 | CP.PCM.PN ---
<Mukul Mueller - Last Filed: 06/10/18 13:45> Subjective - Date & Time of Evaluation Date of Evaluation: 06/10/18 Time of Evaluation: 07:00 - Subjective Subjective: Mukul Mueller DO, PGY-2: Hospitalist Progress Note Patient was seen and examined at bedside. Patient was on sedation vacation. He was able to move all extremities and was trying to converse. Attending validation intern note indicates patient has been doing well with the weaning trials. Sometime in the afternoon a code heart was called and the patient was taken to the for an urgent cardiac catheterization. Case was discussed with patient's sister who was at the bedside. Objective - Vital Signs/Intake and Output Vital Signs (last 24 hours): Temp Pulse Resp BP Pulse Ox 99.7 F H 77 53 H 148/81 98 06/10/18 11:10 06/10/18 11:10 06/10/18 08:55 06/10/18 11:00 06/10/18 11:10 Intake and Output: 06/10/18 06/10/18 06:59 18:59 Intake Total 2377 107 Output Total 500 Balance 1877 107 - Medications Medications: Current Medications Acetaminophen (Tylenol 650 Mg Supp) 650 mg RC Q4H PRN PRN Reason: Fever >100.4 F Last Admin: 06/09/18 00:03 Dose: 650 mg Aspirin (Aspirin) 325 mg NG DAILY [facility] Last Admin: 06/10/18 09:07 Dose: 325 mg Propofol (Diprivan) 1,000 mg in 100 mls @ 2.041 mls/hr IV .Q24H PRN; Protocol PRN Reason: TITRATE PER MD ORDER Last Admin: 06/10/18 10:00 Dose: 70 mcg/kg/min, 28.576 mls/hr Midazolam 100 mg/100ml in NS (Midazolam 100 Mg/100ml In Ns) 100 mg in 100 mls @ 5 mls/hr IV .Q20H PRN; Protocol PRN Reason: Agitation Last Titration: 06/10/18 10:30 Dose: 6 mg/hr, 6 mls/hr Levetiracetam (Keppra 500mg Ivpb) 500 mg in 100 mls @ 460 mls/hr IV Q12 [facility] Last Admin: 06/10/18 09:07 Dose: 460 mls/hr Dobutamine HCl/Dextrose (Dobutamine/Dextrose 5% 500mg/250ml) 500 mg in 250 mls @ 10.287 mls/hr IV .Q24H PRN; Protocol PRN Reason: TITRATE PER PROTOCOL Last Admin: 06/10/18 07:39 Dose: 5 mcg/kg/min, 10.287 mls/hr Dextrose (Dextrose 5% In Water 1000 Ml) 1,000 mls @ 50 mls/hr IV .Q20H [facility] Last Admin: 06/10/18 08:10 Dose: 50 mls/hr Lorazepam (Ativan) 4 mg IVP ONCE PRN; Protocol PRN Reason: prior to CT Last Admin: 06/06/18 23:36 Dose: 4 mg Losartan Potassium (Cozaar) 12.5 mg PO DAILY [facility] Last Admin: 06/10/18 09:10 Dose: 12.5 mg Thiamine HCl (Vitamin B1 Tab) 100 mg NG DAILY [facility] Last Admin: 06/10/18 09:07 Dose: 100 mg - Labs Labs: 06/10/18 05:30 06/10/18 05:30 PT 12.2 SECONDS (9.4-12.5) 06/10/18 08:20 INR 1.06 06/10/18 08:20 APTT 27.0 Seconds (25.1-36.5) 06/10/18 08:20 - Constitutional Appears: Well, Non-toxic - Head Exam Head Exam: ATRAUMATIC, NORMOCEPHALIC - Eye Exam Eye Exam: EOMI, Normal appearance - Neck Exam Neck Exam: Normal Inspection - Respiratory Exam Respiratory Exam: Clear to Ausculation Bilateral, NORMAL BREATHING PATTERN. absent: Accessory Muscle Use - Cardiovascular Exam Cardiovascular Exam: RRR, +S1, +S2 - GI/Abdominal Exam GI & Abdominal Exam: Soft, Normal Bowel Sounds - Extremities Exam Extremities Exam: Normal Inspection. absent: Calf Tenderness - Neurological Exam Neurological Exam: Alert, Awake - Psychiatric Exam Psychiatric exam: Normal Affect, Normal Mood - Skin Skin Exam: Dry, Intact, Normal Color, Warm Assessment and Plan - Assessment and Plan (Free Text) Assessment: 42 year old male with a past medical history of cannabis hyperemesis syndrome who came in s/p cardiac arrest and obtained ROSC with CPR and defibrillation, now admitted to ICU for management of respiratory failure and metabolic acidosis. Code heart on 06/10/18 and the patient was taken for an urgent cardiac catheterization. Plan: Cardiac arrest s/p chest compression -s/p intubation and sedation on propofol and versed - patient may be extubated today or as deemed appropriate by ICU team - cardiac cath per cardiology - EKG shows recent anterolateral M.I. - ECHO shows EF 26%, akinetic apex, mild TR, mild/mod pulm HTN - ICU and cardiology consulted - Patient to undergo cardiac catheterization - Losartan 12.5 mg PO daily - Dobutamine for pressure support at 5 mcg/kg/min Seizures -CT head shows no acute intracranial abnormalities -UDS positive for cannabinoids, otherwise unremarkable -VEEG shows moderate to severe background slowing, no seizures recorded -Neurology consulted -Keppra 500 mg IV Q12H GI bleed -OG tube drained ~50cc dark red fluid -Hgb 10.7 -monitor and transfuse as needed -hold aspirin -GI consulted -Protonix 40 mg IV Q12 Hypoglycemia D5W at 50 mls/hr - Accuchecks q4h Metabolic acidosis -resolved -bicarb drip discontinued PPX -SCD, protonix Patient seen and case discussed with attending, Dr. Caputo <Jared Caputo - Last Filed: 06/10/18 17:57> Objective - Vital Signs/Intake and Output Vital Signs (last 24 hours): Temp Pulse Resp BP Pulse Ox 99.1 F 64 18 113/69 100 06/10/18 17:30 06/10/18 17:30 06/10/18 17:00 06/10/18 17:30 06/10/18 17:30 Intake and Output: 06/10/18 06/10/18 06:59 18:59 Intake Total 2377 322 Output Total 500 Balance 1877 322 - Medications Medications: Current Medications Acetaminophen (Tylenol 650 Mg Supp) 650 mg RC Q4H PRN PRN Reason: Fever >100.4 F Last Admin: 06/09/18 00:03 Dose: 650 mg Aspirin (Ecotrin) 81 mg PO DAILY [facility] Atorvastatin Calcium (Lipitor) 40 mg PO DIN [facility] Last Admin: 06/10/18 17:18 Dose: 40 mg Clopidogrel Bisulfate (Plavix) 75 mg PO DAILY [facility] Propofol (Diprivan) 1,000 mg in 100 mls @ 2.041 mls/hr IV .Q24H PRN; Protocol PRN Reason: TITRATE PER MD ORDER Last Titration: 06/10/18 17:19 Dose: 50 mcg/kg/min, 20.412 mls/hr Midazolam 100 mg/100ml in NS (Midazolam 100 Mg/100ml In Ns) 100 mg in 100 mls @ 5 mls/hr IV .Q20H PRN; Protocol PRN Reason: Agitation Last Titration: 06/10/18 16:49 Dose: 5 mg/hr, 5 mls/hr Levetiracetam (Keppra 500mg Ivpb) 500 mg in 100 mls @ 460 mls/hr IV Q12 [facility] Last Admin: 06/10/18 09:07 Dose: 460 mls/hr Eptifibatide (Integrilin) 75 mg in 100 mls @ 10.509 mls/hr IV .Q9H31M [facility]; Protocol Stop: 06/11/18 12:00 Last Admin: 06/10/18 12:43 Dose: 10.509 mls/hr Sodium Chloride (Sodium Chloride 0.9%) 1,000 mls @ 50 mls/hr IV .Q20H [facility] Stop: 06/10/18 18:00 Last Admin: 06/10/18 14:00 Dose: 50 mls/hr Lorazepam (Ativan) 4 mg IVP ONCE PRN; Protocol PRN Reason: prior to CT Last Admin: 06/06/18 23:36 Dose: 4 mg Losartan Potassium (Cozaar) 12.5 mg PO DAILY [facility] Last Admin: 06/10/18 09:10 Dose: 12.5 mg Thiamine HCl (Vitamin B1 Tab) 100 mg NG DAILY [facility] Last Admin: 06/10/18 09:07 Dose: 100 mg - Labs Labs: 06/10/18 05:30 06/10/18 05:30 PT 12.2 SECONDS (9.4-12.5) 06/10/18 08:20 INR 1.06 06/10/18 08:20 APTT 27.0 Seconds (25.1-36.5) 06/10/18 08:20 Attending/Attestation - Attestation I have personally seen and examined this patient.: Yes I have fully participated in the care of the patient.: Yes I have reviewed all pertinent clinical information, including history, physical exam and plan: Yes Notes (Text): 06/10/18 17:51 42 year old male with past medical history of cannabis use who presented s/p cardiac arrest. Obtained ROSC with CPR and defibrillation for vtach on the field. In the ER he was intubated for airway protection and agonal breathing. He was found to have seizures and started on keppra, versed and proprofol. CT head was negative. VEEG was reviewed as above. . Repeat CT head today negative as well.Patient is on Keppra for seizure. EKG showed some ST changes in anterolateral leads. Initial troponin was negative however repeat troponins were 0.69 and 0.42. Echocardiogram showed severe systolic dysfunction. Patient was started on coreg and cozaar. Patient was evaluated by cardiology and is scheduled for cardiac cath today. Management plan was discussed in detail with patient and family. Education was provided. 06/10/18 17:57 06/10/18 17:57
[2018-06-10] MEDS ORDERED: Lidocaine 2% Inj (20ml) ONE (12:13)
[2018-06-10] MEDS ORDERED: Eptifibatide 20 mg/10mL Inj IVP ONE (12:38)
[2018-06-10] MEDS: Eptifibatide 0.75 mg/ml 75 MG/100 ML BOTTLE IV SCH ×2 (12:43→23:18)
[2018-06-10] MEDS ORDERED: Iohexol 350 MG/100 ML VIAL ONE ×2 (12:47→13:07)
--- NOTE | 2018-06-10 12:57 | CP.PCM.PCO ---
Physician Communication Note - Physician Communication Note Physician Communication Note: [facility] called; patient transferred to slab inspector w/ Dr Moon
[2018-06-10] MEDS ORDERED: Sodium Chloride 0.9% 1,000 ML IV SCH (14:00)
--- NOTE | 2018-06-10 15:58 | CP.PCM.PN ---
<Davin Brown - Last Filed: 06/10/18 16:01> Subjective - Date & Time of Evaluation Date of Evaluation: 06/10/18 Time of Evaluation: 09:00 - Subjective Subjective: Patient seen and examined at bedside intubated and sedated. Objective - Vital Signs/Intake and Output Vital Signs (last 24 hours): Temp Pulse Resp BP Pulse Ox 98.2 F 58 L 15 96/54 L 98 06/10/18 15:40 06/10/18 15:40 06/10/18 15:40 06/10/18 15:40 06/10/18 15:40 Intake and Output: 06/10/18 06/10/18 06:59 18:59 Intake Total 2377 283 Output Total 500 Balance 1877 283 - Medications Medications: Current Medications Acetaminophen (Tylenol 650 Mg Supp) 650 mg RC Q4H PRN PRN Reason: Fever >100.4 F Last Admin: 06/09/18 00:03 Dose: 650 mg Aspirin (Ecotrin) 81 mg PO DAILY [facility] Atorvastatin Calcium (Lipitor) 40 mg PO DIN [facility] Clopidogrel Bisulfate (Plavix) 75 mg PO DAILY [facility] Propofol (Diprivan) 1,000 mg in 100 mls @ 2.041 mls/hr IV .Q24H PRN; Protocol PRN Reason: TITRATE PER MD ORDER Last Titration: 06/10/18 15:43 Dose: 50 mcg/kg/min, 20.412 mls/hr Midazolam 100 mg/100ml in NS (Midazolam 100 Mg/100ml In Ns) 100 mg in 100 mls @ 5 mls/hr IV .Q20H PRN; Protocol PRN Reason: Agitation Last Titration: 06/10/18 15:49 Dose: 4 mg/hr, 4 mls/hr Levetiracetam (Keppra 500mg Ivpb) 500 mg in 100 mls @ 460 mls/hr IV Q12 [facility] Last Admin: 06/10/18 09:07 Dose: 460 mls/hr Eptifibatide (Integrilin) 75 mg in 100 mls @ 10.509 mls/hr IV .Q9H31M [facility]; Protocol Stop: 06/11/18 12:00 Last Admin: 06/10/18 12:43 Dose: 10.509 mls/hr Sodium Chloride (Sodium Chloride 0.9%) 1,000 mls @ 50 mls/hr IV .Q20H [facility] Stop: 06/10/18 18:00 Last Admin: 06/10/18 14:00 Dose: 50 mls/hr Lorazepam (Ativan) 4 mg IVP ONCE PRN; Protocol PRN Reason: prior to CT Last Admin: 06/06/18 23:36 Dose: 4 mg Losartan Potassium (Cozaar) 12.5 mg PO DAILY [facility] Last Admin: 06/10/18 09:10 Dose: 12.5 mg Thiamine HCl (Vitamin B1 Tab) 100 mg NG DAILY [facility] Last Admin: 06/10/18 09:07 Dose: 100 mg - Labs Labs: 06/10/18 05:30 06/10/18 05:30 PT 12.2 SECONDS (9.4-12.5) 06/10/18 08:20 INR 1.06 06/10/18 08:20 APTT 27.0 Seconds (25.1-36.5) 06/10/18 08:20 - Head Exam Head Exam: ATRAUMATIC, NORMAL INSPECTION, NORMOCEPHALIC - Neurological Exam Additional comments: Not able to be done since patient is intubated and sedated. Assessment and Plan - Assessment and Plan (Free Text) Assessment: 42 M with significant FMHx of CAD presenting s/p cardiac arrest secondary to OK found to have seizure like activity. -Continue Keppra 500 BID -VEEG monitoring can be discontinued; no signs of status epilepticus -CT head reveals no acute intracranial abnormalities -MRI brain once patient is stable -Will be able to better assess once patient is off sedation and extubated <Kamilla Gillis - Last Filed: 06/11/18 12:47> Objective - Vital Signs/Intake and Output Vital Signs (last 24 hours): Temp Pulse Resp BP Pulse Ox 99.5 F 79 25 H 124/88 98 06/11/18 10:31 06/11/18 12:30 06/11/18 12:30 06/11/18 12:00 06/11/18 12:30 Intake and Output: 06/11/18 06/11/18 06:59 18:59 Intake Total 1435 Output Total 1300 Balance 135 - Medications Medications: Current Medications Acetaminophen (Tylenol 325mg Tab) 650 mg PO Q4H PRN PRN Reason: Fever >100.4 F Albuterol/Ipratropium (Duoneb 3 Mg/0.5 Mg (3 Ml) Ud) 3 ml IH Q2H PRN PRN Reason: Shortness of Breath Aspirin (Ecotrin) 81 mg PO DAILY [facility] Last Admin: 06/11/18 10:30 Dose: 81 mg Atorvastatin Calcium (Lipitor) 40 mg PO DIN [facility] Last Admin: 06/10/18 17:18 Dose: 40 mg Carvedilol (Coreg) 3.125 mg PO BID [facility] Last Admin: 06/11/18 10:30 Dose: 3.125 mg Clopidogrel Bisulfate (Plavix) 75 mg PO DAILY [facility] Last Admin: 06/11/18 10:30 Dose: 75 mg Famotidine (Pepcid) 40 mg PO HS [facility] Propofol (Diprivan) 1,000 mg in 100 mls @ 2.041 mls/hr IV .Q24H PRN; Protocol PRN Reason: TITRATE PER MD ORDER Last Titration: 06/11/18 05:50 Dose: 0 mcg/kg/min, 0 mls/hr Midazolam 100 mg/100ml in NS (Midazolam 100 Mg/100ml In Ns) 100 mg in 100 mls @ 5 mls/hr IV .Q20H PRN; Protocol PRN Reason: Agitation Last Titration: 06/11/18 05:50 Dose: 0 mg/hr, 0 mls/hr Levetiracetam (Keppra 500mg Ivpb) 500 mg in 100 mls @ 460 mls/hr IV Q12 [facility] Last Admin: 06/11/18 09:25 Dose: 460 mls/hr Dextrose (Dextrose 5% In Water 1000 Ml) 1,000 mls @ 50 mls/hr IV .Q20H [facility] Last Admin: 06/10/18 18:53 Dose: 50 mls/hr Lorazepam (Ativan) 4 mg IVP ONCE PRN; Protocol PRN Reason: prior to CT Last Admin: 06/06/18 23:36 Dose: 4 mg Losartan Potassium (Cozaar) 12.5 mg PO DAILY [facility] Last Admin: 06/11/18 10:30 Dose: 12.5 mg Thiamine HCl (Vitamin B1 Tab) 100 mg NG DAILY [facility] Last Admin: 06/11/18 11:05 Dose: 100 mg - Labs Labs: 06/11/18 05:15 06/11/18 07:00 PT 12.2 SECONDS (9.4-12.5) 06/10/18 08:20 INR 1.06 06/10/18 08:20 APTT 27.0 Seconds (25.1-36.5) 06/10/18 08:20 Assessment and Plan - Assessment and Plan (Free Text) Assessment: I examined the patient with resident and helped him to formulate the assessment and plan. Dr gillis
--- NOTE | 2018-06-10 19:23 | CARDCATH ---
PROCEDURE DATE: 06/10/2018 EMERGENCY CARDIAC CATHETERIZATION AND PERCUTANEOUS TRANSLUMINAL CORONARY ANGIOPLASTY HISTORY: The patient is a 42-year-old male who presented several days ago with a cardiopulmonary arrest complicated by seizures and hemodynamic instability. He was brought to the coronary care unit and he was stabilized. The patient remains on a ventilator. His troponins were elevated. Because of this, I was asked to do an emergency procedure on the patient. PROCEDURE: Emergency percutaneous transluminal coronary angioplasty and stent of multiple vessels preceded by cardiac catheterization. The right femoral artery was cannulated with a 6-Uzbek sheath. There were no complications. I performed moderate sedation, which included the presence of an independent trained observer that assisted in monitoring the patient's respiratory status as well as physiologic status. After administration of Versed and Diprivan, my intra service time was 1 hour. The findings on catheterization revealed a left ventricle that was dilated and diffusely hypokinetic. Ejection fraction cannot be measured, but it was notable to be depressed. The patient had a right dominant circulation. The RCA had diffuse atherosclerosis with an eccentric 80% stenosis in the midportion. The left main artery was unremarkable. The circumflex artery revealed an 80-90% eccentric stenosis in its midportion. The LAD was found to be occluded at the takeoff of the septal per diem physical therapist assistant. There was an 80% stenosis prior to the septal per diem physical therapist assistant as well. The patient was started on intravenous Integrilin as well as 5000 of intravenous heparin. The guiding catheter was placed in the ostium of the RCA and 0.014 ATW wire was used to cross the critical lesion. A drug-eluting stent was placed and deployed in the mid RCA with excellent result with no residual stenosis and LUCRECIA III flow. The guiding catheter was then exchanged for a 3.5 XB guided, which was placed in the ostium of the left main artery. The ATW wire was used to cross the mid circumflex lesion. A drug-eluting stent was utilized to dilate the lesion. After balloon deflation and removal, repeat coronary arteriography reveals an excellent result with no residual stenosis and LUCRECIA III flow. A over the wire, balloon as well as wire was used to cross the total occlusion of the LAD. A guide liner was used for better support. After manipulation, the ATW wire was able to cross the LAD and go into the very distal LAD. A 2.0 balloon followed by 2.5 balloon was utilized to dilate the length of the entire LAD. Two drug-eluting stents were placed in the ostial LAD and the proximal LAD after repeat coronary arteriography and giving 200 mcg of nitroglycerin, repeat coronary arteriography revealed an excellent result with no residual stenosis and LUCRECIA III flow. Angio-Seal was used to close the femoral artery site and the patient tolerated the procedure well. In summary, the procedure was an emergency cardiac catheterization and PTCA. The catheterization reveals a depressed LV function. Severe triple-vessel disease including an occluded proximal LAD. Successful PTCA and stent of the occluded LAD, RCA, and circumflex artery with drug-eluting stents. Given these findings, the patient will go back to the ICU on a ventilator and on IV Integrilin, which will be on for the next 18 hours. In addition, his hemodynamics were stable enough, we can discontinue his dobutamine. Brayan Moon MD
--- NOTE | 2018-06-11 00:22 | CARD ---
APPROVED REPORT Date of service: 06/10/2018 EKG Measurement Heart [id number] <Conclusion> Normal sinus rhythm Anterolateral infarct, age undetermined Abnormal ECG
--- NOTE | 2018-06-11 00:32 | CARD ---
APPROVED REPORT Date of service: 06/10/2018 EKG Measurement Heart [id number] <Conclusion> Normal sinus rhythm Anterolateral infarct, with ST elevation in lateral leads consistent with recent infarction Abnormal ECG
[2018-06-11] MEDS: Midazolam 100 mg/100ml in NS 100 MG/100 ML SOL IV PRN (01:10)
[2018-06-11] MEDS: Propofol 10 mg/ml 1,000 MG/100 ML VIAL IV PRN (04:46)
[2018-06-11 05:52] LABS: ARTERIAL BLOOD GAS HEMOGLOBIN 11.3 g/dL (11.7-17.4); ARTERIAL BLOOD GAS O2 CAPACITY 15.7 mL/dl (16-24); ARTERIAL BLOOD GAS O2 CONTENT 15.7 ML/dl (15-23); ARTERIAL BLOOD GAS PCO2 33 mm/Hg (35-45); ARTERIAL BLOOD GAS PH 7.47 (7.35-7.45)
[2018-06-11 06:25] LABS: BASO # 0.01 K/mm3 (0.0-2.0); BASO % 0.1 % (0.0-3.0); EOS # 0.1 (0.0-0.7); EOS % 0.9 % (1.5-5.0); GRAN # 7.89 (1.4-6.5); GRAN % 74.9 % (50.0-68.0); HEMOGLOBIN 10.9 g/dL (14.0-18.0); LYMPH # 1.3 (1.2-3.4); LYMPH % 12.1 % (22.0-35.0); MEAN CELL VOLUME 97.9 fl (80.0-105.0); MEAN CORPUSCULAR HEMOGLOBIN 32.3 pg (25.0-35.0); MEAN PLATELET VOLUME 9.5 fl (7.0-11.0); MONO # 1.3 (0.1-0.6); RBC 3.37 10^6/uL (3.5-6.1); RED CELL DISTRIBUTION WIDTH 13.5 % (11.5-14.5); WHITE BLOOD COUNT 10.5 10^3/uL (4.5-11.0)
--- NOTE | 2018-06-11 06:43 | CP.PCM.PN ---
<RamirezRhina L - Last Filed: 06/11/18 11:58> Subjective - Date & Time of Evaluation Date of Evaluation: 06/11/18 Time of Evaluation: 06:42 - Subjective Subjective: Resident Progress Note for Hospitalist Service Patient examined at bedside. Patient was febrile overnight. Patient now s/p extubation to nasal cannula. AAOx1. Denies fevers, chills, chest pain, shortness of breath, abdominal pain, diarrhea. Objective - Vital Signs/Intake and Output Vital Signs (last 24 hours): Temp Pulse Resp BP Pulse Ox 101.1 F H 66 17 107/56 L 99 06/11/18 04:20 06/11/18 04:20 06/10/18 21:55 06/11/18 04:15 06/11/18 04:20 Intake and Output: 06/10/18 06/11/18 18:59 06:59 Intake Total 1550 232 Output Total 1200 Balance 350 232 - Medications Medications: Current Medications Acetaminophen (Tylenol 650 Mg Supp) 650 mg RC Q4H PRN PRN Reason: Fever >100.4 F Last Admin: 06/10/18 23:17 Dose: 650 mg Aspirin (Ecotrin) 81 mg PO DAILY [facility] Atorvastatin Calcium (Lipitor) 40 mg PO DIN [facility] Last Admin: 06/10/18 17:18 Dose: 40 mg Clopidogrel Bisulfate (Plavix) 75 mg PO DAILY [facility] Propofol (Diprivan) 1,000 mg in 100 mls @ 2.041 mls/hr IV .Q24H PRN; Protocol PRN Reason: TITRATE PER MD ORDER Last Admin: 06/11/18 04:46 Dose: 50 mcg/kg/min, 20.412 mls/hr Midazolam 100 mg/100ml in NS (Midazolam 100 Mg/100ml In Ns) 100 mg in 100 mls @ 5 mls/hr IV .Q20H PRN; Protocol PRN Reason: Agitation Last Titration: 06/11/18 01:15 Dose: 7 mg/hr, 7 mls/hr Levetiracetam (Keppra 500mg Ivpb) 500 mg in 100 mls @ 460 mls/hr IV Q12 [facility]ENN[facility] Last Admin: 06/10/18 20:59 Dose: 460 mls/hr Eptifibatide (Integrilin) 75 mg in 100 mls @ 10.509 mls/hr IV .Q9H31M [facility]; Protocol Stop: 06/11/18 12:00 Last Admin: 06/10/18 23:18 Dose: 10.509 mls/hr Dextrose (Dextrose 5% In Water 1000 Ml) 1,000 mls @ 50 mls/hr IV .Q20H [facility] Last Admin: 06/10/18 18:53 Dose: 50 mls/hr Lorazepam (Ativan) 4 mg IVP ONCE PRN; Protocol PRN Reason: prior to CT Last Admin: 06/06/18 23:36 Dose: 4 mg Losartan Potassium (Cozaar) 12.5 mg PO DAILY [facility] Last Admin: 06/10/18 09:10 Dose: 12.5 mg Pantoprazole Sodium (Protonix Inj) 40 mg IVP DAILY [facility] Last Admin: 06/10/18 18:57 Dose: 40 mg Thiamine HCl (Vitamin B1 Tab) 100 mg NG DAILY [facility] Last Admin: 06/10/18 09:07 Dose: 100 mg - Labs Labs: 06/11/18 05:15 06/10/18 05:30 PT 12.2 SECONDS (9.4-12.5) 06/10/18 08:20 INR 1.06 06/10/18 08:20 APTT 27.0 Seconds (25.1-36.5) 06/10/18 08:20 - Additional Findings Additional findings: - Constitutional Appears: Well, Non-toxic - Head Exam Head Exam: ATRAUMATIC, NORMOCEPHALIC - Eye Exam Eye Exam: EOMI, Normal appearance - Neck Exam Neck Exam: Normal Inspection - Respiratory Exam Respiratory Exam: Clear to Auscultation Bilateral, NORMAL BREATHING PATTERN. absent: Accessory Muscle Use - Cardiovascular Exam Cardiovascular Exam: RRR, +S1, +S2 - GI/Abdominal Exam GI & Abdominal Exam: Soft, Normal Bowel Sounds, femoral dressing C/D/I - Extremities Exam Extremities Exam: Normal Inspection. absent: Calf Tenderness - Neurological Exam Neurological Exam: Alert, Awake - Psychiatric Exam Psychiatric exam: Normal Affect, Normal Mood - Skin Skin Exam: Dry, Intact, Normal Color, Warm Assessment and Plan - Assessment and Plan (Free Text) Assessment: 42 year old male with a past medical history of cannabis hyperemesis syndrome who was admitted to ICU s/p cardiac arrest and obtained ROSC with CPR and defibrillation, now s/p cardiac cath. Plan: Cardiac arrest - s/p cardiac cath with stents in proximal LAD, RCA, circumflex artery - EKG showed recent anterolateral M.I. - ECHO shows EF 26%, akinetic apex, mild TR, mild/mod pulm HTN - ICU and cardiology consulted - IV integrilin and dobutamine drip discontinued - Losartan 12.5 mg PO daily - Aspirin 81 mg PO daily, Plavix 65 mg PO daily - Lipitor 40 mg PO DIN - Carvedilol 3.125 mg PO BID Seizures - now s/p extubation - CT head shows no acute intracranial abnormalities - UDS positive for cannabinoids - VEEG shows moderate to severe background slowing, no seizures - Neurology consulted - Keppra 500 mg IV Q12H - followup MRI Fever - Tmax overnight 101.7, no leukocytosis - Tylenol PRN - 06/06 BCx neg x2, UCx neg - followup new set of cultures GI bleed - Hgb stable - monitor and transfuse as needed - hold aspirin - GI consulted. Recs appreciated - Pepcid 40 mg PO daily Hypoglycemia - D5W at 50 mls/hr - Accuchecks q4h Metabolic acidosis - resolved - bicarb drip discontinued PPX -SCD, pepcid Case discussed with Dr. Harshal Ramirez PGY-1 <Jared Caputo - Last Filed: 06/11/18 15:37> Objective - Vital Signs/Intake and Output Vital Signs (last 24 hours): Temp Pulse Resp BP Pulse Ox 99.5 F 79 25 H 124/88 98 06/11/18 10:31 06/11/18 14:00 06/11/18 12:30 06/11/18 12:00 06/11/18 12:30 Intake and Output: 06/11/18 06/11/18 06:59 18:59 Intake Total 1435 Output Total 1300 Balance 135 - Medications Medications: Current Medications Acetaminophen (Tylenol 325mg Tab) 650 mg PO Q4H PRN PRN Reason: Fever >100.4 F Albuterol/Ipratropium (Duoneb 3 Mg/0.5 Mg (3 Ml) Ud) 3 ml IH Q2H PRN PRN Reason: Shortness of Breath Aspirin (Ecotrin) 81 mg PO DAILY [facility] Last Admin: 06/11/18 10:30 Dose: 81 mg Atorvastatin Calcium (Lipitor) 40 mg PO DIN [facility] Last Admin: 06/10/18 17:18 Dose: 40 mg Carvedilol (Coreg) 3.125 mg PO BID [facility] Last Admin: 06/11/18 10:30 Dose: 3.125 mg Clopidogrel Bisulfate (Plavix) 75 mg PO DAILY [facility] Last Admin: 06/11/18 10:30 Dose: 75 mg Famotidine (Pepcid) 40 mg PO HS [facility] Propofol (Diprivan) 1,000 mg in 100 mls @ 2.041 mls/hr IV .Q24H PRN; Protocol PRN Reason: TITRATE PER MD ORDER Last Titration: 06/11/18 05:50 Dose: 0 mcg/kg/min, 0 mls/hr Midazolam 100 mg/100ml in NS (Midazolam 100 Mg/100ml In Ns) 100 mg in 100 mls @ 5 mls/hr IV .Q20H PRN; Protocol PRN Reason: Agitation Last Titration: 06/11/18 05:50 Dose: 0 mg/hr, 0 mls/hr Levetiracetam (Keppra 500mg Ivpb) 500 mg in 100 mls @ 460 mls/hr IV Q12 [facility] Last Admin: 06/11/18 09:25 Dose: 460 mls/hr Dextrose (Dextrose 5% In Water 1000 Ml) 1,000 mls @ 50 mls/hr IV .Q20H [facility] Last Admin: 06/10/18 18:53 Dose: 50 mls/hr Lorazepam (Ativan) 4 mg IVP ONCE PRN; Protocol PRN Reason: prior to CT Last Admin: 06/06/18 23:36 Dose: 4 mg Losartan Potassium (Cozaar) 12.5 mg PO DAILY [facility] Last Admin: 06/11/18 10:30 Dose: 12.5 mg Thiamine HCl (Vitamin B1 Tab) 100 mg NG DAILY [facility] Last Admin: 06/11/18 11:05 Dose: 100 mg - Labs Labs: 06/11/18 05:15 06/11/18 07:00 PT 12.2 SECONDS (9.4-12.5) 06/10/18 08:20 INR 1.06 06/10/18 08:20 APTT 27.0 Seconds (25.1-36.5) 06/10/18 08:20 Attending/Attestation - Attestation I have personally seen and examined this patient.: Yes I have fully participated in the care of the patient.: Yes I have reviewed all pertinent clinical information, including history, physical exam and plan: Yes Notes (Text): 06/11/18 15:34 42 year old male with past medical history of cannabis use who presented s/p cardiac arrest. Obtained ROSC with CPR and defibrillation for vtach on the field. In the ER he was intubated for airway protection and agonal breathing. He was found to have seizures and started on keppra, versed and proprofol. CT head was negative. VEEG was reviewed as above. . Repeat CT head today negative as well.Patient is on Keppra for seizure. EKG showed some ST changes in anterolateral leads. Initial troponin was negative however repeat troponins were 0.69 and 0.42. Echocardiogram showed severe systolic dysfunction. Patient was evaluated by cardiology ,underwent cardiac cath yesterday that showed e vessel disease and had cardiac stent placed in in proximal LAD, RCA, circumflex artery. Patient is on ASA/Plavix/Cozar and statin, will monitor CK level . Patient is extubated today, no further seizure, continue Keppra as per Neurology. Management plan was discussed in detail with patient and family. Education was provided. 06/11/18 15:35
--- NOTE | 2018-06-11 06:52 | CP.CCUPN ---
<Mesa,Tani - Last Filed: 06/11/18 12:23> CCU Subjective - Physician Review Subjective (Free Text): Tani Mesa Internal Medicine Resident- Progress Note on Behalf of Critical Care Team Subjective: Patient seen and examined at bedside. Tmax overnight 101.7 F. Patient was brought off sedation. Able to communicate through non-verbal cues. Understands that he needs to be weaned prior to ET tube being removed. Denies fever, chills, chest pain, SOB. Update: successful extubation. patient able to verbally communicate without over difficultly. Offers no new complaints at this time. 12 point ROS negative except as indicated in HPI Physical Examination: - Constitutional Appears: Well, No Acute Distress - Head Exam Head Exam: ATRAUMATIC, NORMAL INSPECTION, NORMOCEPHALIC - Eye Exam Eye Exam: EOMI, RAGINI - ENT Exam ENT Exam: Mucous Membranes Moist, OG tube and ett in place - Neck Exam Neck exam: Positive for: Normal Inspection - Respiratory Exam Respiratory Exam: Clear to Auscultation Bilateral, NORMAL BREATHING PATTERN - Cardiovascular Exam Cardiovascular Exam: REGULAR RHYTHM, +S1, +S2. absent: Gallop, JVD, Rubs - GI/Abdominal Exam GI & Abdominal Exam: Normal Bowel Sounds, Soft. absent: Tenderness - Neurological Exam Neurological exam: Awake, alert, responds to verbal stimuli, follows commands, moves extremities past midline - Skin Skin Exam: Dry, Intact, Normal Color, Warm, bandages on heels, femoral site clean, dry, and intact Assessment and Plan: Patient is a 42 year old male with a past medical history of cannabis hyperemesis syndrome who came in s/p cardiac arrest and obtained ROSC with CPR and defibrillation. Patient is admitted to ICU for management of respiratory failure on vent. Neuro Acute encephalopathy,AMS - resolved - 06/06/2018 CT Head without contrast No acute intracranial abnormalities - 06/08/2018 CT head without contrast- ordered and pending- to be completed after video eeg completed Seizures - switch on keppra 500mg IV q12 to keppra 500mg PO q12h - will discontinue on versed drip 5mcg/hr & propofol @ 5mcg/kg/min - neurology consulted- appreciate recommendation, follow up video EEG- no seizure like activity, not in status, diffuse rae matter dysfunction Cardiovascular: Cardiac Arrest s/p ROSC - troponins trending down - 06/08/2018 echocardiogram- LVEF 26%, LV moderately dilated, akinetic apex - hold aspirin due to GI bleed - consider starting patient on statin once CPK normalizes - cardiology consulted (Dr. Velasco)- appreciate recommendation - interventional cardiology consulted (Dr. Moon)- 06/10 Cardiac cath. severe triple vessel disease including occluded proximal LAD, stent in LAD, RCA, and circumflex artery - continue ASA 81, Plavix 75, and Lipitor 40 mg - integrilin drip completed - continue losartan 12.5 PO daily with holding parameters - restart carvedilol 3.125 PO BID Hyperlipidemia - elevated LDL and TAG - currently on statin, monitor CPK due to rhabdomyolysis - hold aspirin secondary to GI bleed Resp: Respiratory Failure s/p Cardiac Arrest, Seizure - patient weaned this morning- successfully extubated - resolved - continue oxygen supplementation via NC 2 L MSK Rhabdomyolysis - CPK downtrending~ 2700 to 833 - discontinue d5 in water @ 50cc/hr as patient is tolerating diet - repeat CPK in AM ID Fever - s/p motrin 300mg PO x 1 and Ofirmev 1000mg IV x 1 - blood cultures, urine cultures, sputum cultures stat - CXR 06/11/18- Stable retrocardiac opacity reflecting atelectasis or infiltrate small pleural effusion not excluded Renal Hypokalemia - 3.4 repleted with 2 10mg KCl riders Hypomagnesemia - 1.4 repeleted with 2 gram of Mag sulfate GI GI Hemorrhage - ddx- j carlos keith tear during seizure episode - okay to start feeds - switch protonix 40mg IV daily to 40mg PO daily - continue d5 in water @ 50cc/hr - GI consulted (Dr. Minor)- appreciate recommendations Heme Anemia - normocytic - stable 10.9 from 10.7 DVT Ppx - SCD Patient case discussed with and plan approved by attending physician, Dr. Oquendo. 06/11/18 12:33 CCU Objective - Vital Signs / Intake & Output Vital Signs (Last 4 hours): Vital Signs Temp Pulse BP Pulse Ox 06/11/18 04:20 101.1 F H 66 99 06/11/18 04:15 101.3 F H 68 107/56 L 99 06/11/18 04:10 101.5 F H 67 99 06/11/18 04:00 101.7 F H 67 114/61 99 06/11/18 03:50 101.7 F H 71 06/11/18 03:45 101.7 F H 75 127/73 94 L 06/11/18 03:40 101.7 F H 69 90 L 06/11/18 03:30 101.7 F H 70 124/66 96 06/11/18 03:20 101.7 F H 71 94 L 06/11/18 03:15 101.7 F H 75 122/80 100 06/11/18 03:10 101.7 F H 74 100 06/11/18 03:00 101.7 F H 75 131/71 100 Intake and Output (Last 8hrs): Intake & Output 06/10/18 06/10/18 06/11/18 14:59 22:59 06:59 Intake Total 207 1363 212 Output Total 1200 Balance 207 163 212 Intake: IV 207 1363 212 Left Forearm 900 Right Forearm 60 Right Hand 240 Output: Urine 1200 Urethral ([place]) 1200 - Medications Active Medications: Active Medications Generic Name Dose Route Start Last Admin Trade Name Freq PRN Reason Stop Dose Admin Acetaminophen 650 mg 06/06/18 17:21 06/10/18 23:17 Tylenol 650 Mg Supp RC 650 mg Q4H PRN Administration Fever >100.4 F Aspirin 81 mg 06/11/18 10:00 Ecotrin PO DAILY JENNIFER Atorvastatin Calcium 40 mg 06/10/18 17:00 06/10/18 17:18 Lipitor PO 40 mg DIN JENNIFER Administration Clopidogrel Bisulfate 75 mg 06/11/18 10:00 Plavix PO DAILY JENNIFER Propofol 1,000 mg in 100 mls @ 2.041 mls/hr 06/06/18 13:44 06/11/18 04:46 Diprivan IV 50 mcg/kg/min .Q24H PRN 20.412 mls/hr TITRATE PER MD ORDER Administration Protocol 5 MCG/KG/MIN Midazolam 100 mg/100ml in NS 100 mg in 100 mls @ 5 mls/hr 06/06/18 14:34 06/11/18 01:15 Midazolam 100 Mg/100ml In Ns IV 7 mg/hr .Q20H PRN 7 mls/hr Agitation Titration Protocol 5 MG/HR Levetiracetam 500 mg in 100 mls @ 460 mls/hr 06/07/18 22:00 06/10/18 20:59 Keppra 500mg Ivpb IV 460 mls/hr Q12 JENNIFER Administration Eptifibatide 75 mg in 100 mls @ 10.509 mls/hr 06/10/18 14:00 06/10/18 23:18 Integrilin IV 06/11/18 12:00 10.509 mls/hr .Q9H31M JENNIFER Administration Protocol 2 MCG/KG/MIN Dextrose 1,000 mls @ 50 mls/hr 06/10/18 19:00 06/10/18 18:53 Dextrose 5% In Water 1000 Ml IV 50 mls/hr .Q20H JENNIFER Administration Lorazepam 4 mg 06/06/18 19:33 06/06/18 23:36 Ativan IVP 4 mg ONCE PRN Administration prior to CT Protocol Losartan Potassium 12.5 mg 06/09/18 10:33 06/10/18 09:10 Cozaar PO 12.5 mg DAILY JENNIFER Administration Pantoprazole Sodium 40 mg 06/10/18 18:40 06/10/18 18:57 Protonix Inj IVP 40 mg DAILY JENNIFER Administration Thiamine HCl 100 mg 06/08/18 14:15 06/10/18 09:07 Vitamin B1 Tab NG 100 mg DAILY JENNIFER Administration - Patient Studies Lab Studies: Microbiology Studies 06/06/18 17:45 Blood Culture - Preliminary Blood NO GROWTH AFTER 4 DAYS 06/06/18 17:30 Blood Culture - Preliminary Blood NO GROWTH AFTER 4 DAYS Lab Studies 06/11/18 06/11/18 06/11/18 Range/Units 06:04 05:15 05:15 WBC 10.5 (4.5-11.0) 10^3/uL RBC 3.37 L (3.5-6.1) 10^6/uL Hgb 10.9 L (14.0-18.0) g/dL Hct 33.0 L (42.0-52.0) % MCV 97.9 (80.0-105.0) fl MCH 32.3 (25.0-35.0) pg MCHC 33.0 (31.0-37.0) g/dl RDW 13.5 (11.5-14.5) % Plt Count 255 (120.0-450.0) 10^3/uL MPV 9.5 (7.0-11.0) fl Gran % 74.9 H (50.0-68.0) % Lymph % (Auto) 12.1 L (22.0-35.0) % Upson % (Auto) 12.0 H (1.0-6.0) % Eos % (Auto) 0.9 L (1.5-5.0) % Baso % (Auto) 0.1 (0.0-3.0) % Gran # 7.89 H (1.4-6.5) Lymph # (Auto) 1.3 (1.2-3.4) Upson # (Auto) 1.3 H (0.1-0.6) Eos # (Auto) 0.1 (0.0-0.7) Baso # (Auto) 0.01 (0.0-2.0) K/mm3 PT (9.4-12.5) SECONDS INR APTT (25.1-36.5) Seconds pCO2 33 L (35-45) mm/Hg pO2 147.0 H (80-100) mm/Hg HCO3 24.0 (21-28) mmol/L ABG pH 7.47 H (7.35-7.45) ABG Total CO2 25.0 (22-28) mmol.L ABG O2 Saturation 100.0 H (95-98) % ABG O2 Content 15.7 (15-23) ML/dl ABG Base Excess 0.7 (-2.0-3.0) mmol/L ABG Hemoglobin 11.3 L (11.7-17.4) g/dL ABG Carboxyhemoglobin 1.9 H (0.5-1.5) % POC ABG HHb (Measured) 0 (0-5) % ABG Methemoglobin 1.1 (0.0-3.0) % ABG O2 Capacity 15.7 L (16-24) mL/dl Hgb O2 Saturation 97.1 (95.0-98.0) % FiO2 35.0 % Sodium (132-148) mmol/L Potassium (3.6-5.0) mmol/L Chloride (98-107) mmol/L Carbon Dioxide (21-33) mmol/L Anion Gap (10-20) BUN (7-21) mg/dL Creatinine (0.8-1.5) mg/dl Est GFR ( Amer) Est GFR (Non-Af Amer) POC Glucose (mg/dL) 96 (65-110) mg/dL Random Glucose (70-110) mg/dL Calcium (8.4-10.5) mg/dL Magnesium (1.7-2.2) mg/dL Total Bilirubin (0.2-1.3) mg/dL AST (17-59) U/L ALT (7-56) U/L Alkaline Phosphatase (38-126) U/L Total Creatine Kinase (35-230) U/L CK-MB (CK-2) (0.0-3.6) ng/mL CK-MB (CK-2) % Total Protein (5.8-8.3) g/dL Albumin (3.0-4.8) g/dL Globulin gm/dL Albumin/Globulin Ratio (1.1-1.8) 06/10/18 06/10/18 06/10/18 Range/Units 21:50 19:59 16:35 WBC (4.5-11.0) 10^3/uL RBC (3.5-6.1) 10^6/uL Hgb (14.0-18.0) g/dL Hct (42.0-52.0) % MCV (80.0-105.0) fl MCH (25.0-35.0) pg MCHC (31.0-37.0) g/dl RDW (11.5-14.5) % Plt Count (120.0-450.0) 10^3/uL MPV (7.0-11.0) fl Gran % (50.0-68.0) % Lymph % (Auto) (22.0-35.0) % Upson % (Auto) (1.0-6.0) % Eos % (Auto) (1.5-5.0) % Baso % (Auto) (0.0-3.0) % Gran # (1.4-6.5) Lymph # (Auto) (1.2-3.4) Upson # (Auto) (0.1-0.6) Eos # (Auto) (0.0-0.7) Baso # (Auto) (0.0-2.0) K/mm3 PT (9.4-12.5) SECONDS INR APTT (25.1-36.5) Seconds pCO2 (35-45) mm/Hg pO2 (80-100) mm/Hg HCO3 (21-28) mmol/L ABG pH (7.35-7.45) ABG Total CO2 (22-28) mmol.L ABG O2 Saturation (95-98) % ABG O2 Content (15-23) ML/dl ABG Base Excess (-2.0-3.0) mmol/L ABG Hemoglobin (11.7-17.4) g/dL ABG Carboxyhemoglobin (0.5-1.5) % POC ABG HHb (Measured) (0-5) % ABG Methemoglobin (0.0-3.0) % ABG O2 Capacity (16-24) mL/dl Hgb O2 Saturation (95.0-98.0) % FiO2 % Sodium (132-148) mmol/L Potassium (3.6-5.0) mmol/L Chloride (98-107) mmol/L Carbon Dioxide (21-33) mmol/L Anion Gap (10-20) BUN (7-21) mg/dL Creatinine (0.8-1.5) mg/dl Est GFR ( Amer) Est GFR (Non-Af Amer) POC Glucose (mg/dL) 100 101 74 (65-110) mg/dL Random Glucose (70-110) mg/dL Calcium (8.4-10.5) mg/dL Magnesium (1.7-2.2) mg/dL Total Bilirubin (0.2-1.3) mg/dL AST (17-59) U/L ALT (7-56) U/L Alkaline Phosphatase (38-126) U/L Total Creatine Kinase (35-230) U/L CK-MB (CK-2) (0.0-3.6) ng/mL CK-MB (CK-2) % Total Protein (5.8-8.3) g/dL Albumin (3.0-4.8) g/dL Globulin gm/dL Albumin/Globulin Ratio (1.1-1.8) 06/10/18 06/10/18 06/10/18 Range/Units 14:48 11:35 09:20 WBC (4.5-11.0) 10^3/uL RBC (3.5-6.1) 10^6/uL Hgb (14.0-18.0) g/dL Hct (42.0-52.0) % MCV (80.0-105.0) fl MCH (25.0-35.0) pg MCHC (31.0-37.0) g/dl RDW (11.5-14.5) % Plt Count (120.0-450.0) 10^3/uL MPV (7.0-11.0) fl Gran % (50.0-68.0) % Lymph % (Auto) (22.0-35.0) % Upson % (Auto) (1.0-6.0) % Eos % (Auto) (1.5-5.0) % Baso % (Auto) (0.0-3.0) % Gran # (1.4-6.5) Lymph # (Auto) (1.2-3.4) Upson # (Auto) (0.1-0.6) Eos # (Auto) (0.0-0.7) Baso # (Auto) (0.0-2.0) K/mm3 PT (9.4-12.5) SECONDS INR APTT (25.1-36.5) Seconds pCO2 (35-45) mm/Hg pO2 (80-100) mm/Hg HCO3 (21-28) mmol/L ABG pH (7.35-7.45) ABG Total CO2 (22-28) mmol.L ABG O2 Saturation (95-98) % ABG O2 Content (15-23) ML/dl ABG Base Excess (-2.0-3.0) mmol/L ABG Hemoglobin (11.7-17.4) g/dL ABG Carboxyhemoglobin (0.5-1.5) % POC ABG HHb (Measured) (0-5) % ABG Methemoglobin (0.0-3.0) % ABG O2 Capacity (16-24) mL/dl Hgb O2 Saturation (95.0-98.0) % FiO2 % Sodium (132-148) mmol/L Potassium (3.6-5.0) mmol/L Chloride (98-107) mmol/L Carbon Dioxide (21-33) mmol/L Anion Gap (10-20) BUN (7-21) mg/dL Creatinine (0.8-1.5) mg/dl Est GFR ( Amer) Est GFR (Non-Af Amer) POC Glucose (mg/dL) 98 63 L 97 (65-110) mg/dL Random Glucose (70-110) mg/dL Calcium (8.4-10.5) mg/dL Magnesium (1.7-2.2) mg/dL Total Bilirubin (0.2-1.3) mg/dL AST (17-59) U/L ALT (7-56) U/L Alkaline Phosphatase (38-126) U/L Total Creatine Kinase (35-230) U/L CK-MB (CK-2) (0.0-3.6) ng/mL CK-MB (CK-2) % Total Protein (5.8-8.3) g/dL Albumin (3.0-4.8) g/dL Globulin gm/dL Albumin/Globulin Ratio (1.1-1.8) 06/10/18 06/10/18 06/10/18 Range/Units 08:20 07:35 05:30 WBC (4.5-11.0) 10^3/uL RBC (3.5-6.1) 10^6/uL Hgb (14.0-18.0) g/dL Hct (42.0-52.0) % MCV (80.0-105.0) fl MCH (25.0-35.0) pg MCHC (31.0-37.0) g/dl RDW (11.5-14.5) % Plt Count (120.0-450.0) 10^3/uL MPV (7.0-11.0) fl Gran % (50.0-68.0) % Lymph % (Auto) (22.0-35.0) % Upson % (Auto) (1.0-6.0) % Eos % (Auto) (1.5-5.0) % Baso % (Auto) (0.0-3.0) % Gran # (1.4-6.5) Lymph # (Auto) (1.2-3.4) Upson # (Auto) (0.1-0.6) Eos # (Auto) (0.0-0.7) Baso # (Auto) (0.0-2.0) K/mm3 PT 12.2 (9.4-12.5) SECONDS INR 1.06 APTT 27.0 (25.1-36.5) Seconds pCO2 (35-45) mm/Hg pO2 (80-100) mm/Hg HCO3 (21-28) mmol/L ABG pH (7.35-7.45) ABG Total CO2 (22-28) mmol.L ABG O2 Saturation (95-98) % ABG O2 Content (15-23) ML/dl ABG Base Excess (-2.0-3.0) mmol/L ABG Hemoglobin (11.7-17.4) g/dL ABG Carboxyhemoglobin (0.5-1.5) % POC ABG HHb (Measured) (0-5) % ABG Methemoglobin (0.0-3.0) % ABG O2 Capacity (16-24) mL/dl Hgb O2 Saturation (95.0-98.0) % FiO2 % Sodium 143 (132-148) mmol/L Potassium 3.6 (3.6-5.0) mmol/L Chloride 114 H (98-107) mmol/L Carbon Dioxide 21 (21-33) mmol/L Anion Gap 11 (10-20) BUN 9 (7-21) mg/dL Creatinine 0.7 L (0.8-1.5) mg/dl Est GFR ( Amer) > 60 Est GFR (Non-Af Amer) > 60 POC Glucose (mg/dL) 54 L (65-110) mg/dL Random Glucose 67 L (70-110) mg/dL Calcium 8.0 L (8.4-10.5) mg/dL Magnesium 1.7 (1.7-2.2) mg/dL Total Bilirubin 0.4 (0.2-1.3) mg/dL AST 48 (17-59) U/L ALT 41 (7-56) U/L Alkaline Phosphatase 53 (38-126) U/L Total Creatine Kinase 1146 H (35-230) U/L CK-MB (CK-2) 1.5 (0.0-3.6) ng/mL CK-MB (CK-2) % Cancelled Total Protein 5.6 L (5.8-8.3) g/dL Albumin 3.0 (3.0-4.8) g/dL Globulin 2.7 gm/dL Albumin/Globulin Ratio 1.1 (1.1-1.8) 06/10/ Range/Units 05:30 WBC 9.0 D (4.5-11.0) 10^3/uL RBC 3.29 L (3.5-6.1) 10^6/uL Hgb 10.7 L D (14.0-18.0) g/dL Hct 32.6 L (42.0-52.0) % MCV 99.1 (80.0-105.0) fl MCH 32.5 (25.0-35.0) pg MCHC 32.8 (31.0-37.0) g/dl RDW 13.5 (11.5-14.5) % Plt Count 215 (120.0-450.0) 10^3/uL MPV 9.4 (7.0-11.0) fl Gran % 63.5 (50.0-68.0) % Lymph % (Auto) 23.6 (22.0-35.0) % Upson % (Auto) 11.5 H (1.0-6.0) % Eos % (Auto) 1.2 L (1.5-5.0) % Baso % (Auto) 0.2 (0.0-3.0) % Gran # 5.70 (1.4-6.5) Lymph # (Auto) 2.1 (1.2-3.4) Upson # (Auto) 1.0 H (0.1-0.6) Eos # (Auto) 0.1 (0.0-0.7) Baso # (Auto) 0.02 (0.0-2.0) K/mm3 PT (9.4-12.5) SECONDS INR APTT (25.1-36.5) Seconds pCO2 (35-45) mm/Hg pO2 (80-100) mm/Hg HCO3 (21-28) mmol/L ABG pH (7.35-7.45) ABG Total CO2 (22-28) mmol.L ABG O2 Saturation (95-98) % ABG O2 Content (15-23) ML/dl ABG Base Excess (-2.0-3.0) mmol/L ABG Hemoglobin (11.7-17.4) g/dL ABG Carboxyhemoglobin (0.5-1.5) % POC ABG HHb (Measured) (0-5) % ABG Methemoglobin (0.0-3.0) % ABG O2 Capacity (16-24) mL/dl Hgb O2 Saturation (95.0-98.0) % FiO2 % Sodium (132-148) mmol/L Potassium (3.6-5.0) mmol/L Chloride (98-107) mmol/L Carbon Dioxide (21-33) mmol/L Anion Gap (10-20) BUN (7-21) mg/dL Creatinine (0.8-1.5) mg/dl Est GFR ( Amer) Est GFR (Non-Af Amer) POC Glucose (mg/dL) (65-110) mg/dL Random Glucose (70-110) mg/dL Calcium (8.4-10.5) mg/dL Magnesium (1.7-2.2) mg/dL Total Bilirubin (0.2-1.3) mg/dL AST (17-59) U/L ALT (7-56) U/L Alkaline Phosphatase (38-126) U/L Total Creatine Kinase (35-230) U/L CK-MB (CK-2) (0.0-3.6) ng/mL CK-MB (CK-2) % Total Protein (5.8-8.3) g/dL Albumin (3.0-4.8) g/dL Globulin gm/dL Albumin/Globulin Ratio (1.1-1.8) Laboratory Results - last 24 hr 06/10/18 06/10/18 06/10/18 05:30 05:30 07:35 WBC 9.0 D RBC 3.29 L Hgb 10.7 L D Hct 32.6 L MCV 99.1 MCH 32.5 MCHC 32.8 RDW 13.5 Plt Count 215 MPV 9.4 Gran % 63.5 Lymph % (Auto) 23.6 Upson % (Auto) 11.5 H Eos % (Auto) 1.2 L Baso % (Auto) 0.2 Gran # 5.70 Lymph # (Auto) 2.1 Upson # (Auto) 1.0 H Eos # (Auto) 0.1 Baso # (Auto) 0.02 PT INR APTT pCO2 pO2 HCO3 ABG pH ABG Total CO2 ABG O2 Saturation ABG O2 Content ABG Base Excess ABG Hemoglobin ABG Carboxyhemoglobin POC ABG HHb (Measured) ABG Methemoglobin ABG O2 Capacity Hgb O2 Saturation FiO2 Sodium 143 Potassium 3.6 Chloride 114 H Carbon Dioxide 21 Anion Gap 11 BUN 9 Creatinine 0.7 L Est GFR ( Amer) > 60 Est GFR (Non-Af Amer) > 60 POC Glucose (mg/dL) 54 L Random Glucose 67 L Calcium 8.0 L Magnesium 1.7 Total Bilirubin 0.4 AST 48 ALT 41 Alkaline Phosphatase 53 Total Creatine Kinase 1146 H CK-MB (CK-2) 1.5 CK-MB (CK-2) % Cancelled Total Protein 5.6 L Albumin 3.0 Globulin 2.7 Albumin/Globulin Ratio 1.1 06/10/18 06/10/18 06/10/18 08:20 09:20 11:35 WBC RBC Hgb Hct MCV MCH MCHC RDW Plt Count MPV Gran % Lymph % (Auto) Upson % (Auto) Eos % (Auto) Baso % (Auto) Gran # Lymph # (Auto) Upson # (Auto) Eos # (Auto) Baso # (Auto) PT 12.2 INR 1.06 APTT 27.0 pCO2 pO2 HCO3 ABG pH ABG Total CO2 ABG O2 Saturation ABG O2 Content ABG Base Excess ABG Hemoglobin ABG Carboxyhemoglobin POC ABG HHb (Measured) ABG Methemoglobin ABG O2 Capacity Hgb O2 Saturation FiO2 Sodium Potassium Chloride Carbon Dioxide Anion Gap BUN Creatinine Est GFR ( Amer) Est GFR (Non-Af Amer) POC Glucose (mg/dL) 97 63 L Random Glucose Calcium Magnesium Total Bilirubin AST ALT Alkaline Phosphatase Total Creatine Kinase CK-MB (CK-2) CK-MB (CK-2) % Total Protein Albumin Globulin Albumin/Globulin Ratio 06/10/18 06/10/18 06/10/18 14:48 16:35 19:59 WBC RBC Hgb Hct MCV MCH MCHC RDW Plt Count MPV Gran % Lymph % (Auto) Upson % (Auto) Eos % (Auto) Baso % (Auto) Gran # Lymph # (Auto) Upson # (Auto) Eos # (Auto) Baso # (Auto) PT INR APTT pCO2 pO2 HCO3 ABG pH ABG Total CO2 ABG O2 Saturation ABG O2 Content ABG Base Excess ABG Hemoglobin ABG Carboxyhemoglobin POC ABG HHb (Measured) ABG Methemoglobin ABG O2 Capacity Hgb O2 Saturation FiO2 Sodium Potassium Chloride Carbon Dioxide Anion Gap BUN Creatinine Est GFR ( Amer) Est GFR (Non-Af Amer) POC Glucose (mg/dL) 98 74 101 Random Glucose Calcium Magnesium Total Bilirubin AST ALT Alkaline Phosphatase Total Creatine Kinase CK-MB (CK-2) CK-MB (CK-2) % Total Protein Albumin Globulin Albumin/Globulin Ratio 06/10/18 06/11/18 06/11/18 21:50 05:15 05:15 WBC 10.5 RBC 3.37 L Hgb 10.9 L Hct 33.0 L MCV 97.9 MCH 32.3 MCHC 33.0 RDW 13.5 Plt Count 255 MPV 9.5 Gran % 74.9 H Lymph % (Auto) 12.1 L Upson % (Auto) 12.0 H Eos % (Auto) 0.9 L Baso % (Auto) 0.1 Gran # 7.89 H Lymph # (Auto) 1.3 Upson # (Auto) 1.3 H Eos # (Auto) 0.1 Baso # (Auto) 0.01 PT INR APTT pCO2 33 L pO2 147.0 H HCO3 24.0 ABG pH 7.47 H ABG Total CO2 25.0 ABG O2 Saturation 100.0 H ABG O2 Content 15.7 ABG Base Excess 0.7 ABG Hemoglobin 11.3 L ABG Carboxyhemoglobin 1.9 H POC ABG HHb (Measured) 0 ABG Methemoglobin 1.1 ABG O2 Capacity 15.7 L Hgb O2 Saturation 97.1 FiO2 35.0 Sodium Potassium Chloride Carbon Dioxide Anion Gap BUN Creatinine Est GFR ( Amer) Est GFR (Non-Af Amer) POC Glucose (mg/dL) 100 Random Glucose Calcium Magnesium Total Bilirubin AST ALT Alkaline Phosphatase Total Creatine Kinase CK-MB (CK-2) CK-MB (CK-2) % Total Protein Albumin Globulin Albumin/Globulin Ratio 06/11/18 06:04 WBC RBC Hgb Hct MCV MCH MCHC RDW Plt Count MPV Gran % Lymph % (Auto) Upson % (Auto) Eos % (Auto) Baso % (Auto) Gran # Lymph # (Auto) Upson # (Auto) Eos # (Auto) Baso # (Auto) PT INR APTT pCO2 pO2 HCO3 ABG pH ABG Total CO2 ABG O2 Saturation ABG O2 Content ABG Base Excess ABG Hemoglobin ABG Carboxyhemoglobin POC ABG HHb (Measured) ABG Methemoglobin ABG O2 Capacity Hgb O2 Saturation FiO2 Sodium Potassium Chloride Carbon Dioxide Anion Gap BUN Creatinine Est GFR ( Amer) Est GFR (Non-Af Amer) POC Glucose (mg/dL) 96 Random Glucose Calcium Magnesium Total Bilirubin AST ALT Alkaline Phosphatase Total Creatine Kinase CK-MB (CK-2) CK-MB (CK-2) % Total Protein Albumin Globulin Albumin/Globulin Ratio Radiology Impressions: Radiology Impressions Chest X-Ray 06/10/18 05:00 IMPRESSION: Stable retrocardiac opacity reflecting atelectasis or infiltrate small pleural effusion not excluded. Remaining lung guillen appear clear. Interval removal of nasogastric tube apparent. ET tube appears retracted in the interval as discussed above. Consider advancing 2-3 cm antegrade into the trachea. Follow-up radiography recommended. EKG/Cardiology Studies: Cardiology / EKG Studies 06/10/18 11:52 EKG [ELECTROCARDIOGRAM] Stat Comment: Reason For Exam: CHEST PAIN 06/10/18 13:55 ELECTROCARDIOGRAM Urgent Comment: 12 lead EKG upon arrival in unit Reason For Exam: post ptca 06/11/18 14:00 ELECTROCARDIOGRAM DAILY Comment: Reason For Exam: chest pain Fingerstick Blood Sugar Results: 100 <Junior Oquendo B - Last Filed: 06/11/18 18:33> CCU Objective - Vital Signs / Intake & Output Vital Signs (Last 4 hours): Vital Signs Pulse Resp BP Pulse Ox 06/11/18 16:50 87 20 97 06/11/18 16:40 85 97 06/11/18 16:30 74 96 06/11/18 16:20 88 15 97 06/11/18 16:10 77 15 96 06/11/18 16:00 72 15 125/54 L 98 06/11/18 15:50 72 15 96 06/11/18 15:40 81 16 98 06/11/18 15:38 70 20 117/52 L 96 06/11/18 15:30 73 19 96 06/11/18 15:20 70 97 06/11/18 15:10 77 27 H 97 06/11/18 15:00 75 21 97 06/11/18 14:50 76 13 94 L 06/11/18 14:40 71 21 97 Intake and Output (Last 8hrs): Intake & Output 06/11/18 06/11/18 06/11/18 06:59 14:59 22:59 Intake Total 1415 Output Total 1300 Balance 115 Intake: IV 1215 Left Forearm 618 Right Forearm 125 Right Hand 204 Oral 0 Tube Feeding 0 TPN/PPN 0 Blood Product 0 Lipid 0 Albumin 0 Other 200 Output: Urine 1300 Urethral ([place]) 1300 Stool 0 Urine/Stool Mix 0 Emesis 0 Oral Regurgitation 0 Other 0 Other: # Voids Urethral ([place]) 0 # Bowel Movements 0 - Medications Active Medications: Active Medications Generic Name Dose Route Start Last Admin Trade Name Freq PRN Reason Stop Dose Admin Acetaminophen 650 mg 06/11/18 11:48 Tylenol 325mg Tab PO Q4H PRN Fever >100.4 F Albuterol/Ipratropium 3 ml 06/11/18 09:23 Duoneb 3 Mg/0.5 Mg (3 Ml) Ud IH Q2H PRN Shortness of Breath Aspirin 81 mg 06/11/18 10:00 06/11/18 10:30 Ecotrin PO 81 mg DAILY JENNIFER Administration Atorvastatin Calcium 40 mg 06/10/18 17:00 06/11/18 16:55 Lipitor PO 40 mg DIN JENNIFER Administration Carvedilol 3.125 mg 06/11/18 10:00 06/11/18 10:30 Coreg PO 3.125 mg BID JENNIFER Administration Clopidogrel Bisulfate 75 mg 06/11/18 10:00 06/11/18 10:30 Plavix PO 75 mg DAILY JENNIFER Administration Famotidine 40 mg 06/11/18 22:00 Pepcid PO HS JENNIFER Propofol 1,000 mg in 100 mls @ 2.041 mls/hr 06/06/18 13:44 06/11/18 05:50 Diprivan IV 0 mcg/kg/min .Q24H PRN 0 mls/hr TITRATE PER MD ORDER Titration Protocol 5 MCG/KG/MIN Midazolam 100 mg/100ml in NS 100 mg in 100 mls @ 5 mls/hr 06/06/18 14:34 06/11/18 05:50 Midazolam 100 Mg/100ml In Ns IV 0 mg/hr .Q20H PRN 0 mls/hr Agitation Titration Protocol 5 MG/HR Levetiracetam 500 mg in 100 mls @ 460 mls/hr 06/07/18 22:00 06/11/18 09:25 Keppra 500mg Ivpb IV 460 mls/hr Q12 JENNIFER Administration Dextrose 1,000 mls @ 50 mls/hr 06/10/18 19:00 06/11/18 16:00 Dextrose 5% In Water 1000 Ml IV 50 mls/hr .Q20H JENNIFER Administration Lorazepam 4 mg 06/06/18 19:33 06/06/18 23:36 Ativan IVP 4 mg ONCE PRN Administration prior to CT Protocol Losartan Potassium 12.5 mg 06/09/18 10:33 06/11/18 10:30 Cozaar PO 12.5 mg DAILY JENNIFER Administration Thiamine HCl 100 mg 06/08/18 14:15 06/11/18 11:05 Vitamin B1 Tab NG 100 mg DAILY JENNIFER Administration - Patient Studies Lab Studies: Microbiology Studies 06/06/18 17:45 Blood Culture - Final Blood NO GROWTH AFTER 5 DAYS Gram Stain - Final TEST NOT PERFORMED 06/06/18 17:30 Blood Culture - Final Blood NO GROWTH AFTER 5 DAYS Gram Stain - Final TEST NOT PERFORMED 06/11/18 07:00 Gram Stain - Final Trachasp Lab Studies 06/11/18 06/11/18 06/11/18 Range/Units 11:11 07:45 07:27 WBC (4.5-11.0) 10^3/uL RBC (3.5-6.1) 10^6/uL Hgb (14.0-18.0) g/dL Hct (42.0-52.0) % MCV (80.0-105.0) fl MCH (25.0-35.0) pg MCHC (31.0-37.0) g/dl RDW (11.5-14.5) % Plt Count (120.0-450.0) 10^3/uL MPV (7.0-11.0) fl Gran % (50.0-68.0) % Lymph % (Auto) (22.0-35.0) % [place]pson % (Auto) (1.0-6.0) % Eos % (Auto) (1.5-5.0) % Baso % (Auto) (0.0-3.0) % Gran # (1.4-6.5) Lymph # (Auto) (1.2-3.4) [place]pson # (Auto) (0.1-0.6) Eos # (Auto) (0.0-0.7) Baso # (Auto) (0.0-2.0) K/mm3 pCO2 (35-45) mm/Hg pO2 (80-100) mm/Hg HCO3 (21-28) mmol/L ABG pH (7.35-7.45) ABG Total CO2 (22-28) mmol.L ABG O2 Saturation (95-98) % ABG O2 Content (15-23) ML/dl ABG Base Excess (-2.0-3.0) mmol/L ABG Hemoglobin (11.7-17.4) g/dL ABG Carboxyhemoglobin (0.5-1.5) % POC ABG HHb (Measured) (0-5) % ABG Methemoglobin (0.0-3.0) % ABG O2 Capacity (16-24) mL/dl Hgb O2 Saturation (95.0-98.0) % FiO2 % Sodium (132-148) mmol/L Potassium (3.6-5.0) mmol/L Chloride (98-107) mmol/L Carbon Dioxide (21-33) mmol/L Anion Gap (10-20) BUN (7-21) mg/dL Creatinine (0.8-1.5) mg/dl Est GFR ( Amer) Est GFR (Non-Af Amer) POC Glucose (mg/dL) 86 90 (65-110) mg/dL Random Glucose (70-110) mg/dL Calcium (8.4-10.5) mg/dL Magnesium (1.7-2.2) mg/dL Total Bilirubin (0.2-1.3) mg/dL AST (17-59) U/L ALT (7-56) U/L Alkaline Phosphatase (38-126) U/L Total Creatine Kinase (35-230) U/L CK-MB (CK-2) (0.0-3.6) ng/mL CK-MB (CK-2) % Total Protein (5.8-8.3) g/dL Albumin (3.0-4.8) g/dL Globulin gm/dL Albumin/Globulin Ratio (1.1-1.8) Urine Color Yellow (YELLOW) Urine Appearance Clear (CLEAR) Urine pH 6.0 (4.7-8.0) Ur Specific [place] <= 1.005 (1.005-1.035) Urine Protein Negative (<30 mg/dL) mg/dL Urine Glucose (UA) Negative (NEGATIVE) mg/dL Urine Ketones Trace H (NEGATIVE) mg/dL Urine Blood Moderate H (NEGATIVE) Urine Nitrate Negative (NEGATIVE) Urine Bilirubin Negative (NEGATIVE) Urine Urobilinogen 0.2 (<1 E.U./dL) E.U./dL Ur Leukocyte Esterase Small H (NEGATIVE) Zaina/uL Urine RBC 1 - 3 H (0-2) /hpf Urine WBC 5 - 10 H (0-6) /hpf Ur Epithelial Cells 0 - 2 (0-5) /hpf Urine Bacteria Few (NONE) /hpf 06/11/18 06/11/18 06/11/18 Range/Units 07:00 06:04 05:15 WBC (4.5-11.0) 10^3/uL RBC (3.5-6.1) 10^6/uL Hgb (14.0-18.0) g/dL Hct (42.0-52.0) % MCV (80.0-105.0) fl MCH (25.0-35.0) pg MCHC (31.0-37.0) g/dl RDW (11.5-14.5) % Plt Count (120.0-450.0) 10^3/uL MPV (7.0-11.0) fl Gran % (50.0-68.0) % Lymph % (Auto) (22.0-35.0) % Upson % (Auto) (1.0-6.0) % Eos % (Auto) (1.5-5.0) % Baso % (Auto) (0.0-3.0) % Gran # (1.4-6.5) Lymph # (Auto) (1.2-3.4) [place]pson # (Auto) (0.1-0.6) Eos # (Auto) (0.0-0.7) Baso # (Auto) (0.0-2.0) K/mm3 pCO2 33 L (35-45) mm/Hg pO2 147.0 H (80-100) mm/Hg HCO3 24.0 (21-28) mmol/L ABG pH 7.47 H (7.35-7.45) ABG Total CO2 25.0 (22-28) mmol.L ABG O2 Saturation 100.0 H (95-98) % ABG O2 Content 15.7 (15-23) ML/dl ABG Base Excess 0.7 (-2.0-3.0) mmol/L ABG Hemoglobin 11.3 L (11.7-17.4) g/dL ABG Carboxyhemoglobin 1.9 H (0.5-1.5) % POC ABG HHb (Measured) 0 (0-5) % ABG Methemoglobin 1.1 (0.0-3.0) % ABG O2 Capacity 15.7 L (16-24) mL/dl Hgb O2 Saturation 97.1 (95.0-98.0) % FiO2 35.0 % Sodium 140 (132-148) mmol/L Potassium 3.4 L (3.6-5.0) mmol/L Chloride 108 H (98-107) mmol/L Carbon Dioxide 27 (21-33) mmol/L Anion Gap 8 L (10-20) BUN 3 L (7-21) mg/dL Creatinine 0.7 L (0.8-1.5) mg/dl Est GFR ( Amer) > 60 Est GFR (Non-Af Amer) > 60 POC Glucose (mg/dL) 96 (65-110) mg/dL Random Glucose 103 (70-110) mg/dL Calcium 8.3 L (8.4-10.5) mg/dL Magnesium 1.4 L (1.7-2.2) mg/dL Total Bilirubin 0.6 (0.2-1.3) mg/dL AST 38 (17-59) U/L ALT 33 (7-56) U/L Alkaline Phosphatase 55 (38-126) U/L Total Creatine Kinase 833 H (35-230) U/L CK-MB (CK-2) 1.0 (0.0-3.6) ng/mL CK-MB (CK-2) % Cancelled Total Protein 6.1 (5.8-8.3) g/dL Albumin 3.2 (3.0-4.8) g/dL Globulin 2.9 gm/dL Albumin/Globulin Ratio 1.1 (1.1-1.8) Urine Color (YELLOW) Urine Appearance (CLEAR) Urine pH (4.7-8.0) Ur Specific [place] (1.005-1.035) Urine Protein (<30 mg/dL) mg/dL Urine Glucose (UA) (NEGATIVE) mg/dL Urine Ketones (NEGATIVE) mg/dL Urine Blood (NEGATIVE) Urine Nitrate (NEGATIVE) Urine Bilirubin (NEGATIVE) Urine Urobilinogen (<1 E.U./dL) E.U./dL Ur Leukocyte Esterase (NEGATIVE) Zaina/uL Urine RBC (0-2) /hpf Urine WBC (0-6) /hpf Ur Epithelial Cells (0-5) /hpf Urine Bacteria (NONE) /hpf 06/11/18 06/10/18 06/10/18 Range/Units 05:15 21:50 19:59 WBC 10.5 (4.5-11.0) 10^3/uL RBC 3.37 L (3.5-6.1) 10^6/uL Hgb 10.9 L (14.0-18.0) g/dL Hct 33.0 L (42.0-52.0) % MCV 97.9 (80.0-105.0) fl MCH 32.3 (25.0-35.0) pg MCHC 33.0 (31.0-37.0) g/dl RDW 13.5 (11.5-14.5) % Plt Count 255 (120.0-450.0) 10^3/uL MPV 9.5 (7.0-11.0) fl Gran % 74.9 H (50.0-68.0) % Lymph % (Auto) 12.1 L (22.0-35.0) % Upson % (Auto) 12.0 H (1.0-6.0) % Eos % (Auto) 0.9 L (1.5-5.0) % Baso % (Auto) 0.1 (0.0-3.0) % Gran # 7.89 H (1.4-6.5) Lymph # (Auto) 1.3 (1.2-3.4) [place]pson # (Auto) 1.3 H (0.1-0.6) Eos # (Auto) 0.1 (0.0-0.7) Baso # (Auto) 0.01 (0.0-2.0) K/mm3 pCO2 (35-45) mm/Hg pO2 (80-100) mm/Hg HCO3 (21-28) mmol/L ABG pH (7.35-7.45) ABG Total CO2 (22-28) mmol.L ABG O2 Saturation (95-98) % ABG O2 Content (15-23) ML/dl ABG Base Excess (-2.0-3.0) mmol/L ABG Hemoglobin (11.7-17.4) g/dL ABG Carboxyhemoglobin (0.5-1.5) % POC ABG HHb (Measured) (0-5) % ABG Methemoglobin (0.0-3.0) % ABG O2 Capacity (16-24) mL/dl Hgb O2 Saturation (95.0-98.0) % FiO2 % Sodium (132-148) mmol/L Potassium (3.6-5.0) mmol/L Chloride (98-107) mmol/L Carbon Dioxide (21-33) mmol/L Anion Gap (10-20) BUN (7-21) mg/dL Creatinine (0.8-1.5) mg/dl Est GFR ( Amer) Est GFR (Non-Af Amer) POC Glucose (mg/dL) 100 101 (65-110) mg/dL Random Glucose (70-110) mg/dL Calcium (8.4-10.5) mg/dL Magnesium (1.7-2.2) mg/dL Total Bilirubin (0.2-1.3) mg/dL AST (17-59) U/L ALT (7-56) U/L Alkaline Phosphatase (38-126) U/L Total Creatine Kinase (35-230) U/L CK-MB (CK-2) (0.0-3.6) ng/mL CK-MB (CK-2) % Total Protein (5.8-8.3) g/dL Albumin (3.0-4.8) g/dL Globulin gm/dL Albumin/Globulin Ratio (1.1-1.8) Urine Color (YELLOW) Urine Appearance (CLEAR) Urine pH (4.7-8.0) Ur Specific [place] (1.005-1.035) Urine Protein (<30 mg/dL) mg/dL Urine Glucose (UA) (NEGATIVE) mg/dL Urine Ketones (NEGATIVE) mg/dL Urine Blood (NEGATIVE) Urine Nitrate (NEGATIVE) Urine Bilirubin (NEGATIVE) Urine Urobilinogen (<1 E.U./dL) E.U./dL Ur Leukocyte Esterase (NEGATIVE) Zaina/uL Urine RBC (0-2) /hpf Urine WBC (0-6) /hpf Ur Epithelial Cells (0-5) /hpf Urine Bacteria (NONE) /hpf Laboratory Results - last 24 hr 06/10/18 06/10/18 06/11/18 19:59 21:50 05:15 WBC 10.5 RBC 3.37 L Hgb 10.9 L Hct 33.0 L MCV 97.9 MCH 32.3 MCHC 33.0 RDW 13.5 Plt Count 255 MPV 9.5 Gran % 74.9 H Lymph % (Auto) 12.1 L Upson % (Auto) 12.0 H Eos % (Auto) 0.9 L Baso % (Auto) 0.1 Gran # 7.89 H Lymph # (Auto) 1.3 [place] # (Auto) 1.3 H Eos # (Auto) 0.1 Baso # (Auto) 0.01 pCO2 pO2 HCO3 ABG pH ABG Total CO2 ABG O2 Saturation ABG O2 Content ABG Base Excess ABG Hemoglobin ABG Carboxyhemoglobin POC ABG HHb (Measured) ABG Methemoglobin ABG O2 Capacity Hgb O2 Saturation FiO2 Sodium Potassium Chloride Carbon Dioxide Anion Gap BUN Creatinine Est GFR ( Amer) Est GFR (Non-Af Amer) POC Glucose (mg/dL) 101 100 Random Glucose Calcium Magnesium Total Bilirubin AST ALT Alkaline Phosphatase Total Creatine Kinase CK-MB (CK-2) CK-MB (CK-2) % Total Protein Albumin Globulin Albumin/Globulin Ratio Urine Color Urine Appearance Urine pH Ur Specific [place] Urine Protein Urine Glucose (UA) Urine Ketones Urine Blood Urine Nitrate Urine Bilirubin Urine Urobilinogen Ur Leukocyte Esterase Urine RBC Urine WBC Ur Epithelial Cells Urine Bacteria 06/11/18 06/11/18 06/11/18 05:15 06:04 07:00 WBC RBC Hgb Hct MCV MCH MCHC RDW Plt Count MPV Gran % Lymph % (Auto) [place] % (Auto) Eos % (Auto) Baso % (Auto) Gran # Lymph # (Auto) [place] # (Auto) Eos # (Auto) Baso # (Auto) pCO2 33 L pO2 147.0 H HCO3 24.0 ABG pH 7.47 H ABG Total CO2 25.0 ABG O2 Saturation 100.0 H ABG O2 Content 15.7 ABG Base Excess 0.7 ABG Hemoglobin 11.3 L ABG Carboxyhemoglobin 1.9 H POC ABG HHb (Measured) 0 ABG Methemoglobin 1.1 ABG O2 Capacity 15.7 L Hgb O2 Saturation 97.1 FiO2 35.0 Sodium 140 Potassium 3.4 L Chloride 108 H Carbon Dioxide 27 Anion Gap 8 L BUN 3 L Creatinine 0.7 L Est GFR ( Amer) > 60 Est GFR (Non-Af Amer) > 60 POC Glucose (mg/dL) 96 Random Glucose 103 Calcium 8.3 L Magnesium 1.4 L Total Bilirubin 0.6 AST 38 ALT 33 Alkaline Phosphatase 55 Total Creatine Kinase 833 H CK-MB (CK-2) 1.0 CK-MB (CK-2) % Cancelled Total Protein 6.1 Albumin 3.2 Globulin 2.9 Albumin/Globulin Ratio 1.1 Urine Color Urine Appearance Urine pH Ur Specific [place] Urine Protein Urine Glucose (UA) Urine Ketones Urine Blood Urine Nitrate Urine Bilirubin Urine Urobilinogen Ur Leukocyte Esterase Urine RBC Urine WBC Ur Epithelial Cells Urine Bacteria 06/11/18 06/11/18 06/11/18 07:27 07:45 11:11 WBC RBC Hgb Hct MCV MCH MCHC RDW Plt Count MPV Gran % Lymph % (Auto) [place] % (Auto) Eos % (Auto) Baso % (Auto) Gran # Lymph # (Auto) [place] # (Auto) Eos # (Auto) Baso # (Auto) pCO2 pO2 HCO3 ABG pH ABG Total CO2 ABG O2 Saturation ABG O2 Content ABG Base Excess ABG Hemoglobin ABG Carboxyhemoglobin POC ABG HHb (Measured) ABG Methemoglobin ABG O2 Capacity Hgb O2 Saturation FiO2 Sodium Potassium Chloride Carbon Dioxide Anion Gap BUN Creatinine Est GFR ( Amer) Est GFR (Non-Af Amer) POC Glucose (mg/dL) 90 86 Random Glucose Calcium Magnesium Total Bilirubin AST ALT Alkaline Phosphatase Total Creatine Kinase CK-MB (CK-2) CK-MB (CK-2) % Total Protein Albumin Globulin Albumin/Globulin Ratio Urine Color Yellow Urine Appearance Clear Urine pH 6.0 Ur Specific [place] <= 1.005 Urine Protein Negative Urine Glucose (UA) Negative Urine Ketones Trace H Urine Blood Moderate H Urine Nitrate Negative Urine Bilirubin Negative Urine Urobilinogen 0.2 Ur Leukocyte Esterase Small H Urine RBC 1 - 3 H Urine WBC 5 - 10 H Ur Epithelial Cells 0 - 2 Urine Bacteria Few Radiology Impressions: Radiology Impressions Chest X-Ray 06/11/18 06:00 IMPRESSION: Endotracheal tube in satisfactory position. The nasogastric tube is in suboptimal position with the tip at the level of the diaphragm EKG/Cardiology Studies: Cardiology / EKG Studies 06/11/18 14:00 ELECTROCARDIOGRAM DAILY Comment: Reason For Exam: chest pain Critical Care Progress Note - Nutrition Nutrition: Nutrition Category Date Time Status Heart Healthy Diet [DIET] Diets 06/11/18 Lunch Active Attending/Attestation - Attestation I have personally seen and examined this patient.: Yes I have fully participated in the care of the patient.: Yes I have reviewed all pertinent clinical information: Yes Notes (Text): 06/11/18 18:31 42 yo male after cardiac arrest due to STEMI, now s/p cardiac cath with multiple stents placed. extubated-->doing well. will cont bb-ers, DAP, statins. if ok overnight will consider transferring to [facility] time 40 min
[2018-06-11 07:30] LABS: ALB/GLOB RATIO 1.1 (1.1-1.8); ALBUMIN 3.2 g/dL (3.0-4.8); ALT/SGPT 33 U/L (7-56); AST/SGOT 38 U/L (17-59); BLOOD UREA NITROGEN 3 mg/dL (7-21); CALCIUM 8.3 mg/dL (8.4-10.5); GFR NON-AFRICAN AMERICAN > 60
[2018-06-11] MEDS ORDERED: Magnesium Sulfate 2 gm/50 ml 2 GM/50 ML BAG IVPB SCH (07:48)
[2018-06-11 08:13] LABS: URINE BILIRUBIN NEGATIVE (NEGATIVE); URINE BLOOD MODERATE (NEGATIVE); URINE GLUCOSE (UA) NEGATIVE (NEGATIVE); URINE LEUKOCYTE ESTERASE SMALL Leu/uL (NEGATIVE); URINE PROTEIN NEGATIVE mg/dL (<30 mg/dL); URINE UROBILINOGEN 0.2 E.U./dL (<1 E.U./dL)
[2018-06-11 08:14] LABS: URINE APPEARANCE CLEAR (CLEAR); URINE COLOR YELLOW (YELLOW)
[2018-06-11 08:24] LABS: URINE BACTERIA FEW /hpf; URINE EPITHELIAL CELLS 0 - 2 /hpf (0-5)
[2018-06-11] MEDS ORDERED: Magnesium Sulfate 2 gm/50 ml 2 GM/50 ML BAG IVPB ONE ×2 (08:42→10:33)
[2018-06-11] MEDS ORDERED: Albuterol-Ipratrop 3 mg / 0.5 (3 ml) UD IH PRN (09:23)
[2018-06-11] MEDS: levETIRAcetam 500mg IVPB 500 MG/100 ML BAG IV SCH ×2 (09:25→21:19)
--- NOTE | 2018-06-11 09:53 | RAD ---
Date of service: 06/11/2018 HISTORY: Intubated COMPARISON: 06/10/2018 FINDINGS: LUNGS: No active pulmonary disease. PLEURA: No significant pleural effusion identified, no pneumothorax apparent. CARDIOVASCULAR: No aortic atherosclerotic calcification present. Normal cardiac size. No pulmonary vascular congestion. OSSEOUS STRUCTURES: No significant abnormalities. VISUALIZED UPPER ABDOMEN: Nasogastric tube is in suboptimal position just above the diaphragm. OTHER FINDINGS: Endotracheal tube in satisfactory position IMPRESSION: Endotracheal tube in satisfactory position. The nasogastric tube is in suboptimal position with the tip at the level of the diaphragm
[2018-06-11] MEDS ORDERED: Potassium Chloride 20 mEq/15 ml LIQ UD PO STA (10:33)
--- NOTE | 2018-06-11 12:42 | PN ---
DATE: 06/11/2018 SUBJECTIVE: The patient is extubated and awake. No chest pain noted. PHYSICAL EXAMINATION: VITAL SIGNS: Blood pressure is 126/84, heart rate is in the 70s. NECK: Negative JVD. LUNGS: Decreased breath sounds. HEART: S1 and S2. ABDOMEN The right groin site is stable. LABORATORY DATA: Hemoglobin of 10.9. Chemistries: BUN and creatinine are unremarkable. The potassium is 3.4 with a magnesium of 1.4. IMPRESSION: 1. Status post multivessel percutaneous transluminal coronary angioplasty and stent. 2. Status post cardiac arrest. 3. Ischemic dilated cardiomyopathy. 4. Chronic obstructive pulmonary disease. 5. Status post respiratory failure and cardiogenic shock. PLAN: Given these findings, the patient is doing remarkably well postprocedure. We will replace the potassium, replace the magnesium. The patient should be out of bed in a chair and discontinue the Goodrich catheter. Brayan Moon MD
--- NOTE | 2018-06-11 14:55 | CP.PCM.PN ---
<Davin Brown - Last Filed: 06/12/18 06:49> Subjective - Date & Time of Evaluation Date of Evaluation: 06/11/18 Time of Evaluation: 09:15 - Subjective Subjective: Patient seen and examined at bedside off sedation and extubated. Patient unable to recall which year he is in or which hospital he is at. Patient denies any complaints at this time. Objective - Vital Signs/Intake and Output Vital Signs (last 24 hours): Temp Pulse Resp BP Pulse Ox 99.5 F 79 25 H 124/88 98 06/11/18 10:31 06/11/18 14:00 06/11/18 12:30 06/11/18 12:00 06/11/18 12:30 Intake and Output: 06/11/18 06/11/18 06:59 18:59 Intake Total 1435 Output Total 1300 Balance 135 - Medications Medications: Current Medications Acetaminophen (Tylenol 325mg Tab) 650 mg PO Q4H PRN PRN Reason: Fever >100.4 F Albuterol/Ipratropium (Duoneb 3 Mg/0.5 Mg (3 Ml) Ud) 3 ml IH Q2H PRN PRN Reason: Shortness of Breath Aspirin (Ecotrin) 81 mg PO DAILY [facility] Last Admin: 06/11/18 10:30 Dose: 81 mg Atorvastatin Calcium (Lipitor) 40 mg PO DIN [facility] Last Admin: 06/10/18 17:18 Dose: 40 mg Carvedilol (Coreg) 3.125 mg PO BID [facility] Last Admin: 06/11/18 10:30 Dose: 3.125 mg Clopidogrel Bisulfate (Plavix) 75 mg PO DAILY [facility] Last Admin: 06/11/18 10:30 Dose: 75 mg Famotidine (Pepcid) 40 mg PO HS [facility] Propofol (Diprivan) 1,000 mg in 100 mls @ 2.041 mls/hr IV .Q24H PRN; Protocol PRN Reason: TITRATE PER MD ORDER Last Titration: 06/11/18 05:50 Dose: 0 mcg/kg/min, 0 mls/hr Midazolam 100 mg/100ml in NS (Midazolam 100 Mg/100ml In Ns) 100 mg in 100 mls @ 5 mls/hr IV .Q20H PRN; Protocol PRN Reason: Agitation Last Titration: 06/11/18 05:50 Dose: 0 mg/hr, 0 mls/hr Levetiracetam (Keppra 500mg Ivpb) 500 mg in 100 mls @ 460 mls/hr IV Q12 [facility] Last Admin: 06/11/18 09:25 Dose: 460 mls/hr Dextrose (Dextrose 5% In Water 1000 Ml) 1,000 mls @ 50 mls/hr IV .Q20H [facility] Last Admin: 06/10/18 18:53 Dose: 50 mls/hr Lorazepam (Ativan) 4 mg IVP ONCE PRN; Protocol PRN Reason: prior to CT Last Admin: 06/06/18 23:36 Dose: 4 mg Losartan Potassium (Cozaar) 12.5 mg PO DAILY [facility] Last Admin: 06/11/18 10:30 Dose: 12.5 mg Thiamine HCl (Vitamin B1 Tab) 100 mg NG DAILY [facility] Last Admin: 06/11/18 11:05 Dose: 100 mg - Labs Labs: 06/11/18 05:15 06/11/18 07:00 PT 12.2 SECONDS (9.4-12.5) 06/10/18 08:20 INR 1.06 06/10/18 08:20 APTT 27.0 Seconds (25.1-36.5) 06/10/18 08:20 - Constitutional Appears: Non-toxic, No Acute Distress - Head Exam Head Exam: ATRAUMATIC, NORMAL INSPECTION, NORMOCEPHALIC - Eye Exam Eye Exam: Normal appearance - ENT Exam ENT Exam: Mucous Membranes Moist, Normal Exam - Neck Exam Neck Exam: Normal Inspection - Respiratory Exam Respiratory Exam: Rhonchi (upper lobes), NORMAL BREATHING PATTERN. absent: Clear to Ausculation Bilateral - Cardiovascular Exam Cardiovascular Exam: REGULAR RHYTHM - GI/Abdominal Exam GI & Abdominal Exam: Soft, Normal Bowel Sounds - Neurological Exam Neurological Exam: Alert, Awake, CN II-XII Intact Neuro motor strength exam: Left Upper Extremity: 4, Right Upper Extremity: 4, Left Lower Extremity: 4, Right Lower Extremity: 4 Additional comments: +Alexia, +Agraphia - Psychiatric Exam Psychiatric exam: Normal Mood. absent: Flat Affect - Skin Skin Exam: Warm Additional comments: papular rash on scalp Assessment and Plan - Assessment and Plan (Free Text) Assessment: 42 M with significant FMHx of CAD presenting s/p cardiac arrest secondary to [facility] found to have seizure like activity. -Continue Keppra 500 BID -CT head reveals no acute intracranial abnormalities -MRI brain -PT/OT <Patel,Erenutami - Last Filed: 06/14/18 13:05> Objective - Vital Signs/Intake and Output Vital Signs (last 24 hours): Temp Pulse Resp BP Pulse Ox 98.2 F 81 20 125/87 100 06/14/18 12:00 06/14/18 12:00 06/14/18 12:00 06/14/18 12:00 06/14/18 06:00 Intake and Output: 06/14/18 06/14/18 06:59 18:59 Intake Total 1560 Output Total 3 Balance 1557 - Medications Medications: Current Medications Acetaminophen (Tylenol 325mg Tab) 650 mg PO Q4H PRN PRN Reason: Fever >100.4 F Albuterol/Ipratropium (Duoneb 3 Mg/0.5 Mg (3 Ml) Ud) 3 ml IH Q2H PRN PRN Reason: Shortness of Breath Aspirin (Ecotrin) 81 mg PO DAILY [facility] Last Admin: 06/14/18 09:08 Dose: 81 mg Atorvastatin Calcium (Lipitor) 40 mg PO DIN [facility] Last Admin: 06/11/18 16:55 Dose: 40 mg Carvedilol (Coreg) 3.125 mg PO BID [facility] Last Admin: 06/14/18 09:07 Dose: 3.125 mg Clopidogrel Bisulfate (Plavix) 75 mg PO DAILY [facility] Last Admin: 06/14/18 09:08 Dose: 75 mg Digoxin (Lanoxin) 0.25 mg PO 1400 [facility] Famotidine (Pepcid) 40 mg PO HS [facility] Last Admin: 06/13/18 22:13 Dose: 40 mg Sodium Chloride (Sodium Chloride 0.9%) 1,000 mls @ 100 mls/hr IV .Q10H [facility] Last Admin: 06/13/18 22:15 Dose: 100 mls/hr Levetiracetam (Keppra) 500 mg PO BID [facility] Lorazepam (Ativan) 4 mg IVP ONCE PRN; Protocol PRN Reason: prior to CT Last Admin: 06/06/18 23:36 Dose: 4 mg Losartan Potassium (Cozaar) 25 mg PO DAILY [facility] Last Admin: 06/14/18 09:07 Dose: 25 mg Quetiapine Fumarate (Seroquel) 12.5 mg PO HS [facility]; Protocol Last Admin: 06/13/18 22:13 Dose: 12.5 mg Thiamine HCl (Vitamin B1 Tab) 100 mg PO DAILY [facility] Last Admin: 06/14/18 09:08 Dose: 100 mg - Labs Labs: 06/14/18 06:45 06/14/18 06:45 PT 12.2 SECONDS (9.4-12.5) 06/10/18 08:20 INR 1.06 06/10/18 08:20 APTT 27.0 Seconds (25.1-36.5) 06/10/18 08:20 Assessment and Plan - Assessment and Plan (Free Text) Assessment: I examined the patient with the resident as well as independently and agree with the assessment and plan. Thank you Dr. Patel Neurology
--- NOTE | 2018-06-11 19:03 | CARD ---
APPROVED REPORT Date of service: 06/11/2018 EKG Measurement Heart [id number] <Conclusion> Normal sinus rhythm with sinus arrhythmia Low voltage QRS Anterolateral infarct, age undetermined Abnormal ECG
[2018-06-12 06:55] LABS: BASO # 0.01 K/mm3 (0.0-2.0); BASO % 0.1 % (0.0-3.0); EOS # 0.1 (0.0-0.7); EOS % 0.5 % (1.5-5.0); GRAN # 9.58 (1.4-6.5); GRAN % 79.3 % (50.0-68.0); HEMOGLOBIN 11.4 g/dL (14.0-18.0); LYMPH # 1.3 (1.2-3.4); MEAN CELL VOLUME 95.5 fl (80.0-105.0); MEAN CORPUSCULAR HEMOGLOBIN 32.4 pg (25.0-35.0); MEAN CORPUSCULAR HGB CONC 33.9 g/dl (31.0-37.0); MEAN PLATELET VOLUME 9.4 fl (7.0-11.0); MONO # 1.1 (0.1-0.6); MONO % 9.1 % (1.0-6.0); RBC 3.52 10^6/uL (3.5-6.1); WHITE BLOOD COUNT 12.1 10^3/uL (4.5-11.0)
--- NOTE | 2018-06-12 07:04 | CP.PCM.PN ---
<Rhina Ramirez L - Last Filed: 06/12/18 12:45> Subjective - Date & Time of Evaluation Date of Evaluation: 06/12/18 Time of Evaluation: 07:04 - Subjective Subjective: Resident Progress Note for Hospitalist Service Patient examined at bedside. Patient resting comfortably saturating well on room air. Patient had an episode of auditory hallucination where he thought he heard gunshots. He states that this has never happened before and he does understand that there were no actual gunshots. Offers no complaints at this time. Denies fevers, chills, chest pain, shortness of breath, abdominal pain, diarrhea, dysuria. Objective - Vital Signs/Intake and Output Vital Signs (last 24 hours): Temp Pulse Resp BP Pulse Ox 98.7 F 88 23 118/57 L 95 06/11/18 11:30 06/12/18 02:00 06/11/18 18:40 06/11/18 19:54 06/11/18 18:40 - Medications Medications: Current Medications Acetaminophen (Tylenol 325mg Tab) 650 mg PO Q4H PRN PRN Reason: Fever >100.4 F Albuterol/Ipratropium (Duoneb 3 Mg/0.5 Mg (3 Ml) Ud) 3 ml IH Q2H PRN PRN Reason: Shortness of Breath Aspirin (Ecotrin) 81 mg PO DAILY [facility] Last Admin: 06/11/18 10:30 Dose: 81 mg Atorvastatin Calcium (Lipitor) 40 mg PO DIN [facility] Last Admin: 06/11/18 16:55 Dose: 40 mg Carvedilol (Coreg) 3.125 mg PO BID [facility] Last Admin: 06/11/18 19:54 Dose: 3.125 mg Clopidogrel Bisulfate (Plavix) 75 mg PO DAILY [facility] Last Admin: 06/11/18 10:30 Dose: 75 mg Famotidine (Pepcid) 40 mg PO HS [facility] Last Admin: 06/11/18 21:20 Dose: 40 mg Propofol (Diprivan) 1,000 mg in 100 mls @ 2.041 mls/hr IV .Q24H PRN; Protocol PRN Reason: TITRATE PER MD ORDER Last Titration: 06/11/18 05:50 Dose: 0 mcg/kg/min, 0 mls/hr Midazolam 100 mg/100ml in NS (Midazolam 100 Mg/100ml In Ns) 100 mg in 100 mls @ 5 mls/hr IV .Q20H PRN; Protocol PRN Reason: Agitation Last Titration: 06/11/18 05:50 Dose: 0 mg/hr, 0 mls/hr Levetiracetam (Keppra 500mg Ivpb) 500 mg in 100 mls @ 460 mls/hr IV Q12 JENN[facility]ER Last Admin: 06/11/18 21:19 Dose: 460 mls/hr Dextrose (Dextrose 5% In Water 1000 Ml) 1,000 mls @ 50 mls/hr IV .Q20H JENNIFER Last Admin: 06/11/18 16:00 Dose: 50 mls/hr Lorazepam (Ativan) 4 mg IVP ONCE PRN; Protocol PRN Reason: prior to CT Last Admin: 06/06/18 23:36 Dose: 4 mg Losartan Potassium (Cozaar) 12.5 mg PO DAILY [facility] Last Admin: 06/11/18 10:30 Dose: 12.5 mg Thiamine HCl (Vitamin B1 Tab) 100 mg NG DAILY [facility] Last Admin: 06/11/18 11:05 Dose: 100 mg - Labs Labs: 06/11/18 05:15 06/11/18 07:00 PT 12.2 SECONDS (9.4-12.5) 06/10/18 08:20 INR 1.06 06/10/18 08:20 APTT 27.0 Seconds (25.1-36.5) 06/10/18 08:20 - Additional Findings Additional findings: - Constitutional Appears: Well, Non-toxic - Head Exam Head Exam: ATRAUMATIC, NORMOCEPHALIC - Eye Exam Eye Exam: EOMI, Normal appearance - Neck Exam Neck Exam: Normal Inspection - Respiratory Exam Respiratory Exam: Clear to Auscultation Bilateral, NORMAL BREATHING PATTERN. absent: Accessory Muscle Use - Cardiovascular Exam Cardiovascular Exam: RRR, +S1, +S2 - GI/Abdominal Exam GI & Abdominal Exam: Soft, Normal Bowel Sounds, femoral dressing C/D/I - Extremities Exam Extremities Exam: Normal Inspection, Distal Pulses +2/4 absent: Calf Tenderness - Neurological Exam Neurological Exam: Alert, Awake - Psychiatric Exam Psychiatric exam: Normal Affect, Normal Mood - Skin Skin Exam: Dry, Intact, Normal Color, Warm Assessment and Plan - Assessment and Plan (Free Text) Assessment: 42 year old male with a past medical history of cannabis hyperemesis syndrome who was admitted to ICU s/p cardiac arrest and obtained ROSC with CPR and defibrillation, now s/p cardiac cath. Plan: Cardiac arrest - s/p cardiac cath with stents in proximal LAD, RCA, circumflex artery - EKG showed recent anterolateral M.I. - ECHO shows EF 26%, akinetic apex, mild TR, mild/mod pulm HTN - ICU and cardiology consulted - Losartan 12.5 mg PO daily - Aspirin 81 mg PO daily, Plavix 65 mg PO daily - Lipitor 40 mg PO DIN on hold due to rhabdo - Carvedilol 3.125 mg PO BID - PT/OT Seizures - now s/p extubation - CT head shows no acute intracranial abnormalities - UDS positive for cannabinoids - VEEG shows moderate to severe background slowing, no seizures - Neurology consulted - Keppra 500 mg IV Q12H - MRI contraindicated due to recent stent placement Fever - afebrile - Tylenol PRN - 06/06 BCx neg x2, UCx neg - 05/12 repeat cultures negative - CXR negative for acute pathology GI bleed - Hgb stable - monitor and transfuse as needed - hold aspirin - GI consulted. Recs appreciated - Pepcid 40 mg PO daily Hypoglycemia - D5W at 50 mls/hr - Accuchecks q4h Metabolic acidosis - resolved - bicarb drip discontinued PPX -SCD, pepcid Case discussed with Dr. Harshal Ramirez PGY-1 <Jared Caputo - Last Filed: 06/12/18 15:52> Objective - Vital Signs/Intake and Output Vital Signs (last 24 hours): Temp Pulse Resp BP Pulse Ox 99.1 F 100 H 20 114/77 96 06/12/18 12:24 06/12/18 14:00 06/12/18 12:24 06/12/18 12:24 06/12/18 11:00 Intake and Output: 06/12/18 06/12/18 06:59 18:59 Intake Total 1600 250 Output Total 1150 500 Balance 450 -250 - Medications Medications: Current Medications Acetaminophen (Tylenol 325mg Tab) 650 mg PO Q4H PRN PRN Reason: Fever >100.4 F Albuterol/Ipratropium (Duoneb 3 Mg/0.5 Mg (3 Ml) Ud) 3 ml IH Q2H PRN PRN Reason: Shortness of Breath Aspirin (Ecotrin) 81 mg PO DAILY [facility] Last Admin: 06/12/18 10:13 Dose: 81 mg Atorvastatin Calcium (Lipitor) 40 mg PO DIN [facility] Last Admin: 06/11/18 16:55 Dose: 40 mg Carvedilol (Coreg) 3.125 mg PO BID [facility] Last Admin: 06/12/18 10:11 Dose: 3.125 mg Clopidogrel Bisulfate (Plavix) 75 mg PO DAILY [facility] Last Admin: 06/12/18 10:11 Dose: 75 mg Famotidine (Pepcid) 40 mg PO HS [facility] Last Admin: 06/11/18 21:20 Dose: 40 mg Levetiracetam (Keppra 500mg Ivpb) 500 mg in 100 mls @ 460 mls/hr IV Q12 [facility] Last Admin: 06/12/18 10:12 Dose: 460 mls/hr Sodium Chloride (Sodium Chloride 0.9%) 1,000 mls @ 100 mls/hr IV .Q10H [facility] Last Admin: 06/12/18 10:53 Dose: 100 mls/hr Lorazepam (Ativan) 4 mg IVP ONCE PRN; Protocol PRN Reason: prior to CT Last Admin: 06/06/18 23:36 Dose: 4 mg Losartan Potassium (Cozaar) 12.5 mg PO DAILY [facility] Last Admin: 06/12/18 10:13 Dose: 12.5 mg Thiamine HCl (Vitamin B1 Tab) 100 mg NG DAILY [facility] Last Admin: 06/12/18 10:11 Dose: 100 mg - Labs Labs: 06/12/18 06:25 06/12/18 06:25 PT 12.2 SECONDS (9.4-12.5) 06/10/18 08:20 INR 1.06 06/10/18 08:20 APTT 27.0 Seconds (25.1-36.5) 06/10/18 08:20 Attending/Attestation - Attestation I have personally seen and examined this patient.: Yes I have fully participated in the care of the patient.: Yes I have reviewed all pertinent clinical information, including history, physical exam and plan: Yes Notes (Text): 06/12/18 15:49 Medical record note made by the resident after discussion with my direction and input after the patient was personally seen and examined by me. I have reviewed the chart and agree that the record accurately reflects by personal performance of the history, physical exam, data review, and medical decision-making, in the course for the patient. I have also personally directed the plan of care. 42 yrs old male with past medical history of cannabis use who presented s/p cardiac arrest. Obtained ROSC with CPR and defibrillation for vtach on the field. Patient was intubated for airway protection and agonal breathing. He was found to have seizures and started on keppra, versed and proprofol. CT head was negative. l.Patient is on Keppra for seizure. EKG showed some ST changes in anterolateral leads. Initial troponin was negative however repeat troponins were 0.69 and 0.42.Echocardiogram showed severe systolic dysfunction. EF 20%.Patient was evaluated by cardiology ,underwent cardiac cath yesterday that showed e vessel disease and had cardiac stent placed in in proximal LAD, RCA, circumflex artery. Patient is on ASA/Plavix/Cozar/Coreg. Statin is on hold due to elevated CK level. Patient was extubated yesterday, on room air, no further seizure, but had auditory hallucination last night , ICU Delerium ?.Psych is consulted. Patient is for transferred to telemetry. We will also get Physical therapy. Management plan was discussed in detail with patient. Education was provided.
[2018-06-12 07:17] LABS: ALB/GLOB RATIO 1.1 (1.1-1.8); ALBUMIN 3.2 g/dL (3.0-4.8); ALT/SGPT 39 U/L (7-56); AST/SGOT 62 U/L (17-59); BLOOD UREA NITROGEN 3 mg/dL (7-21); CALCIUM 8.6 mg/dL (8.4-10.5); GFR NON-AFRICAN AMERICAN > 60
[2018-06-12] MEDS ORDERED: Potassium Chloride 40 mEq/30 ml LIQ UD PO ONE (07:58)
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
[2018-06-12 08:15] LABS: CK-MB 2.6 ng/mL (0.0-3.6)
[2018-06-12] MEDS: levETIRAcetam 500mg IVPB 500 MG/100 ML BAG IV SCH ×2 (10:12→22:37)
[2018-06-12] MEDS ORDERED: Magnesium Sulfate 1 gm in D5W 1 GM/100 ML BAG IVPB ONE (10:45)
[2018-06-12] MEDS: Sodium Chloride 0.9% 1,000 ML IV SCH ×2 (10:53→22:39)
--- NOTE | 2018-06-12 12:41 | PN ---
DATE: 06/12/2018 SUBJECTIVE: The patient was out of bed in a chair all day. OBJECTIVE: VITAL SIGNS: Blood pressure 118/69, heart rates in the 70s. NECK: Negative JVD. LUNGS: Without rales. HEART: Reveals S1, S2. EXTREMITIES: Without edema. LABORATORY DATA: Hemoglobin is 11.4. Chemistries, BUN and creatinine unremarkable. IMPRESSION: 1. Status post cardiopulmonary arrest. 2. Status post multivessel percutaneous transluminal coronary angioplasty and stent. 3. Dilated cardiomyopathy. 4. Multivessel coronary artery disease. 5. Chronic obstructive pulmonary disease. Given these findings, we need to transfer the patient to telemetry and begin ambulation. Physical therapy will be necessary. Brayan Moon MD
--- NOTE | 2018-06-12 15:03 | CP.PCM.PN ---
<Davin Brown - Last Filed: 06/12/18 15:06> Subjective - Date & Time of Evaluation Date of Evaluation: 06/12/18 Time of Evaluation: 08:30 - Subjective Subjective: Patient seen and examined at bedside in no acute distress. Denies headache, dizziness, changes in vision. - Constitutional Appears: Non-toxic, No Acute Distress - Head Exam Head Exam: ATRAUMATIC, NORMAL INSPECTION, NORMOCEPHALIC - Eye Exam Eye Exam: Normal appearance - ENT Exam ENT Exam: Mucous Membranes Moist, Normal Exam - Neck Exam Neck Exam: Normal Inspection - Respiratory Exam Respiratory Exam: Rhonchi (upper lobes), NORMAL BREATHING PATTERN. absent: Clear to Ausculation Bilateral - Cardiovascular Exam Cardiovascular Exam: REGULAR RHYTHM - GI/Abdominal Exam GI & Abdominal Exam: Soft, Normal Bowel Sounds - Neurological Exam Neurological Exam: Alert, Awake, CN II-XII Intact Neuro motor strength exam: Left Upper Extremity: 4, Right Upper Extremity: 4, Left Lower Extremity: 4, Right Lower Extremity: 4 Additional comments: (-)Alexia, (-)Agraphia ; improved from previous physical exam - Psychiatric Exam Psychiatric exam: Normal Mood. absent: Flat Affect - Skin Skin Exam: Warm Additional comments: papular rash on scalp Objective - Vital Signs/Intake and Output Vital Signs (last 24 hours): Temp Pulse Resp BP Pulse Ox 99.1 F 81 20 114/77 96 06/12/18 12:24 06/12/18 12:24 06/12/18 12:24 06/12/18 12:24 06/12/18 11:00 Intake and Output: 06/12/18 06/12/18 06:59 18:59 Intake Total 1600 250 Output Total 1150 500 Balance 450 -250 - Medications Medications: Current Medications Acetaminophen (Tylenol 325mg Tab) 650 mg PO Q4H PRN PRN Reason: Fever >100.4 F Albuterol/Ipratropium (Duoneb 3 Mg/0.5 Mg (3 Ml) Ud) 3 ml IH Q2H PRN PRN Reason: Shortness of Breath Aspirin (Ecotrin) 81 mg PO DAILY [facility] Last Admin: 06/12/18 10:13 Dose: 81 mg Atorvastatin Calcium (Lipitor) 40 mg PO DIN [facility] Last Admin: 06/11/18 16:55 Dose: 40 mg Carvedilol (Coreg) 3.125 mg PO BID [facility] Last Admin: 06/12/18 10:11 Dose: 3.125 mg Clopidogrel Bisulfate (Plavix) 75 mg PO DAILY [facility] Last Admin: 06/12/18 10:11 Dose: 75 mg Famotidine (Pepcid) 40 mg PO HS [facility] Last Admin: 06/11/18 21:20 Dose: 40 mg Levetiracetam (Keppra 500mg Ivpb) 500 mg in 100 mls @ 460 mls/hr IV Q12 [facility] Last Admin: 06/12/18 10:12 Dose: 460 mls/hr Sodium Chloride (Sodium Chloride 0.9%) 1,000 mls @ 100 mls/hr IV .Q10H [facility] Last Admin: 06/12/18 10:53 Dose: 100 mls/hr Lorazepam (Ativan) 4 mg IVP ONCE PRN; Protocol PRN Reason: prior to CT Last Admin: 06/06/18 23:36 Dose: 4 mg Losartan Potassium (Cozaar) 12.5 mg PO DAILY [facility] Last Admin: 06/12/18 10:13 Dose: 12.5 mg Thiamine HCl (Vitamin B1 Tab) 100 mg NG DAILY [facility] Last Admin: 06/12/18 10:11 Dose: 100 mg - Labs Labs: 06/12/18 06:25 06/12/18 06:25 PT 12.2 SECONDS (9.4-12.5) 06/10/18 08:20 INR 1.06 06/10/18 08:20 APTT 27.0 Seconds (25.1-36.5) 06/10/18 08:20 Assessment and Plan - Assessment and Plan (Free Text) Assessment: 42 M with significant FMHx of CAD presenting s/p cardiac arrest secondary to CA found to have seizure like activity. 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 he can read, and write. I examined the patient independently and formulated the assessment and plan. Dr. Patel Objective - Vital Signs/Intake and Output Vital Signs (last 24 hours): Temp Pulse Resp BP Pulse Ox 99.2 F 105 H 20 127/87 96 06/12/18 17:32 06/12/18 18:05 06/12/18 17:32 06/12/18 17:32 06/12/18 11:00 Intake and Output: 06/12/18 06/13/18 18:59 06:59 Intake Total 850 Output Total 900 Balance -50 - Medications Medications: Current Medications Acetaminophen (Tylenol 325mg Tab) 650 mg PO Q4H PRN PRN Reason: Fever >100.4 F Albuterol/Ipratropium (Duoneb 3 Mg/0.5 Mg (3 Ml) Ud) 3 ml IH Q2H PRN PRN Reason: Shortness of Breath Aspirin (Ecotrin) 81 mg PO DAILY [facility] Last Admin: 06/12/18 10:13 Dose: 81 mg Atorvastatin Calcium (Lipitor) 40 mg PO DIN [facility] Last Admin: 06/11/18 16:55 Dose: 40 mg Carvedilol (Coreg) 3.125 mg PO BID [facility] Last Admin: 06/12/18 18:05 Dose: 3.125 mg Clopidogrel Bisulfate (Plavix) 75 mg PO DAILY [facility] Last Admin: 06/12/18 10:11 Dose: 75 mg Famotidine (Pepcid) 40 mg PO HS [facility] Last Admin: 06/11/18 21:20 Dose: 40 mg Levetiracetam (Keppra 500mg Ivpb) 500 mg in 100 mls @ 460 mls/hr IV Q12 [facility] Last Admin: 06/12/18 10:12 Dose: 460 mls/hr Sodium Chloride (Sodium Chloride 0.9%) 1,000 mls @ 100 mls/hr IV .Q10H [facility] Last Admin: 06/12/18 10:53 Dose: 100 mls/hr Lorazepam (Ativan) 4 mg IVP ONCE PRN; Protocol PRN Reason: prior to CT Last Admin: 06/06/18 23:36 Dose: 4 mg Losartan Potassium (Cozaar) 12.5 mg PO DAILY [facility] Last Admin: 06/12/18 10:13 Dose: 12.5 mg Thiamine HCl (Vitamin B1 Tab) 100 mg NG DAILY [facility] Last Admin: 06/12/18 10:11 Dose: 100 mg - Labs Labs: 06/12/18 06:25 06/12/18 06:25 PT 12.2 SECONDS (9.4-12.5) 06/10/18 08:20 INR 1.06 06/10/18 08:20 APTT 27.0 Seconds (25.1-36.5) 06/10/18 08:20
--- NOTE | 2018-06-12 17:04 | CARD ---
APPROVED REPORT Date of service: 06/12/2018 EXAM: Two-dimensional and M-mode echocardiogram with Doppler and color Doppler. INDICATION S/P NE 2D DIMENSIONS Left Atrium (2D)4.9 (1.6-4.0cm)IVSd1.0 (0.7-1.1cm) LVDd6.9 (3.9-5.9cm)PWd1.1 (0.7-1.1cm) LVDs6.2 (2.5-4.0cm)FS (%) 10.0 % LVEF (%)21.2 (>50%) M-Mode DIMENSIONS Aortic Root3.90 (2.2-3.7cm)Aortic Cusp Exc.2.30 (1.5-2.0cm) Aortic Valve AoV Peak Hbzogqlu920.0cm/Viral Peak GR.7mmHgAI P 1/2 [id number] Mitral Valve MV E Pnkezsul88.8cm/sMV A Zifjmtug83.1cm/sE/A ratio1.4 TDI E/Lateral E'0.0E/Medial E'0.0 Pulmonary Valve PV Peak Dpnatocw29.5cm/sPV Peak Grad.3mmHg Tricuspid Valve TR Peak [id number]/sRAP MESNATAD60acChWO Peak Gr.27mmHg [id number] LEFT VENTRICLE The Left Ventricle is severely dilated. There is normal left ventricular wall thickness. The systolic function is severely impaired. 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 RIGHT VENTRICLE The right ventricle is normal size. There is normal right ventricular wall thickness. The right ventricular systolic function is normal. ATRIA The left atrium is mildly dilated. The right atrium is mildly dilated. AORTIC VALVE The aortic valve is normal in structure. There is mild aortic regurgitation. There is no aortic valvular stenosis. MITRAL VALVE The mitral valve is mildly thickened. Mitral regurgitation is mild. There is no mitral valve stenosis. TRICUSPID VALVE There is trace tricuspid regurgitation. There is mild pulmonary hypertension. PULMONIC VALVE There is trace pulmonic valvular regurgitation. GREAT VESSELS The aortic root is mildly enlarged. The IVC collapses <50% with inspiration. PERICARDIAL EFFUSION There is a trace pericardial effusion. <Conclusion> The Left Ventricle is severely dilated. There is normal left ventricular wall thickness. The systolic function is severely impaired. 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 There is mild aortic regurgitation. Mitral regurgitation is mild. There is mild pulmonary hypertension.
[2018-06-13] MEDS: Sodium Chloride 0.9% 1,000 ML IV SCH ×3 (03:00→22:15)
[2018-06-13 07:19] LABS: BASO # 0.02 K/mm3 (0.0-2.0); BASO % 0.2 % (0.0-3.0); EOS # 0.2 (0.0-0.7); EOS % 1.8 % (1.5-5.0); GRAN # 7.1 (1.4-6.5); GRAN % 66.4 % (50.0-68.0); HEMOGLOBIN 10.1 g/dL (14.0-18.0); LYMPH # 2.3 (1.2-3.4); LYMPH % 21.3 % (22.0-35.0); MEAN CELL VOLUME 96.2 fl (80.0-105.0); MEAN CORPUSCULAR HEMOGLOBIN 31.8 pg (25.0-35.0); MEAN PLATELET VOLUME 9.3 fl (7.0-11.0); MONO # 1.1 (0.1-0.6); MONO % 10.3 % (1.0-6.0); RBC 3.18 10^6/uL (3.5-6.1); RED CELL DISTRIBUTION WIDTH 12.9 % (11.5-14.5); WHITE BLOOD COUNT 10.7 10^3/uL (4.5-11.0)
[2018-06-13 08:10] LABS: ALB/GLOB RATIO 1.1 (1.1-1.8); ALBUMIN 3.1 g/dL (3.0-4.8); ALT/SGPT 44 U/L (7-56); AST/SGOT 59 U/L (17-59); BLOOD UREA NITROGEN 4 mg/dL (7-21); CALCIUM 8.2 mg/dL (8.4-10.5); GFR NON-AFRICAN AMERICAN > 60
[2018-06-13 09:01] LABS: CK-MB 2.3 ng/mL (0.0-3.6)
[2018-06-13] MEDS: levETIRAcetam 500mg IVPB 500 MG/100 ML BAG IV SCH ×2 (10:21→22:13)
--- NOTE | 2018-06-13 12:33 | PN ---
DATE: 06/13/2018 CARDIOLOGY FOLLOWUP SUBJECTIVE: The patient is awake, alert, has not been out of bed despite multiple orders to get the patient out of bed. PHYSICAL EXAMINATION: VITAL SIGNS: Blood pressure 132/60, the heart rates in the 90s. NECK: Negative JVD. LUNGS: Decreased breath sounds. HEART: Reveals S1, S2. EXTREMITIES: Without change. LABORATORY DATA: Hemoglobin is 10.1. Chemistries, BUN and creatinine unremarkable. The potassium is 3.5. The CPK is down to 823. IMPRESSION: 1. Status post cardiogenic shock. 2. Status post respiratory failure. 3. Status post anterior wall myocardial infarction. 4. Status post multivessel percutaneous transluminal coronary angioplasty and stent. 5. Ischemic dilated cardiomyopathy. 6. Chronic obstructive pulmonary disease. 7. Drug dependence. Given these findings, I have left strict orders to get the patient out of bed. I have ordered physical therapy for the patient. The patient needs to begin ambulation. The patient's condition would warrant a LifeVest. However, it is unclear whether we can obtain a LifeVest for the patient given his lack of insurance and his inability to pay for it. Brayan Moon MD
[2018-06-13] MEDS ORDERED: Potassium Chloride 40 mEq/30 ml LIQ UD PO ONE (13:10)
--- NOTE | 2018-06-13 13:14 | CP.PCM.PN ---
<Maddy Bugros - Last Filed: 06/13/18 13:11> Subjective - Date & Time of Evaluation Date of Evaluation: 06/13/18 Time of Evaluation: 08:14 - Subjective Subjective: Maddy Burgos Y1 Hospital Progress Note Patient seen and examined at bedside this morning. No acute events reported overnight. Tolerating diet without difficulty. Offers no complaints today. Denies hallucinations. Denies CP, SOB, headaches, nausea, vomiting and fevers. Objective - Vital Signs/Intake and Output Vital Signs (last 24 hours): Temp Pulse Resp BP Pulse Ox 98.8 F 73 21 124/77 99 06/13/18 12:00 06/13/18 12:00 06/13/18 12:00 06/13/18 12:00 06/13/18 06:00 Intake and Output: 06/13/18 06/13/18 06:59 18:59 Intake Total 420 Output Total 700 Balance -280 - Medications Medications: Current Medications Acetaminophen (Tylenol 325mg Tab) 650 mg PO Q4H PRN PRN Reason: Fever >100.4 F Albuterol/Ipratropium (Duoneb 3 Mg/0.5 Mg (3 Ml) Ud) 3 ml IH Q2H PRN PRN Reason: Shortness of Breath Aspirin (Ecotrin) 81 mg PO DAILY [facility] Last Admin: 06/13/18 10:20 Dose: 81 mg Atorvastatin Calcium (Lipitor) 40 mg PO DIN [facility] Last Admin: 06/11/18 16:55 Dose: 40 mg Carvedilol (Coreg) 3.125 mg PO BID [facility] Last Admin: 06/13/18 10:20 Dose: 3.125 mg Clopidogrel Bisulfate (Plavix) 75 mg PO DAILY [facility] Last Admin: 06/13/18 10:19 Dose: 75 mg Famotidine (Pepcid) 40 mg PO HS [facility] Last Admin: 06/12/18 22:38 Dose: 40 mg Levetiracetam (Keppra 500mg Ivpb) 500 mg in 100 mls @ 460 mls/hr IV Q12 [facility] Last Admin: 06/13/18 10:21 Dose: 460 mls/hr Sodium Chloride (Sodium Chloride 0.9%) 1,000 mls @ 100 mls/hr IV .Q10H [facility] Last Admin: 06/13/18 10:22 Dose: 100 mls/hr Lorazepam (Ativan) 4 mg IVP ONCE PRN; Protocol PRN Reason: prior to CT Last Admin: 06/06/18 23:36 Dose: 4 mg Losartan Potassium (Cozaar) 25 mg PO DAILY [facility] Last Admin: 06/13/18 10:21 Dose: 25 mg Quetiapine Fumarate (Seroquel) 12.5 mg PO HS [facility]; Protocol Thiamine HCl (Vitamin B1 Tab) 100 mg PO DAILY [facility] Last Admin: 06/13/18 10:20 Dose: 100 mg - Labs Labs: 06/13/18 06:30 06/13/18 06:30 PT 12.2 SECONDS (9.4-12.5) 06/10/18 08:20 INR 1.06 06/10/18 08:20 APTT 27.0 Seconds (25.1-36.5) 06/10/18 08:20 - Additional Findings Additional findings: - Constitutional Appears: Well, Non-toxic - Head Exam Head Exam: ATRAUMATIC, NORMOCEPHALIC - Eye Exam Eye Exam: EOMI, Normal appearance - Neck Exam Neck Exam: Normal Inspection - Respiratory Exam Respiratory Exam: Clear to Auscultation Bilateral, NORMAL BREATHING PATTERN. absent: Accessory Muscle Use - Cardiovascular Exam Cardiovascular Exam: RRR, +S1, +S2 - GI/Abdominal Exam GI & Abdominal Exam: Soft, Normal Bowel Sounds, femoral dressing C/D/I - Extremities Exam Extremities Exam: Normal Inspection, Distal Pulses +2/4 absent: Calf Tenderness - Neurological Exam Neurological Exam: Alert, Awake, AO x 3 - Skin Skin Exam: Dry, Intact, Normal Color, Warm Assessment and Plan - Assessment and Plan (Free Text) Assessment: 42 year old male with a past medical history of cannabis hyperemesis syndrome who was admitted to ICU s/p cardiac arrest and obtained ROSC with CPR and defibrillation, now s/p cardiac cath. Plan: Cardiac arrest -s/p cardiac cath with ROMANA stents in proximal LAD, RCA, circumflex artery -EKG showed recent anterolateral M.I. -ECHO shows EF 26%, akinetic apex, mild TR, mild/mod pulm HTN -s/p ICU, extubation -plan for exercise stress test on Friday to evaluate for arrhythmias -Losartan 12.5 mg PO daily -Aspirin 81 mg PO daily, Plavix 65 mg PO daily -Carvedilol 3.125 mg PO BID -continue PT/OT Rhabdo -CPK is downtrending, monitor -Lipitor 40 mg PO DIN on hold due to rhabdo Seizures -now s/p extubation day 3 -CT head shows no acute intracranial abnormalities -UDS positive for cannabinoids -VEEG shows moderate to severe background slowing, no seizures -Neurology consulted -Keppra 500 mg IV Q12H PO -MRI contraindicated due to recent stent placement Fever -afebrile -Tylenol PRN -06/06 BCx neg x2, UCx neg -05/12 repeat cultures negative -CXR negative for acute pathology Hypoglycemia -D5W at 50 cc/hr -Accuchecks q4h, monitor PPX/Diet -SCD, pepcid -HHD Patient seen and case discussed with attending, Dr. Berman <Yoko Berman - Last Filed: 06/13/18 13:34> Objective - Vital Signs/Intake and Output Vital Signs (last 24 hours): Temp Pulse Resp BP Pulse Ox 98.8 F 73 21 124/77 99 06/13/18 12:00 06/13/18 12:00 06/13/18 12:00 06/13/18 12:00 06/13/18 06:00 Intake and Output: 06/13/18 06/13/18 06:59 18:59 Intake Total 420 Output Total 700 Balance -280 - Medications Medications: Current Medications Acetaminophen (Tylenol 325mg Tab) 650 mg PO Q4H PRN PRN Reason: Fever >100.4 F Albuterol/Ipratropium (Duoneb 3 Mg/0.5 Mg (3 Ml) Ud) 3 ml IH Q2H PRN PRN Reason: Shortness of Breath Aspirin (Ecotrin) 81 mg PO DAILY [facility] Last Admin: 06/13/18 10:20 Dose: 81 mg Atorvastatin Calcium (Lipitor) 40 mg PO DIN [facility] Last Admin: 06/11/18 16:55 Dose: 40 mg Carvedilol (Coreg) 3.125 mg PO BID [facility] Last Admin: 06/13/18 10:20 Dose: 3.125 mg Clopidogrel Bisulfate (Plavix) 75 mg PO DAILY [facility] Last Admin: 06/13/18 10:19 Dose: 75 mg Famotidine (Pepcid) 40 mg PO HS [facility] Last Admin: 06/12/18 22:38 Dose: 40 mg Levetiracetam (Keppra 500mg Ivpb) 500 mg in 100 mls @ 460 mls/hr IV Q12 [facility] Last Admin: 06/13/18 10:21 Dose: 460 mls/hr Sodium Chloride (Sodium Chloride 0.9%) 1,000 mls @ 100 mls/hr IV .Q10H [facility] Last Admin: 06/13/18 10:22 Dose: 100 mls/hr Lorazepam (Ativan) 4 mg IVP ONCE PRN; Protocol PRN Reason: prior to CT Last Admin: 06/06/18 23:36 Dose: 4 mg Losartan Potassium (Cozaar) 25 mg PO DAILY [facility] Last Admin: 06/13/18 10:21 Dose: 25 mg Quetiapine Fumarate (Seroquel) 12.5 mg PO HS [facility]; Protocol Thiamine HCl (Vitamin B1 Tab) 100 mg PO DAILY [facility] Last Admin: 06/13/18 10:20 Dose: 100 mg - Labs Labs: 06/13/18 06:30 06/13/18 06:30 PT 12.2 SECONDS (9.4-12.5) 06/10/18 08:20 INR 1.06 06/10/18 08:20 APTT 27.0 Seconds (25.1-36.5) 06/10/18 08:20 Attending/Attestation - Attestation I have personally seen and examined this patient.: Yes I have fully participated in the care of the patient.: Yes I have reviewed all pertinent clinical information, including history, physical exam and plan: Yes Notes (Text): 06/13/18 13:30 42 year old male with past medical history of cannabis use who presented s/p cardiac arrest. He obtained ROSC with CPR and defibrillation for vtach on the field. He was initially intubated for airway protection and agonal breathing. He was started on keppra for seizures. CT head was negative. He had some ischemic EKG changes with echocardiogram showing severe systolic dysfunction with EF of 20%. He was seen by cardiology and underwent cardiac cath with stent placements in proximal LAD, RCA and circumflex artery. He is on aspirin, plavix, cozaar and coreg. He is not on statin secondary to rhabdomyolysis which is improving with IV fluids. Will replete and repeat potassium. Psychiatry evaluation was also requested for episode of auditory hallucinations yesterday. Yoko Berman MD Hospitalist.
[2018-06-14 07:13] LABS: BASO # 0.02 K/mm3 (0.0-2.0); BASO % 0.2 % (0.0-3.0); EOS # 0.2 (0.0-0.7); EOS % 1.4 % (1.5-5.0); GRAN # 8.76 (1.4-6.5); GRAN % 74.2 % (50.0-68.0); HEMOGLOBIN 9.5 g/dL (14.0-18.0); LYMPH % 16.6 % (22.0-35.0); MEAN CELL VOLUME 96.9 fl (80.0-105.0); MEAN CORPUSCULAR HEMOGLOBIN 32.6 pg (25.0-35.0); MEAN CORPUSCULAR HGB CONC 33.7 g/dl (31.0-37.0); MONO # 0.9 (0.1-0.6); MONO % 7.6 % (1.0-6.0); RBC 2.91 10^6/uL (3.5-6.1); RED CELL DISTRIBUTION WIDTH 13.1 % (11.5-14.5); WHITE BLOOD COUNT 11.8 10^3/uL (4.5-11.0)
[2018-06-14 07:31] LABS: ALB/GLOB RATIO 1.2 (1.1-1.8); ALBUMIN 3.2 g/dL (3.0-4.8); ALT/SGPT 57 U/L (7-56); AST/SGOT 64 U/L (17-59); BLOOD UREA NITROGEN 6 mg/dL (7-21); CALCIUM 8.5 mg/dL (8.4-10.5); GFR NON-AFRICAN AMERICAN > 60
[2018-06-14] MEDS ORDERED: Potassium Chloride 40 mEq/30 ml LIQ UD PO ONE (07:43)
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
[2018-06-14 08:14] LABS: CK-MB 1.7 ng/mL (0.0-3.6)
[2018-06-14] MEDS: levETIRAcetam 500mg IVPB 500 MG/100 ML BAG IV SCH (09:08)
[2018-06-14] MEDS ORDERED: Magnesium Sulfate 2 GM in Sodium Chloride 0.9% 100 ML IVPB ONE (10:07)
[2018-06-14] MEDS ORDERED: Magnesium Sulfate 2 gm/50 ml 2 GM/50 ML BAG IVPB ONE (10:15)
[2018-06-14] MEDS ORDERED: Potassium Chloride 20 mEq ER Tab PO ONE (10:20)
--- NOTE | 2018-06-14 12:22 | PN ---
DATE: 06/14/2018 REASON FOR ADMISSION: Status post cardiogenic shock, status post PTCA, status post COPD exacerbation. Now patient is in telemetry 263, bed 1. Denies any chest pain, shortness of breath or any palpitation. OBJECTIVE: As follows; GENERAL: Not in apparent distress. VITAL SIGNS: Temperature afebrile, heart rate 82 and blood pressure 114/67. HEENT: PERRLA. Extraocular muscles intact. NECK: Supple. No carotid bruit or thyromegaly. CHEST: Clear to auscultation. HEART: S1 and S2, regular. ABDOMEN: Soft. EXTREMITIES: Clubbing and cyanosis negative. LABORATORY DATA: Blood workup as follows; WBC 11.8, hemoglobin 9.5, hematocrit 28.2 and platelet count 314. Chemistry showed sodium 140, potassium 3.4, chloride 106, carbon dioxide of 26, anion gap of 11, BUN of 6 and creatinine 0.7. Telemetry shows normal sinus. IMPRESSION: A 42-year-old male with past medical history, active tobacco abuse, chronic obstructive pulmonary disease, drug dependant, status post Cardiogernic shock, status post respiratory failure, status post anterior wall myocardial infarction and status post multivessel percutaneous transluminal coronary angioplasty. Now in telemetry. Most recent echocardiogram done day before yesterday that revealed ejection fraction severely impaired, mild aortic regurgitation, mild mitral regurgitation, right ventricular systolic pressure 37. Calculate ejection fraction 20%. RECOMMENDATION: Continue Losartan. Continue Coreg, clopidogrel. Continue aspirin. We will add digoxin also and supplement potassium. Discuss with the resident taking care of the patient. We will transfer care tomorrow to Dr. Moon.Medical teamis concerned about LifeVest and consult has been placed for EP, Dr. Young for evaluation for LifeVest. Jared Sheldon MD MTDD
[2018-06-14] MEDS: Digoxin 250 mcg (0.25 mg) Tab PO SCH (14:29)
[2018-06-14] MEDS: levETIRAcetam 500 mg/5ml UD cups PO SCH (17:36)
[2018-06-14] MEDS ORDERED: Benzocaine/Menthol (Cepacol) Lozenge PO STA (21:21)
[2018-06-14 23:38] VITALS: RESP 20
[2018-06-15 05:34] VITALS: TEMP 98.6; O2SAT 97
--- NOTE | 2018-06-15 06:55 | CP.PCM.PN ---
Subjective - Date & Time of Evaluation Date of Evaluation: 06/15/18 Time of Evaluation: 06:53 - Subjective Subjective: Resident Progress Note for Hospitalist Service Objective - Vital Signs/Intake and Output Vital Signs (last 24 hours): Temp Pulse Resp BP Pulse Ox 98.6 F 92 H 20 116/79 97 06/15/18 05:33 06/15/18 05:33 06/15/18 05:33 06/15/18 05:33 06/15/18 05:33 Intake and Output: 06/14/18 06/15/18 18:59 06:59 Intake Total 720 Balance 720 - Medications Medications: Current Medications Acetaminophen (Tylenol 325mg Tab) 650 mg PO Q4H PRN PRN Reason: Fever >100.4 F Albuterol/Ipratropium (Duoneb 3 Mg/0.5 Mg (3 Ml) Ud) 3 ml IH Q2H PRN PRN Reason: Shortness of Breath Aspirin (Ecotrin) 81 mg PO DAILY [facility] Last Admin: 06/14/18 09:08 Dose: 81 mg Atorvastatin Calcium (Lipitor) 40 mg PO DIN [facility] Last Admin: 06/11/18 16:55 Dose: 40 mg Carvedilol (Coreg) 3.125 mg PO BID [facility] Last Admin: 06/14/18 17:32 Dose: 3.125 mg Clopidogrel Bisulfate (Plavix) 75 mg PO DAILY [facility] Last Admin: 06/14/18 09:08 Dose: 75 mg Digoxin (Lanoxin) 0.25 mg PO 1400 [facility] Last Admin: 06/14/18 14:29 Dose: 0.25 mg Famotidine (Pepcid) 40 mg PO HS [facility] Last Admin: 06/14/18 21:30 Dose: 40 mg Sodium Chloride (Sodium Chloride 0.9%) 1,000 mls @ 100 mls/hr IV .Q10H [facility] Last Admin: 06/13/18 22:15 Dose: 100 mls/hr Levetiracetam (Keppra) 500 mg PO BID [facility] Last Admin: 06/14/18 17:36 Dose: 500 mg Lorazepam (Ativan) 4 mg IVP ONCE PRN; Protocol PRN Reason: prior to CT Last Admin: 06/06/18 23:36 Dose: 4 mg Losartan Potassium (Cozaar) 25 mg PO DAILY [facility] Last Admin: 06/14/18 09:07 Dose: 25 mg Quetiapine Fumarate (Seroquel) 12.5 mg PO HS [facility]; Protocol Last Admin: 06/14/18 21:30 Dose: 12.5 mg Thiamine HCl (Vitamin B1 Tab) 100 mg PO DAILY [facility] Last Admin: 06/14/18 09:08 Dose: 100 mg - Labs Labs: 06/14/18 06:45 06/14/18 06:45 PT 12.2 SECONDS (9.4-12.5) 06/10/18 08:20 INR 1.06 06/10/18 08:20 APTT 27.0 Seconds (25.1-36.5) 06/10/18 08:20 Assessment and Plan - Assessment and Plan (Free Text) Assessment: 42 year old male with a past medical history of cannabis hyperemesis syndrome who was admitted to ICU s/p cardiac arrest and obtained ROSC with CPR and defibrillation, now s/p cardiac cath. Plan: Cardiac arrest -s/p cardiac cath with ROMANA stents in proximal LAD, RCA, circumflex artery -EKG showed recent anterolateral M.I. -ECHO shows EF 26%, akinetic apex, mild TR, mild/mod pulm HTN -s/p ICU, extubation -plan for exercise stress test on Friday to evaluate for arrhythmias -Losartan 12.5 mg PO daily -Aspirin 81 mg PO daily, Plavix 65 mg PO daily -Carvedilol 3.125 mg PO BID -continue PT/OT Rhabdo -CPK is downtrending, monitor -Lipitor 40 mg PO DIN on hold due to rhabdo Seizures -now s/p extubation day 3 -CT head shows no acute intracranial abnormalities -UDS positive for cannabinoids -VEEG shows moderate to severe background slowing, no seizures -Neurology consulted -Keppra 500 mg IV Q12H PO -MRI contraindicated due to recent stent placement Fever -afebrile -Tylenol PRN -06/06 BCx neg x2, UCx neg -05/12 repeat cultures negative -CXR negative for acute pathology Hypoglycemia -D5W at 50 cc/hr -Accuchecks q4h, monitor PPX/Diet -SCD, pepcid -HHD
[2018-06-15 07:12] LABS: BASO # 0.02 K/mm3 (0.0-2.0); BASO % 0.1 % (0.0-3.0); EOS # 0.2 (0.0-0.7); EOS % 1.6 % (1.5-5.0); GRAN # 9.85 (1.4-6.5); GRAN % 71.4 % (50.0-68.0); HEMOGLOBIN 11.4 g/dL (14.0-18.0); LYMPH # 2.6 (1.2-3.4); LYMPH % 18.8 % (22.0-35.0); MEAN CELL VOLUME 97.2 fl (80.0-105.0); MEAN CORPUSCULAR HEMOGLOBIN 31.8 pg (25.0-35.0); MEAN CORPUSCULAR HGB CONC 32.7 g/dl (31.0-37.0); MEAN PLATELET VOLUME 9.3 fl (7.0-11.0); MONO # 1.1 (0.1-0.6); MONO % 8.1 % (1.0-6.0); RBC 3.59 10^6/uL (3.5-6.1); RED CELL DISTRIBUTION WIDTH 13.2 % (11.5-14.5); WHITE BLOOD COUNT 13.8 10^3/uL (4.5-11.0)
[2018-06-15 07:27] LABS: ALB/GLOB RATIO 1.3 (1.1-1.8); ALBUMIN 4.1 g/dL (3.0-4.8); ALT/SGPT 61 U/L (7-56); AST/SGOT 62 U/L (17-59); BLOOD UREA NITROGEN 8 mg/dL (7-21); CALCIUM 9.3 mg/dL (8.4-10.5); GFR NON-AFRICAN AMERICAN > 60
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
[2018-06-15 09:03] LABS: CK-MB 1.5 ng/mL (0.0-3.6)
[2018-06-15 09:17] VITALS: BP 127/77; PULSE 76
[2018-06-15] MEDS: levETIRAcetam 500 mg/5ml UD cups PO SCH (09:19)
[2018-06-15] MEDS ORDERED: Influenza Vaccine 60 mcg/0.5 mL SYR (4YR UP) IM ONE (10:18)
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
[2018-06-15] MEDS: Digoxin 250 mcg (0.25 mg) Tab PO SCH (15:00)
[2018-06-15 15:02] VITALS: PULSE 106
--- NOTE | 2018-06-15 15:17 | PN ---
DATE: 06/15/2018 CARDIOLOGY FOLLOWUP SUBJECTIVE: The patient denies chest pain, denies shortness of breath. He underwent a stress test in which he completed up to 85% predicted. No shortness of breath, no chest pain noted and no arrhythmias noted. PHYSICAL EXAMINATION: VITAL SIGNS: Blood pressure 127/77, heart rates in the 70s. NECK: Negative JVD. LUNGS: Without rales. HEART: Reveals S1 and S2. EXTREMITIES: Without edema. LABORATORY DATA: Hemoglobin is 11.4. Chemistries, BUN and creatinine are unremarkable. His LFTs have come down. IMPRESSION: 1. The patient is stable from a cardiac perspective, status post cardiogenic shock. 2. History of multivessel percutaneous transluminal coronary angioplasty and stent. 3. Chronic obstructive pulmonary disease. 4. History of drug use. 5. Hypercholesterolemia. 6. Decreasing liver function tests. Given these findings, the patient is hemodynamically stable. From a cardiac perspective, he can be discharged. Medications were reviewed with the patient. I have given him an outpatient followup next week. I have discussed with the patient about the issues related to possible LifeVest. Given the patient's circumstances, he is unemployed and cannot afford to pay for it. We will re-discuss it again in the office. Brayan Moon MD
== END 2018-06-15 16:31 | disposition home or self-care (01) | DRG 174 ==
LOC: ED 12:32 → ERH 13:47 → CCU 16:07 → 2RNO 06-12 11:56
PROVIDERS: ADMIT Internal Medicine; ATTEND Internal Medicine
PROC: 5A1955Z Respiratory Ventilation, Greater than 96 Consecutive Hours (ICD-10-PCS; 2018-06-06)
PROC: 0BH17EZ Insertion of Endotracheal Airway into Trachea, Via Natural or Artificial Opening (ICD-10-PCS; 2018-06-06)
PROC: 027237Z Dilation of Coronary Artery, Three Arteries with Four or More Drug-eluting Intraluminal Devices, Percutaneous Approach (ICD-10-PCS; principal; 2018-06-10)
PROC: 3E033PZ Introduction of Platelet Inhibitor into Peripheral Vein, Percutaneous Approach (ICD-10-PCS; 2018-06-10)
PROC: 4A023N7 Measurement of Cardiac Sampling and Pressure, Left Heart, Percutaneous Approach (ICD-10-PCS; 2018-06-10)
PROC: B2111ZZ Fluoroscopy of Multiple Coronary Arteries using Low Osmolar Contrast (ICD-10-PCS; 2018-06-10)
PROC: B2151ZZ Fluoroscopy of Left Heart using Low Osmolar Contrast (ICD-10-PCS; 2018-06-10)
PROC: 5A09357 Assistance with Respiratory Ventilation, Less than 24 Consecutive Hours, Continuous Positive Airway Pressure (ICD-10-PCS; 2018-06-11)
DX: I21.09 ST elevation (STEMI) myocardial infarction involving other coronary artery of anterior wall (principal); J96.90 Respiratory failure, unspecified, unspecified whether with hypoxia or hypercapnia; R57.0 Cardiogenic shock; I47.2 Ventricular tachycardia; J44.9 Chronic obstructive pulmonary disease, unspecified; G93.40 Encephalopathy, unspecified; K92.2 Gastrointestinal hemorrhage, unspecified; G40.901 Epilepsy, unspecified, not intractable, with status epilepticus; E87.2 Acidosis; I42.0 Dilated cardiomyopathy; F12.23 Cannabis dependence with withdrawal; I25.10 Atherosclerotic heart disease of native coronary artery without angina pectoris; E87.6 Hypokalemia; D64.9 Anemia, unspecified; I25.5 Ischemic cardiomyopathy; M62.82 Rhabdomyolysis; E78.00 Pure hypercholesterolemia, unspecified; E83.42 Hypomagnesemia; F43.23 Adjustment disorder with mixed anxiety and depressed mood; I08.0 Rheumatic disorders of both mitral and aortic valves

== ENCOUNTER 2018-07-13 11:14 | Outpatient (CLI) | payer MEDICAID | END 2018-07-13 11:15 | disposition home or self-care (01) | LOC: LAB 11:14 | DX: I25.10 Atherosclerotic heart disease of native coronary artery without angina pectoris (principal); I10 Essential (primary) hypertension ==